=== PATIENT | male | born 1970 | race Caucasian/White ===

== ENCOUNTER 2016-08-10 19:00 | Emergency (ER) | payer MEDICARE, OTHER ==
[2016-08-10 19:58] VITALS: BP 135/76; RESP 18; TEMP 97.8
[2016-08-10 20:39] VITALS: PULSE 74
[2016-08-10] MEDS ORDERED: CLINDAMYCIN 150 MG CAP PO STA (20:46)
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
== END 2016-08-10 21:01 | disposition home or self-care (01) ==
LOC: EC 19:00
DX: K04.7 Periapical abscess without sinus (principal); J44.9 Chronic obstructive pulmonary disease, unspecified; Z87.891 Personal history of nicotine dependence; Z87.01 Personal history of pneumonia (recurrent); Z86.73 Personal history of transient ischemic attack (TIA), and cerebral infarction without residual deficits; Z79.899 Other long term (current) drug therapy; Z79.891 Long term (current) use of opiate analgesic; Z88.2 Allergy status to sulfonamides; Z88.5 Allergy status to narcotic agent; Z88.8 Allergy status to other drugs, medicaments and biological substances
CPT/HCPCS: 99282

== ENCOUNTER → 2016-08-31 | Outpatient (CLI) | payer MEDICARE, OTHER ==
[2016-08-31 11:52] LABS: Basophils % (A) 1 %; CH 31.9; Eosinophils # (A) 0.1 k/uL (0-0.7); Eosinophils % (A) 2 %; HDW 2.98; HGB 14.4 gm/dL (13.0-17.5); Luc # (Auto) 0.22; Luc % (Auto) 5; Lymphocytes # (A) 0.9 k/uL (1.0-4.8); Lymphocytes % (A) 19 %; MCH 31.6 pg (25.0-35.0); MCHC 33.5 g/dL (31.0-37.0); MCV 94.4 fL (80.0-100.0); Mean Platelet Volume 8.6; Monocytes # (A) 0.3 k/uL (0-1.0); Monocytes % (A) 6 %; Neutrophils # (A) 3.3 k/uL (1.3-7.7); Neutrophils % (A) 68 %; RBC 4.56 m/uL (4.30-5.90); RDW 12.9 % (11.5-15.5); WBC 4.9 k/uL (3.8-10.6); WBC (Perox) 5.02
[2016-08-31 12:19] LABS: ALT 64 U/L (21-72); AST 45 U/L (17-59); Alkaline Phosphatase 91 U/L (38-126); Anion Gap 11 mmol/L; Blood Urea Nitrogen 12 mg/dL (9-20); Calcium 9.7 mg/dL (8.4-10.2); Carbon Dioxide 23 mmol/L (22-30); Chloride 110 mmol/L (98-107); Glucose 91 mg/dL (74-99); Non-African American GFR(MDRD) >60 (>60 ml/min/1.73 sqM); Potassium 5.6 mmol/L (3.5-5.1); Sodium 144 mmol/L (137-145); Total Bilirubin 0.5 mg/dL (0.2-1.3); Total Protein 7.7 g/dL (6.3-8.2)
[2016-09-02 13:51] LABS: LOG HIV Copies/mL 5.33 (<1.60)
== END ==
LOC: LABWHC1 11:34
PROVIDERS: ATTEND Internal Medicine Infectious Disease
DX: B20 Human immunodeficiency virus [HIV] disease (principal)
CPT/HCPCS: 36415; 80053; 85025; 86360; 87536

== ENCOUNTER 2016-10-17 07:57 | Emergency (ER) | payer MEDICARE, OTHER ==
[2016-10-17 08:07] VITALS: BP 184/96; PULSE 98; RESP 20; TEMP 97.7
[2016-10-17] MEDS ORDERED: FLUCONAZOLE 100 MG TAB PO STA (08:22)
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
== END 2016-10-17 08:50 | disposition home or self-care (01) ==
LOC: EC 07:57
DX: B37.0 Candidal stomatitis (principal); Z79.899 Other long term (current) drug therapy; Z88.5 Allergy status to narcotic agent; Z88.2 Allergy status to sulfonamides; Z88.8 Allergy status to other drugs, medicaments and biological substances
CPT/HCPCS: 99282

== ENCOUNTER → 2017-01-24 | Outpatient (CLI) | payer MEDICARE, OTHER ==
[2017-01-24 18:12] LABS: Basophils % (A) 1 %; CH 32.9; CHCM 35.3; Eosinophils # (A) 0.2 k/uL (0-0.7); Eosinophils % (A) 4 %; HCT 44.3 % (39.0-53.0); HDW 3.01; HGB 15.1 gm/dL (13.0-17.5); Luc # (Auto) 0.09; Luc % (Auto) 2; Lymphocytes # (A) 0.8 k/uL (1.0-4.8); Lymphocytes % (A) 18 %; MCH 31.8 pg (25.0-35.0); MCV 93.5 fL (80.0-100.0); Mean Platelet Volume 7.8; Monocytes # (A) 0.3 k/uL (0-1.0); Monocytes % (A) 7 %; Neutrophils % (A) 68 %; RBC 4.74 m/uL (4.30-5.90); RDW 14.5 % (11.5-15.5); WBC 4.4 k/uL (3.8-10.6)
[2017-01-24 18:18] LABS: ALT 66 U/L (21-72); AST 40 U/L (17-59); Alkaline Phosphatase 101 U/L (38-126); Anion Gap 11 mmol/L; Blood Urea Nitrogen 13 mg/dL (9-20); Calcium 9.9 mg/dL (8.4-10.2); Carbon Dioxide 27 mmol/L (22-30); Chloride 106 mmol/L (98-107); Glucose 87 mg/dL (74-99); Non-African American GFR(MDRD) >60 (>60 ml/min/1.73 sqM); Potassium 5.2 mmol/L (3.5-5.1); Sodium 144 mmol/L (137-145); Total Bilirubin 0.4 mg/dL (0.2-1.3)
== END | disposition home or self-care (01) ==
LOC: LABWHC1 17:25
PROVIDERS: ATTEND Internal Medicine Infectious Disease
DX: B20 Human immunodeficiency virus [HIV] disease (principal)
CPT/HCPCS: 36415; 80053; 85025; 86360; 87906

== ENCOUNTER → 2017-05-17 | Outpatient (CLI) | payer MEDICARE, OTHER ==
[2017-05-17 13:04] LABS: Basophils # (A) 0.1 k/uL (0-0.2); Basophils % (A) 1 %; CH 30.7; CHCM 33.4; Eosinophils # (A) 0.1 k/uL (0-0.7); Eosinophils % (A) 1 %; HCT 46.7 % (39.0-53.0); HDW 2.72; HGB 15.6 gm/dL (13.0-17.5); Luc # (Auto) 0.05; Luc % (Auto) 1; Lymphocytes # (A) 0.8 k/uL (1.0-4.8); Lymphocytes % (A) 15 %; MCH 30.9 pg (25.0-35.0); MCHC 33.5 g/dL (31.0-37.0); MCV 92.3 fL (80.0-100.0); Mean Platelet Volume 8.1; Monocytes # (A) 0.5 k/uL (0-1.0); Monocytes % (A) 9 %; Neutrophils # (A) 3.9 k/uL (1.3-7.7); Neutrophils % (A) 73 %; RBC 5.06 m/uL (4.30-5.90); RDW 13.8 % (11.5-15.5); WBC 5.3 k/uL (3.8-10.6); WBC (Perox) 5.46
[2017-05-17 14:00] LABS: ALT 75 U/L (21-72); AST 40 U/L (17-59); Alkaline Phosphatase 81 U/L (38-126); Anion Gap 11 mmol/L; Blood Urea Nitrogen 15 mg/dL (9-20); Calcium 10.4 mg/dL (8.4-10.2); Carbon Dioxide 26 mmol/L (22-30); Chloride 106 mmol/L (98-107); Glucose 89 mg/dL (74-99); Non-African American GFR(MDRD) >60 (>60 ml/min/1.73 sqM); Potassium 5.7 mmol/L (3.5-5.1); Sodium 143 mmol/L (137-145); Total Bilirubin 0.4 mg/dL (0.2-1.3); Total Protein 7.5 g/dL (6.3-8.2)
[2017-05-19 15:10] LABS: LOG HIV Copies/mL 5.19 (<1.60)
== END | disposition home or self-care (01) ==
LOC: LABWHC1 12:21
PROVIDERS: ATTEND Internal Medicine Infectious Disease
DX: B20 Human immunodeficiency virus [HIV] disease (principal)
CPT/HCPCS: 36415; 80053; 85025; 86360; 87536

== ENCOUNTER → 2017-07-01 | Outpatient (CLI) | payer MEDICARE, OTHER ==
--- NOTE | 2017-07-03 13:56 | XR ---
EXAMINATION TYPE: XR chest 2V DATE OF EXAM: 07/01/2017 COMPARISON: 01/12/2015 HISTORY: Cough, congestion, and pneumonia TECHNIQUE: Frontal and lateral views of the chest are obtained. FINDINGS: There is improved aeration of the lungs in comparison to the prior exam of 01/12/2015. Pulm onary hyperinflation is evident compatible with underlying COPD. No focal consolidation, pleural effu brock or pneumothorax is seen. Cardiomediastinal silhouette is within normal limits. Osseous structure s are intact. IMPRESSION: No acute cardiopulmonary process.
== END | disposition home or self-care (01) ==
LOC: RADXRMAIN 16:41
PROVIDERS: ATTEND Internal Medicine Infectious Disease
DX: J18.9 Pneumonia, unspecified organism (principal)
CPT/HCPCS: 71046

== ENCOUNTER → 2017-08-31 | Outpatient (CLI) | payer MEDICARE, OTHER ==
[2017-08-31 16:39] LABS: Basophils # (A) 0.1 k/uL (0-0.2); Basophils % (A) 2 %; Eosinophils # (A) 0.1 k/uL (0-0.7); Eosinophils % (A) 3 %; HCT 45.5 % (39.0-53.0); HGB 15.5 gm/dL (13.0-17.5); Lymphocytes # (A) 0.6 k/uL (1.0-4.8); Lymphocytes % (A) 16 %; MCHC 34.1 g/dL (31.0-37.0); Mean Platelet Volume 8.2; Monocytes # (A) 0.4 k/uL (0-1.0); Monocytes % (A) 9 %; Neutrophils # (A) 2.8 k/uL (1.3-7.7); Neutrophils % (A) 69 %; Platelet Count 158 k/uL (150-450); RBC 5.17 m/uL (4.30-5.90)
[2017-08-31 17:32] LABS: ALT 29 U/L (21-72); AST 26 U/L (17-59); Albumin 4.1 g/dL (3.5-5.0); Alkaline Phosphatase 101 U/L (38-126); Anion Gap 10 mmol/L; Blood Urea Nitrogen 15 mg/dL (9-20); Calcium 9.6 mg/dL (8.4-10.2); Carbon Dioxide 31 mmol/L (22-30); Chloride 101 mmol/L (98-107); Glucose 86 mg/dL (74-99); Potassium 4.7 mmol/L (3.5-5.1); Sodium 142 mmol/L (137-145); Total Bilirubin 0.3 mg/dL (0.2-1.3); Total Protein 6.9 g/dL (6.3-8.2)
[2017-09-01 12:32] LABS: T Helper Cell (CD4) 6 cell/ul (443-1471); T Helper Cell (CD4) % <1 % (35-66); T Suppressor Cell (CD8) 295 cell/ul (190-832); T Suppressor Cell (CD8) % 42 % (9-37); T4/T8 Ratio (CD4:CD8) <0.1 (1.0-3.7)
[2017-09-01 14:37] LABS: HIV-1 RNA DETECTED (Not detected)
== END | disposition home or self-care (01) ==
LOC: LABWHC1 16:19
PROVIDERS: ATTEND Internal Medicine Infectious Disease
DX: B20 Human immunodeficiency virus [HIV] disease (principal)
CPT/HCPCS: 36415; 80053; 85025; 86360; 87536; 87901

== ENCOUNTER → 2017-10-26 | Outpatient (CLI) | payer MEDICARE, OTHER ==
[2017-10-26 15:55] LABS: Basophils % (A) 1 %; Eosinophils # (A) 0.2 k/uL (0-0.7); Eosinophils % (A) 3 %; HGB 12.7 gm/dL (13.0-17.5); Lymphocytes # (A) 1.1 k/uL (1.0-4.8); Lymphocytes % (A) 18 %; MCHC 32.6 g/dL (31.0-37.0); MCV 88.9 fL (80.0-100.0); Mean Platelet Volume 7.6; Monocytes # (A) 0.4 k/uL (0-1.0); Monocytes % (A) 6 %; Neutrophils # (A) 4.4 k/uL (1.3-7.7); Neutrophils % (A) 71 %; Platelet Count 242 k/uL (150-450); RBC 4.39 m/uL (4.30-5.90); WBC 6.2 k/uL (3.8-10.6)
[2017-10-26 16:22] LABS: ALT 20 U/L (21-72); AST 21 U/L (17-59); Albumin 3.9 g/dL (3.5-5.0); Alkaline Phosphatase 84 U/L (38-126); Anion Gap 12 mmol/L; Blood Urea Nitrogen 20 mg/dL (9-20); Calcium 9.4 mg/dL (8.4-10.2); Carbon Dioxide 26 mmol/L (22-30); Chloride 106 mmol/L (98-107); Glucose 89 mg/dL (74-99); Potassium 4.3 mmol/L (3.5-5.1); Sodium 144 mmol/L (137-145); Total Bilirubin 0.2 mg/dL (0.2-1.3); Total Protein 6.2 g/dL (6.3-8.2)
[2017-10-27 13:05] LABS: T4/T8 Ratio (CD4:CD8) 0.1 (1.0-3.7)
[2017-10-27 15:33] LABS: HIV-1 RNA DETECTED (Not detected); HIV-1 RNA, Quant 776 Copies/mL (<40)
== END | disposition home or self-care (01) ==
LOC: LABWHC1 15:35
PROVIDERS: ATTEND Internal Medicine Infectious Disease
DX: B20 Human immunodeficiency virus [HIV] disease (principal)
CPT/HCPCS: 36415; 80053; 85025; 86360; 87536

== ENCOUNTER → 2018-01-25 | Outpatient (CLI) | payer MEDICARE, OTHER ==
--- NOTE | 2018-01-25 17:10 | US ---
EXAMINATION TYPE: US carotid duplex BILAT DATE OF EXAM: 01/25/2018 COMPARISON: NONE CLINICAL HISTORY: 47-year-old male I63.9 stroke. LEFT SIDED WEAKNESS TECHNIQUE: Carotid duplex ultrasound examination. Indirect Doppler criteria was utilized. FINDINGS: EXAM MEASUREMENTS: RIGHT: Peak Systolic Velocity (PSV) cm/sec ----- Right CCA: 75.1 ----- Right ICA: 78.0 ----- Right ECA: 69.4 ICA/CCA ratio: 1.0 RIGHT: End Diastole cm/sec ----- Right CCA: 23.0 ----- Right ICA: 35.2 ----- Right ECA: 15.2 LEFT: Peak Systolic Velocity (PSV) cm/sec ----- Left CCA: 68.9 ----- Left ICA: 86.7 ----- Left ECA: 64.9 ICA/CCA ratio: 1.3 LEFT: End Diastole cm/sec ----- Left CCA: 20.5 ----- Left ICA: 43.9 ----- Left ECA: 15.1 VERTEBRALS (direction of flow): Right Vertebral: Antegrade Left Vertebral: Antegrade Rhythm: Normal Embroidery Cutter notes: Mild atherosclerotic changes, no significant velocity elevations. IMPRESSION: No hemodynamically significant stenosis appreciated in either internal carotid artery. Criteria for Assigning % of Stenosis / Diameter reduction (Estimation based on the indirect measurements of the internal carotid artery velocities (ICA PSV). 1. Normal (no stenosis)=ICA PSV < 125 cm/s: ratio < 2.0: ICA EDV<40 cm/s. 2. Less than 50% stenosis=ICA PSV < 125 cm/s: ratio < 2.0: ICA EDV<40 cm/s. 3. 50 to 69% stenosis=ICA PSV of 125 to 230 cm/s: ration 2.0 ? 4.0: ICA EDV 40-100 cm/s. 4. Greater than 70% stenosis to near occlusion= ICA PSV > 230 cm/s: ratio > 4.0: ICA EDV > 100 cm/s. 5. Near occlusion= ICA PSV velocities may be low or undetectable: variable ratio and ICA EDV. 6. Total occlusion=unable to detect flow.
== END | disposition home or self-care (01) ==
LOC: RADUSWWP 14:44
PROVIDERS: ATTEND Psychiatry & Neurology Neurology
DX: I63.9 Cerebral infarction, unspecified (principal)
CPT/HCPCS: 93880

== ENCOUNTER → 2018-03-23 | Outpatient (CLI) | payer MEDICARE, OTHER ==
[2018-03-23 12:23] LABS: Basophils % (A) 1 %; Eosinophils # (A) 0.2 k/uL (0-0.7); Eosinophils % (A) 3 %; HCT 44.9 % (39.0-53.0); HGB 14.8 gm/dL (13.0-17.5); Lymphocytes # (A) 1.4 k/uL (1.0-4.8); Lymphocytes % (A) 24 %; MCH 31.3 pg (25.0-35.0); MCV 94.9 fL (80.0-100.0); Monocytes # (A) 0.4 k/uL (0-1.0); Monocytes % (A) 7 %; Neutrophils # (A) 3.6 k/uL (1.3-7.7); Neutrophils % (A) 63 %; Platelet Count 218 k/uL (150-450); RBC 4.73 m/uL (4.30-5.90); RDW 12.8 % (11.5-15.5); WBC 5.7 k/uL (3.8-10.6)
[2018-03-23 12:57] LABS: Albumin 4.4 g/dL (3.5-5.0); Potassium 4.6 mmol/L (3.5-5.1); Total Bilirubin 0.6 mg/dL (0.2-1.3); Total Protein 7.4 g/dL (6.3-8.2)
[2018-03-24 10:57] LABS: T Helper Cell (CD4) 42 cell/ul (443-1471); T Helper Cell (CD4) % 3 % (35-66); T Suppressor Cell (CD8) 773 cell/ul (190-832); T Suppressor Cell (CD8) % 58 % (9-37); T4/T8 Ratio (CD4:CD8) <0.1 (1.0-3.7)
[2018-03-24 14:23] LABS: HIV-1 RNA DETECTED (Not detected)
== END | disposition home or self-care (01) ==
LOC: LABWHC1 11:27
PROVIDERS: ATTEND Internal Medicine Infectious Disease
DX: B20 Human immunodeficiency virus [HIV] disease (principal)
CPT/HCPCS: 36415; 80053; 85025; 86360; 87536

== ENCOUNTER → 2018-07-04 | Outpatient (CLI) | payer MEDICARE, OTHER ==
[2018-07-04 13:29] LABS: Basophils % (A) 0 %; Eosinophils # (A) 0.1 k/uL (0-0.7); Eosinophils % (A) 2 %; HGB 14.3 gm/dL (13.0-17.5); Lymphocytes # (A) 0.8 k/uL (1.0-4.8); Lymphocytes % (A) 14 %; MCH 30.4 pg (25.0-35.0); MCHC 32.5 g/dL (31.0-37.0); MCV 93.6 fL (80.0-100.0); Mean Platelet Volume 6.6; Monocytes # (A) 0.3 k/uL (0-1.0); Monocytes % (A) 5 %; Neutrophils # (A) 4.8 k/uL (1.3-7.7); Neutrophils % (A) 77 %; Platelet Count 192 k/uL (150-450); RDW 12.7 % (11.5-15.5); WBC 6.2 k/uL (3.8-10.6)
[2018-07-04 19:07] LABS: Albumin 4.4 g/dL (3.80-4.90); Albumin/Globulin Ratio 2.1 (1.20-2.10); Anion Gap 7.4 mmol/L (4.00-12.00); Calcium 9.1 mg/dL (8.7-10.3); Carbon Dioxide 27.6 mmol/L (21.6-31.8); Globulin 2.1 g/dL (1.6-3.3); Potassium 4.6 mmol/L (3.5-5.5); Total Bilirubin 0.4 mg/dL (0.2-1.2); Total Protein 6.5 g/dL (6.2-8.2)
[2018-07-05 12:28] LABS: T Helper Cell (CD4) 13 cell/ul (443-1471); T Helper Cell (CD4) % 2 % (35-66); T Suppressor Cell (CD8) 350 cell/ul (190-832); T Suppressor Cell (CD8) % 44 % (9-37); T4/T8 Ratio (CD4:CD8) <0.1 (1.0-3.7)
[2018-07-05 16:56] LABS: HIV-1 RNA DETECTED (Not detected)
== END ==
LOC: LABWHC1 12:24
PROVIDERS: ATTEND Internal Medicine Infectious Disease
DX: B20 Human immunodeficiency virus [HIV] disease (principal)
CPT/HCPCS: 36415; 80053; 85025; 86360; 87536

== ENCOUNTER 2018-07-11 19:00 | Observation (INO) | payer MEDICARE, OTHER ==
[2018-07-11] MEDS ORDERED: IPRATROPIUM-ALBUTEROL 3 ML NEB INHALATION STA (19:16)
[2018-07-11] MEDS ORDERED: MORPHINE SULFATE 4 MG/ML SYRINGE IV STA (19:16)
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
[2018-07-11 20:11] LABS: Basophils % (A) 1 %; Eosinophils # (A) 0.1 k/uL (0-0.7); Eosinophils % (A) 2 %; HCT 41.4 % (39.0-53.0); HGB 13.9 gm/dL (13.0-17.5); Lymphocytes % (A) 15 %; MCH 30.3 pg (25.0-35.0); MCHC 33.6 g/dL (31.0-37.0); MCV 90.2 fL (80.0-100.0); Mean Platelet Volume 6.8; Monocytes # (A) 0.4 k/uL (0-1.0); Monocytes % (A) 6 %; Neutrophils # (A) 5.3 k/uL (1.3-7.7); Neutrophils % (A) 75 %; Platelet Count 231 k/uL (150-450); RDW 12.2 % (11.5-15.5); WBC 7.1 k/uL (3.8-10.6)
[2018-07-11 20:23] LABS: ALT 44 U/L (21-72); AST 31 U/L (17-59); Alkaline Phosphatase 67 U/L (38-126); Anion Gap 10 mmol/L; Blood Urea Nitrogen 18 mg/dL (9-20); Calcium 9.1 mg/dL (8.4-10.2); Carbon Dioxide 21 mmol/L (22-30); Chloride 107 mmol/L (98-107); Glucose 95 mg/dL (74-99); Potassium 4.8 mmol/L (3.5-5.1); Sodium 138 mmol/L (137-145); Total Bilirubin 0.8 mg/dL (0.2-1.3); Total Protein 7.1 g/dL (6.3-8.2)
[2018-07-11 20:32] LABS: Creatine Kinase 266 U/L (55-170)
[2018-07-11 20:38] LABS: INR 0.8 (<1.2); Prothrombin Time 9.4 sec (9.0-12.0)
[2018-07-11 20:39] LABS: Partial Thromboplastin Time 25.5 sec (22.0-30.0)
[2018-07-11 20:43] LABS: Creatine Kinase MB 2.5 ng/mL (0.0-2.4); Troponin I <0.012 ng/mL (0.000-0.034)
--- NOTE | 2018-07-11 20:46 | XR ---
EXAMINATION: XR chest 3V DATE AND TIME: 07/11/2018 7:51 PM CLINICAL INDICATION: PHH; difficulty breathing TECHNIQUE: 2 frontal and one lateral view COMPARISON: 07/01/2017 FINDINGS: The lungs are clear. The pleural spaces are negative. The cardiac silhouette is not enlarged. The remainder of the mediastinal silhouette is unremarkable. The skeletal structures and soft tissues are negative for acute findings. IMPRESSION: NO ACUTE PROCESS.
[2018-07-11] MEDS ORDERED: methylPREDNISolone SOD SUCCI 125 MG/2 ML VIAL IV STA (20:50)
[2018-07-11] MEDS ORDERED: IPRATROPIUM-ALBUTEROL 3 ML NEB INHALATION PRN (20:50)
[2018-07-11] MEDS ORDERED: LEVOFLOXACIN 750MG-D5W PMX 750 MG in DEXTROSE/WATER 1 150ML.BAG IVPB STA (20:51)
[2018-07-12] MEDS: methylPREDNISolone SOD SUCCI 125 MG/2 ML VIAL IV SCH ×4 (00:07→18:39)
[2018-07-12] MEDS: HYDROcodone/APAP 7.5-325MG 1 EACH TAB PO PRN ×3 (00:07→12:16)
[2018-07-12] MEDS: IPRATROPIUM-ALBUTEROL 3 ML NEB INHALATION SCH ×3 (06:16→15:14)
[2018-07-12] MEDS ORDERED: SYMBICORT 160-4.5 MCG INHALER INHALATION SCH (08:00)
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
[2018-07-12] MEDS ORDERED: NICOTINE 14MG/24HR PATCH TRANSDERM SCH (11:30)
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
[2018-07-12 16:25] VITALS: BP 108/66; PULSE 98; RESP 18; TEMP 97.8
[2018-07-12 17:36] LABS: Glucose,Whole Blood 170 mg/dL (75-99)
[2018-07-12 20:04] LABS: Hemoglobin A1C 5.7 % (4.0-6.0)
[2018-07-12] MEDS ORDERED: LEVOFLOXACIN 750MG-D5W PMX 750 MG in DEXTROSE/WATER 1 150ML.BAG IVPB SCH (21:00)
--- NOTE | 2018-07-12 23:22 | P.CON ---
Consult Note - . Consult date: 07/12/18 Assessment/Plan:: This is a 48-year-old male patient of Dr. Sneed currently under treatment for HIV and on Juluca daily which patient states he has been taking as ordered but missed today's dose. Patient did not bring his medication to the hospital but will work on finding someone to do so. Patient complains of shortness of breath for the past weekwith underlying history of COPD. Patient states he's had a cough with green or yellow sputum production. No fever. Patient presented to [facility] emergency center found to be afebrile, heart rate in the low 100s, pulse ox 91%, white count 7.1, creatinine 1.06. Chest x-ray showed no acute process. The patient was started on nebulizer treatments, IV steroids, IV Levaquin and admitted to the [facility] floor. Patient is followed by Dr. Ferguson from pulmonary medicine. He states his breathing is a little bit better from yesterday but still feels chest congestion. Regarding HIV follow-up, patient had lab work done on July 04 which revealed T suppressor cells 350, percentage of CD4 helper to, absolute CD4 helper 13, CD4/CD8 ratio less than 0.1, percentage CD8 suppressor 44. HIV- 1 RNA quantitative is 304,079, HIV RNA log copies 5.48, HIV RNA PCR detected high. patient has history of pneumocystic carinii pneumonia in 2015. Please see the consult note is dictated by nurse practitioner Mrs. Susu España. Patient presents with acute exacerbations underlying COPD. Recently was seen in the office radiated fever chills and likely had influenza and was treated with Tamiflu. He now presents with the significant worsening of shortness of breath. Unclear if he was able to obtain his nebulizer treatments. We will working with the insurance company to have them authorized. Patient is improving she'll follow-up in the office in nature. At time it is appear that he is leaving the hospital. I agree with evaluation, assessment and plan is to continue nurse practitioner Mrs. Susu España.
[2018-07-13 12:32] LABS: T Helper Cell (CD4) 17 cell/ul (443-1471); T Helper Cell (CD4) % 2 % (35-66); T Suppressor Cell (CD8) 483 cell/ul (190-832); T Suppressor Cell (CD8) % 45 % (9-37); T4/T8 Ratio (CD4:CD8) <0.1 (1.0-3.7)
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
--- NOTE | 2018-07-13 15:00 | P.DS ---
Providers Date of admission: 07/11/18 20:48 Expected date of discharge: 07/12/18 Attending physician: Star Lawrence Consults: 07/11/18 20:50 Consult Physician Routine Consulting Provider: Dong Sneed Consult Reason/Comments: copd, hiv Do you want consulting provider notified?: Yes Consult Physician Routine Consulting Provider: Deniz Ferguson Consult Reason/Comments: dyspnea Do you want consulting provider notified?: Yes Primary care physician: Dong Sneed [facility] Course: Discharge diagnosis Acute hypoxic respiratory failure secondary to COPD exacerbation Acute tracheobronchitis Acute COPD exacerbation History of PCP pneumonia in 2014 Recently treated for possible influenza infection with Tamiflu 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 Patient was recently treated with Tamiflu for possible influenza infection. Patient also has a history of PCP pneumonia in the past.On 2018 his CD4 count was at 2% on the absolute CD4 helper 13, CD4/CD8 ratio less than 0.1, CD8 suppressor 44%. Patient also has significant weakness and fatigue as well. No fever no chills. No nausea vomiting or abdominal pain. Patient does smoke about 4 cigarettes per day, cutting down from 2 packs per day. Chest x-ray showed no acute cardiopulmonary process WBC 7.1 hemoglobin 13.9 creatinine 1.06 Troponin 1 negative Albumin 4.0. Patient does have bilateral diffuse wheezing and diminished breath sounds. Patient follows with Dr. Sneed as an outpatient. Patient was continued on IV Solu-Medrol 60 mg every 6 hourly along with antibiotics in the form of levofloxacin. Continue with home medications. Patient did improve clinically and is requesting to be discharged home today. Patient be continued on steroid tapering course along with antibiotics as as an outpatient. Recommended to follow up with Dr. Sneed in the clinic. Discharge physical examination was done and vitals reviewed Vital Signs (72 hours) 07/11/18 07/11/18 07/11/18 19:04 19:55 20:05 Temperature 98.8 F Pulse Rate 112 H 131 H 108 H Pulse Rate [ Pulse Oximetery ] Respiratory 24 20 22 Rate Blood Pressure 129/89 113/78 Blood Pressure [Left Arm] O2 Sat by Pulse 91 L 96 Oximetry 07/11/18 07/11/18 07/11/18 20:09 22:29 23:35 Temperature 98.7 F 97.4 F L Pulse Rate 126 H 92 Pulse Rate [ 108 H Pulse Oximetery ] Respiratory 20 18 22 Rate Blood Pressure 124/76 Blood Pressure [Left Arm] O2 Sat by Pulse 96 Oximetry 07/12/18 07/12/18 07/12/18 00:30 02:27 06:16 Temperature Pulse Rate 92 Pulse Rate [ Pulse Oximetery ] Respiratory 20 Rate Blood Pressure Blood Pressure 115/66 [Left Arm] O2 Sat by Pulse 92 L Oximetry 07/12/18 07/12/18 07/12/18 06:24 07:00 08:00 Temperature 97.5 F L Pulse Rate 80 Pulse Rate [ 91 Pulse Oximetery ] Respiratory 16 16 Rate Blood Pressure Blood Pressure 114/70 [Left Arm] O2 Sat by Pulse 93 L Oximetry 07/12/18 07/12/18 07/12/18 11:19 11:30 14:10 Temperature 97.8 F Pulse Rate 96 96 Pulse Rate [ 98 Pulse Oximetery ] Respiratory 18 Rate Blood Pressure Blood Pressure 108/66 [Left Arm] O2 Sat by Pulse 93 L Oximetry 07/12/18 07/12/18 07/12/18 15:14 15:25 16:00 Temperature Pulse Rate 96 96 Pulse Rate [ Pulse Oximetery ] Respiratory 18 Rate Blood Pressure Blood Pressure [Left Arm] O2 Sat by Pulse Oximetry Patient Condition at Discharge: Fair Plan - Discharge Summary Discharge Rx Participant: Yes New Discharge Prescriptions: New Levofloxacin 750 mg PO DAILY #4 tablet predniSONE 40 mg PO DAILY 5 Days #10 tab Continue Dolutegravir/Rilpivirine [Juluca 50-25 mg Tablet] 1 tab PO DAILY Acetaminophen [Tylenol Extra Strength] 1,000 mg PO BID PRN PRN Reason: Pain Ipratropium-Albuterol Nebulize [Duoneb 0.5 mg-3 mg/3 ml Soln] 3 ml INHALATION RT-BID PRN PRN Reason: Shortness Of Breath Discharge Medication List Acetaminophen [Tylenol Extra Strength] 1,000 mg PO BID PRN 07/11/18 [History] Dolutegravir/Rilpivirine [Juluca 50-25 mg Tablet] 1 tab PO DAILY 07/11/18 [ History] Ipratropium-Albuterol Nebulize [Duoneb 0.5 mg-3 mg/3 ml Soln] 3 ml INHALATION RT -BID PRN 07/11/18 [History] Levofloxacin 750 mg PO DAILY #4 tablet 07/12/18 [Rx] predniSONE 40 mg PO DAILY 5 Days #10 tab 07/12/18 [Rx] Follow up Appointment(s)/Referral(s): Dong Sneed MD [Primary Care Provider] - 1-2 days Discharge Disposition: Left Against Medical Advice
== END 2018-07-12 18:36 | disposition left against medical advice (07) ==
LOC: EC 19:00 → 4MS4W 20:48
PROVIDERS: ADMIT Internal Medicine; ATTEND Internal Medicine
DX: J44.1 Chronic obstructive pulmonary disease with (acute) exacerbation (principal); J96.01 Acute respiratory failure with hypoxia; J44.0 Chronic obstructive pulmonary disease with (acute) lower respiratory infection; J20.9 Acute bronchitis, unspecified; B20 Human immunodeficiency virus [HIV] disease; I69.354 Hemiplegia and hemiparesis following cerebral infarction affecting left non-dominant side; M21.372 Foot drop, left foot; F17.210 Nicotine dependence, cigarettes, uncomplicated; Z79.899 Other long term (current) drug therapy; Z88.1 Allergy status to other antibiotic agents; Z88.2 Allergy status to sulfonamides; Z88.5 Allergy status to narcotic agent; Z88.8 Allergy status to other drugs, medicaments and biological substances; Z87.01 Personal history of pneumonia (recurrent); Z87.19 Personal history of other diseases of the digestive system; Z86.19 Personal history of other infectious and parasitic diseases; Z87.820 Personal history of traumatic brain injury; Z98.41 Cataract extraction status, right eye; Z82.49 Family history of ischemic heart disease and other diseases of the circulatory system
CPT/HCPCS: 96376; 96365; 96366; 96375; 99285; 36415; 94640 ×3; 93005; 80053; 86360; 82550; 82553; 84484; 85025; 85610; 85730; 87040; 83036; 71046; G0378 ×2; J2270; J2930 ×2; J1956

== ENCOUNTER 2019-06-25 08:39 | Inpatient (IN) | payer MEDICARE, OTHER ==
[2019-06-25] MEDS ORDERED: IPRATROPIUM 0.5 MG/2.5 ML NEBU INHALATION STA (09:08)
[2019-06-25] MEDS ORDERED: ALBUTEROL NEBULIZED 2.5 MG/3 ML INHALATION STA (09:08)
[2019-06-25] MEDS ORDERED: SODIUM CHLORIDE 0.9% 1,000 ML IV STA (09:08)
[2019-06-25] MEDS ORDERED: ACETAMINOPHEN TAB 500 MG TAB PO STA (09:12)
[2019-06-25] MEDS ORDERED: IBUPROFEN 600 MG TAB PO STA (09:13)
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
[2019-06-25] MEDS: methylPREDNISolone SOD SUCCI 125 MG/2 ML VIAL IV STA ×2 (09:41→09:45)
[2019-06-25 09:44] LABS: Basophils # (A) 0.1 k/uL (0-0.2); Basophils % (A) 1 %; Eosinophils % (A) 0 %; HCT 32.5 % (39.0-53.0); Lymphocytes # (A) 0.3 k/uL (1.0-4.8); Lymphocytes % (A) 4 %; MCH 28.8 pg (25.0-35.0); MCV 84.8 fL (80.0-100.0); Mean Platelet Volume 8.3; Monocytes # (A) 0.4 k/uL (0-1.0); Monocytes % (A) 6 %; Neutrophils # (A) 5.9 k/uL (1.3-7.7); Neutrophils % (A) 87 %; Platelet Count 157 k/uL (150-450); RBC 3.83 m/uL (4.30-5.90); RDW 14.1 % (11.5-15.5); WBC 6.8 k/uL (3.8-10.6)
[2019-06-25 09:56] LABS: INR 0.9 (<1.2); Partial Thromboplastin Time 27.6 sec (22.0-30.0); Prothrombin Time 9.4 sec (9.0-12.0)
[2019-06-25 10:04] LABS: ALT 28 U/L (4-49); AST 43 U/L (17-59); African American GFR (CKD) >90 (>60 ml/min/1.73 sqM); Albumin 3.7 g/dL (3.5-5.0); Alkaline Phosphatase 68 U/L (38-126); Anion Gap 11 mmol/L; Blood Urea Nitrogen 20 mg/dL (9-20); Calcium 8.8 mg/dL (8.4-10.2); Carbon Dioxide 20 mmol/L (22-30); Chloride 102 mmol/L (98-107); Glucose 98 mg/dL (74-99); Magnesium 1.7 mg/dL (1.6-2.3); Non-African American GFR(CKD) >90 (>60 ml/min/1.73 sqM); Potassium 4.6 mmol/L (3.5-5.1); Sodium 133 mmol/L (137-145); Total Bilirubin 0.5 mg/dL (0.2-1.3); Total Protein 6.6 g/dL (6.3-8.2)
--- NOTE | 2019-06-25 10:18 | XR ---
EXAMINATION TYPE: XR chest 2V DATE OF EXAM: 06/25/2019 COMPARISON: 07/11/2018 HISTORY: Difficulty breathing TECHNIQUE: Frontal and lateral views of the chest are obtained. FINDINGS: There is no focal air space opacity, pleural effusion, or pneumothorax seen. Pulmonary hyp erinflation of underlying COPD with flattening of diaphragms bilaterally. Bilateral symmetric nipple shadows are incidentally noted. The cardiac silhouette size is within normal limits. The osseous s tructures are intact. IMPRESSION: No acute cardiopulmonary process. Underlying COPD.
[2019-06-25] MEDS ORDERED: SODIUM CHLORIDE 0.9% 1,000 ML IV ONE (11:37)
[2019-06-25] MEDS ORDERED: IPRATROPIUM-ALBUTEROL 3 ML NEB INHALATION PRN ×2 (12:35→15:05)
[2019-06-25] MEDS ORDERED: LACTULOSE 20 GM/30 ML CUP PO PRN (15:10)
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
--- NOTE | 2019-06-25 15:54 | CT ---
EXAMINATION TYPE: CT angio chest DATE OF EXAM: 06/25/2019 COMPARISON: Radiograph same day HISTORY: 49 year-old male shortness of breath, Difficulty breathing. Rule out PE. TECHNIQUE: Contiguous axial scanning of the chest performed with IV Contrast, patient injected with 7 2ml mL of Isovue 370. Coronal/sagittal MIP reconstructions performed. CT DLP: 245.9 mGycm Automated exposure control for dose reduction was used. FINDINGS: Heart normal size with trace anterior pericardial fluid measuring 4 m thick. No flattening of the int erventricular septum or reflux of contrast into the hepatic veins. Aorta normal caliber with conventional access of branching anatomy. Prominent right hilar lymph node measuring 1.2 cm. Otherwise, no thoracic lymphadenopathy. Mild to moderate circumferential wall thickening distal third esophagus, refer to axial image 95 and 86. Satisfactory opacification of the pulmonary artery system without evidence for pulmonary embolus. Numerous centrilobular and some tree-in-bud nodularity throughout the mid and lower lungs, greatest d ependently within the basilar lower lobes. Moderate diffuse bronchial wall thickening. Background of mild to moderate upper lung centrilobular emphysema. Some nonspecific patchy right uppe r lobe densities, axial image 28 and 33 reassessed at follow-up. Visualized upper abdomen is very limited on this phase of imaging and due to the paucity of intra-abd ominal fat. Bones: No osseous destructive process. IMPRESSION: 1. NO EVIDENCE FOR PULMONARY EMBOLUS. 2. CENTRILOBULAR NODULES AND TREE-IN-BUD OPACITIES THROUGHOUT THE MID AND LOWER LUNGS, MOST EXTENSIVE WITHIN THE DEPENDENT BASILAR LOWER LOBES. CORRELATE FOR ATYPICAL INFECTIONS OR ASPIRATION PNEUMONITI S. 3. CIRCUMFERENTIAL WALL THICKENING DISTAL ESOPHAGUS COULD REPRESENT ESOPHAGITIS. IF PATIENT HAS RISK FACTORS FOR ESOPHAGEAL NEOPLASM, DIRECT VISUALIZATION WOULD BE RECOMMENDED. 4. COPD WITH [id number] EMPHYSEMA. A COUPLE MORE FOCAL DENSITIES IN THE RIGHT UPPER LOBE FOR WH ICH A THREE-MONTH FOLLOW-UP CT IS RECOMMENDED.
[2019-06-25] MEDS ORDERED: methylPREDNISolone SOD SUCCI 125 MG/2 ML VIAL IV SCH (18:00)
[2019-06-25] MEDS: CLINDAMYCIN 900 MG in DEXTROSE 5% IN WATER 50 ML IVPB SCH ×2 (22:15)
[2019-06-25] MEDS: SODIUM CHLORIDE 0.9% 1,000 ML IV SCH (22:15)
[2019-06-25] MEDS: SYMBICORT 160-4.5 MCG INHALER INHALATION SCH (22:23)
[2019-06-25] MEDS: FAMOTIDINE 20 MG TAB PO SCH (23:26)
[2019-06-25] MEDS: predniSONE 20 MG TAB PO SCH (23:26)
[2019-06-25] MEDS: HEPARIN SODIUM,PORCINE 5,000 UNIT/ML 1 ML VIAL SQ SCH (23:27)
[2019-06-25 23:56] LABS: Appearance,Urine Clear (Clear); Bilirubin,Urine Negative (Negative); Blood,Urine Negative (Negative); Color,Urine Light Yellow; Glucose,Urine (UA) Negative (Negative); Ketones,Urine Negative (Negative); Leukocyte Esterase,Urine Negative (Negative); Nitrite,Urine Negative (Negative); PH, Urine 5.5 (5.0-8.0); Protein,Urine Negative (Negative); Specific Gravity,Urine 1.028 (1.001-1.035); Urobilinogen,Urine <2.0 mg/dL (<2.0)
--- NOTE | 2019-06-26 05:29 | CONS ---
CONSULTATION DATE OF SERVICE: 06/25/2019 REASON FOR CONSULTATION: HIV. HISTORY OF PRESENT ILLNESS: The patient is a 49-year-old male with a past medical history significant for HIV AIDS. This patient who is under care of Dr. Sneed. Apparently the patient has failed multiple treatment regimens and on a recent blood draw he was noticed to have a CD4 count of 1 and a viral load of 2.4 million. The patient apparently was supposed to be started on newer HIV regimen in the form of Symtuza, however, started taking this medication. The patient presented to [facility] ER this morning with a chief complaint of shortness of breath that apparently has been getting worse over the last one month. The patient also complaining of chills but denies high-grade fever. The patient denies having any chest pain. The patient did have some cough with occasional sputum production. No nausea, no vomiting. No choking on the food. No abdominal pain or any diarrhea. On arrival to the ER, the patient did have a low-grade fever of 100.3. The patient's white count was 6.8, creatinine 0.96. The patient did have a chest x-ray which shows no acute cardiopulmonary process, underlying COPD. Subsequently did have a CT angiogram done which did show no evidence of PE, however, did show centrilobular nodules and tree-in-bud opacity throughout mid and lower lungs, more extensive dependent portion. Correlates for atypical infection or aspiration pneumonitis. I was asked to see the patient regarding his management of HIV and need for antibiotic therapy. The patient overall not a very good historian so most of the history has to be exerted from review of his chart here in the hospital as well as his chart at the . REVIEW OF SYSTEMS: Positive points have been mentioned in HPI. Rest of systems negative. PAST MEDICAL HISTORY: Significant for COPD, CVA, TIA, HIV, AIDS, pneumonia. PAST SURGICAL HISTORY: Right cataract surgery, liver biopsy and bronchoscopy. SOCIAL HISTORY: Remote history of smoking. No drinking or drug use. FAMILY HISTORY: Mother had history of coronary artery disease. ALLERGIES: Allergies to LAMIVUDINE, SULFAMETHOXAZOLE, ZIDOVUDINE, CODEINE. MEDICATIONS: Medication include the patient is currently on DuoNeb, Symbicort, famotidine, fluconazole, heparin, lactulose, and received a dose of Rocephin and Solu-Medrol on arrival to the ER. PHYSICAL EXAMINATION: On examination, blood pressure is 92/58 with a pulse of 98, temperature of 98.9. He is 98% on 2 L nasal cannula. On arrival, the patient hypoxic with O2 sats of 89%. General description is a middle-aged male, cachectic, lying in bed in no distress. HEENT EXAMINATION: Slight pallor. No scleral icterus. is moist with evidence of thrush. NECK: Trachea central. No thyromegaly. LUNGS: Unlabored breathing. Decreased intensive breath sounds. No wheeze. HEART: S1, S2. Regular rate and rhythm. ABDOMEN: Soft, no tenderness. No guarding or rigidity. EXTREMITIES: No edema of feet. SKIN EXAMINATION: No rashes or mass palpable. NEUROLOGICALLY: The patient is awake, alert and oriented x2. Mood and affect normal. LABS: Hemoglobin 11, white count 6.8, BUN of 20, creatinine 0.96. Electrolytes have been normal. Liver enzymes are normal. Lactic acid is 1.2. DIAGNOSTIC IMPRESSION AND PLAN: 1. Patient admitted to the hospital with increasing shortness of breath in this patient who was hypoxic on presentation to the hospital. The patient did have an abnormal CT suspicious for atypical infection. This patient did have underlying HIV AIDS with a CD4 count of 1. PCP will be on the top of the list. 2. Patient who did have a SULFA allergy as well as some of his HIV MEDICATION limiting the choices for treatment. PLAN: 1. We will start the patient on clindamycin 900 IV q.8 in addition to the Primaquine 30 mg daily for his possible PCP pneumonia and will add prednisone 40 mg twice a day. 2. We will try to obtain sputum for PCP stain. 3. Once his pneumonia stabilizes, we will review his HIV genotype to see if we have any treatment option left; however, as for review of his note, the patient has been offered hospice by his primary ID physician because of no option available to treat his underlying HIV AIDS. Thank you for this consultation. Will follow this patient along with you. MMODL / IJN: [id number] /
[2019-06-26] MEDS: CLINDAMYCIN 900 MG in DEXTROSE 5% IN WATER 50 ML IVPB SCH ×6 (07:18→19:27)
[2019-06-26] MEDS: SODIUM CHLORIDE 0.9% 1,000 ML IV SCH ×3 (07:18→21:20)
[2019-06-26] MEDS: FLUCONAZOLE 100 MG TAB PO SCH (07:43)
[2019-06-26] MEDS: FAMOTIDINE 20 MG TAB PO SCH ×2 (07:43→20:00)
[2019-06-26] MEDS: predniSONE 20 MG TAB PO SCH ×2 (07:43→20:00)
[2019-06-26] MEDS: HEPARIN SODIUM,PORCINE 5,000 UNIT/ML 1 ML VIAL SQ SCH ×2 (07:44→07:47)
[2019-06-26 08:23] LABS: HCT 28.7 % (39.0-53.0); HGB 9.6 gm/dL (13.0-17.5); MCH 29.3 pg (25.0-35.0); MCHC 33.5 g/dL (31.0-37.0); MCV 87.6 fL (80.0-100.0); Mean Platelet Volume 8.4; Platelet Count 151 k/uL (150-450); RBC 3.27 m/uL (4.30-5.90); RDW 14.3 % (11.5-15.5); WBC 4.1 k/uL (3.8-10.6)
[2019-06-26 08:28] LABS: African American GFR (CKD) >90 (>60 ml/min/1.73 sqM); Anion Gap 6 mmol/L; Blood Urea Nitrogen 14 mg/dL (9-20); Calcium 8.5 mg/dL (8.4-10.2); Carbon Dioxide 21 mmol/L (22-30); Chloride 111 mmol/L (98-107); Glucose 121 mg/dL (74-99); Magnesium 1.7 mg/dL (1.6-2.3); Non-African American GFR(CKD) >90 (>60 ml/min/1.73 sqM); Potassium 5.3 mmol/L (3.5-5.1); Sodium 138 mmol/L (137-145)
[2019-06-26] MEDS: SYMBICORT 160-4.5 MCG INHALER INHALATION SCH ×2 (08:46→20:38)
[2019-06-26] MEDS ORDERED: INFLUENZA VACCINE (6 MOS+) 60 MCG/0.5 ML SYRINGE IM ONE (10:00)
[2019-06-26] MEDS: PRIMAQUINE PO SCH (12:21)
--- NOTE | 2019-06-26 14:04 | P.PN ---
Subjective Patient given a shot is up breath CAT scan of the chest showed nodular infiltrates patient is being treated for PCP pneumonia, patient may need bronc hial lavage and may need to consider Mycobacterium avium complex because of which I'm consulting pulmonology. Patient is feeling bit better today, patient was started on the Premarin and clindamycin for possible pneumocystis generally daily pneumonia and patient is also started on prednisone for inflammation secondary to pneumocystis 0 achy possibility of COPD exacerbation is low although patient has very minimal wheeze on exam good air entry into bilateral lung valdez, CD4 count is pending patient is not on antiretroviral therapy at this time, patient is not on oxygen today Constitutional: Denied any fatigue denied any fever. Cardio vascular: denied any chest pain, palpitations Gastrointestinal denied any nausea vomiting Pulmonary: As mentioned above Neurologic denied any new focal deficits All inpatient medications were reviewed and appropriate changes in these medications as dictated in the interval history and assessment and plan. Objective - Vital Signs Vital signs: Vital Signs Temp 98.7 F 06/26/19 07:00 Pulse 68 06/26/19 07:00 Resp 17 06/26/19 08:00 BP 104/66 06/26/19 07:00 Pulse Ox 99 06/26/19 07:00 Intake & Output 06/25/19 06/26/19 06/26/19 18:59 06:59 18:59 Output Total 725 Balance -725 Weight 52.163 kg 52.163 kg Output: Urine 725 Other: Voiding Method Urinal Urinal # Voids 2 - Exam PHYSICAL EXAMINATION: GENERAL: The patient is alert and oriented x3, not in any acute distress. Thin built cachectic male HEENT: Pupils are round and equally reacting to light. EOMI. No scleral icterus. No conjunctival pallor. Normocephalic, atraumatic. No pharyngeal erythema. No thyromegaly. CARDIOVASCULAR: S1 and S2 present. No murmurs, rubs, or gallops. PULMONARY: Chest is clear to auscultation, no wheezing or crackles. ABDOMEN: Soft, nontender, nondistended, normoactive bowel sounds. No palpable or ganomegaly. MUSCULOSKELETAL: No joint swelling or deformity. EXTREMITIES: No cyanosis, clubbing, or pedal edema. NEUROLOGICAL: Gross neurological examination did not reveal any focal deficits. SKIN: No rashes. - Labs CBC & Chem 7: 06/26/19 07:44 06/26/19 07:44 Labs: Abnormal Lab Results - Last 24 Hours (Table) 06/26/19 06/26/19 Range/Units 07:44 07:44 RBC 3.27 L (4.30-5.90) m/uL Hgb 9.6 L (13.0-17.5) gm/dL Hct 28.7 L (39.0-53.0) % Potassium 5.3 H (3.5-5.1) mmol/L Chloride 111 H (98-107) mmol/L Carbon Dioxide 21 L (22-30) mmol/L Creatinine 0.65 L (0.66-1.25) mg/dL Glucose 121 H (74-99) mg/dL Assessment and Plan Plan: -Shortness of breath: Probably secondary to pneumocystis jiroveci pneumonia that may be a competent of mild COPD exacerbation patient will be continued on systemic steroids clindamycin and Primaquine and and CD4 count is pending patient is ALLERGIC to Bactrim. CT angios the chest did not show any pulmonary embolism did show some nodular infiltrate consistent with atypical pneumonia pulmonology was consulted -Fever source is probably pneumocystis Carni pneumonia -Hyponatremia hypovolemic hyponatremia patient was also tachycardic and admission, these improved with IV fluids -HIV appears to be highly noncompliant with medications continue on flucanazole patient is apparently ALLERGIC to Bactrim. I awaiting CD4 count. -Nezt-[id number] protein calorie malnutrition from HIV and probably nonc ompliant with medications. -Constipation continue as needed lactulose -DVT prophylaxis obtain his heparin
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
--- NOTE | 2019-06-27 00:27 | PN ---
PROGRESS NOTE DATE OF SERVICE: 06/26/2019 REASON FOR FOLLOW UP: 1. HIV. 2. Pneumonia possible PCP. INTERVAL HISTORY: The patient is currently afebrile. Patient is breathing slightly comfortably. The patient denies having any chest pain. He did have some cough, not bringing up any sputum. No nausea, no vomiting. No abdominal pain. No diarrhea. PHYSICAL EXAMINATION: Blood pressure 110/62 with a pulse of 76. Temperature 97.9. He is 99% on room air. General description is middle-aged male lying in bed in no distress. Respiratory system: Unlabored breathing, decreased intensity breath sounds. No wheeze. Heart S1, S2. Regular rate and rhythm. Abdomen soft. No tenderness. LABS: Hemoglobin 9.6, white count 4.1 BUN of 14, creatinine 0.65. Sputum cultures currently pending. DIAGNOSTIC IMPRESSION AND PLAN: 1. Patient admitted to the hospital with fever in this patient who did have an HIV AIDS concern for possible PCP pneumonia with SULFA ALLERGY. Patient is currently covered on clindamycin and primaquine along with steroid to continue marking and monitor clinical course closely. 2. Patient with HIV with multiple treatment failure, genotype will be requested to see if the patient has any option for treatment. MMODL / IJN: [id number] /
[2019-06-27] MEDS: CLINDAMYCIN 900 MG in DEXTROSE 5% IN WATER 50 ML IVPB SCH ×6 (02:22→19:41)
[2019-06-27] MEDS: SODIUM CHLORIDE 0.9% 1,000 ML IV SCH ×2 (08:20→16:49)
[2019-06-27] MEDS: FLUCONAZOLE 100 MG TAB PO SCH (08:21)
[2019-06-27] MEDS: predniSONE 20 MG TAB PO SCH ×2 (08:21→20:02)
[2019-06-27] MEDS: HEPARIN SODIUM,PORCINE 5,000 UNIT/ML 1 ML VIAL SQ SCH ×3 (08:21→20:04)
[2019-06-27] MEDS: FAMOTIDINE 20 MG TAB PO SCH ×2 (08:21→20:02)
[2019-06-27] MEDS: PRIMAQUINE PO SCH (08:22)
[2019-06-27] MEDS: SYMBICORT 160-4.5 MCG INHALER INHALATION SCH ×2 (08:51→20:29)
[2019-06-27 09:52] LABS: ALT 17 U/L (4-49); AST 24 U/L (17-59); African American GFR (CKD) >90 (>60 ml/min/1.73 sqM); Albumin 3.1 g/dL (3.5-5.0); Alkaline Phosphatase 59 U/L (38-126); Anion Gap 8 mmol/L; Blood Urea Nitrogen 16 mg/dL (9-20); Calcium 8.8 mg/dL (8.4-10.2); Carbon Dioxide 22 mmol/L (22-30); Chloride 108 mmol/L (98-107); Glucose 104 mg/dL (74-99); Non-African American GFR(CKD) >90 (>60 ml/min/1.73 sqM); Potassium 4.9 mmol/L (3.5-5.1); Sodium 138 mmol/L (137-145); Total Bilirubin 0.3 mg/dL (0.2-1.3); Total Protein 5.8 g/dL (6.3-8.2)
--- NOTE | 2019-06-27 12:49 | P.PN ---
Subjective Progress Note Date: 06/27/19 Principal diagnosis: Acute hypoxic respiratory failure secondary to multilobar pneumonia in an immunocompromised host. 49-year-old white male with history of HIV AIDS, who has failed multiple treatment regimes, and his most recent CD4 count of 1, and a viral load of 2.4 million. Patient has a history of previous Pneumocystis carinii pneumonia diagnosed by bronchoscopy by Dr. Verde in 2015. Other medical history includes COPD, CVA/TIA with residual left-sided weakness previous episode of GI bleeding, previous episodes of pneumonia, ADD/ADHD, former smoker, strongly of CMV, and shingles several years ago. Last time she was seen by our group was last here in June 2018 and patient was treated for acute COPD exacerbation with tracheobronchitis. Over the last 2-3 months patient has been increasingly weak, lately has been complaining of cough with gutierrez phlegm production, chest pain, increased shortness of breath, and fever of 103F. He states he has lost over 100 pounds in the last 6 months. He denies any hemoptysis. Patient has been complaining of chills. Denied nausea or vomiting, does have chronic constipation. Chest x-ray was obtained showing no acute cardiopulmonary process and underlying COPD. CTA chest was negative for any evidence of pulmonary embolism, did show centrilobular nodules and tree and blood opacities throughout the mid and lower lungs, most extensive within the dependent basilar lower lobes that could correlate for atypical infection or aspiration pneumonitis. There was circumferential wall thickening distal esophagus that could represent esophagitis. Focal densities in the right upper lobe were noted for which a 3 month follow-up was recommended. Lab work showed white blood cell count of 6.8, hemoglobin of 11.0, placed, 157, coagulation profile was within normal limits, sodium was 133, potassium was 4.6, chloride was 102, CO2 is 20, BUN was 20 and creatinine was 0.96, troponin was less than 0.012 times one, urinalysis was negative. Patient has ALLERGIES to sulfa antibiotics, patient was started on a combination of Diflucan, clindamycin, Primaquin for possibility of PCP pneumonia per ID service. The patient is seen today in 06/27/2019 in follow-up on the regular medical floor. He is an AFB precautions currently. Initial sputum showing no AFB. He is currently awake and alert in no acute distress. He is breathing a bit easier today compared to yesterday. Continues with a productive cough. Maintaining O2 saturation in the high 90s on room air. He's been afebrile. Hemodynamically stable. He remains on DuoNeb inhalations, Symbicort, oral prednisone, clindamycin, Diflucan. He has 0.9 normal saline at 100 ML's per hour. Sputum culture pending with Susie thus far, fungal cultures pending. Blood culture reveals no growth. Sodium 138. Potassium 4.9. Creatinine 0.71. Influenza screen negative. Objective - Vital Signs Vital signs: Vital Signs Temp 97.3 F L 06/27/19 05:00 Pulse 59 L 06/27/19 05:00 Resp 20 06/27/19 05:00 BP 111/71 06/27/19 05:00 Pulse Ox 98 06/27/19 05:00 Intake & Output 06/26/19 06/27/19 06/27/19 18:59 06:59 18:59 Intake Total 700 Output Total 500 Balance 700 -500 Weight 52.163 kg Intake: Oral 700 Output: Urine 500 Other: Voiding Method Urinal Urinal Urinal # Voids 3 - Exam GENERAL EXAM: Alert, pleasant, cachectic-looking 49-year-old male patient on room air, with a pulse ox of 99% comfortable in no apparent distress. HEAD: Normocephalic/atraumatic. EYES: Normal reaction of pupils, equal size. Conjunctiva pink, sclera white. NOSE: Clear with pink turbinates. THROAT: No erythema or exudates. NECK: No masses, no JVD, no thyroid enlargement, no adenopathy. CHEST: No chest wall deformity. Symmetrical expansion. LUNGS: Diminished air entry with bilateral scattered rhonchi, diminished. CVS: Regular rate and rhythm, normal S1 and S2, no gallops, no murmurs, no rubs ABDOMEN: Soft, nontender. No hepatosplenomegaly, normal bowel sounds, no guarding or rigidity. EXTREMITIES: No clubbing, no edema, no cyanosis, 2+ pulses and upper and lower extremities. MUSCULOSKELETAL: Muscle strength and tone normal. SPINE: No scoliosis or deformity SKIN: No rashes CENTRAL NERVOUS SYSTEM: No focal deficits, tone is normal in all 4 extremities. PSYCHIATRIC: Alert and oriented -3. Appropriate affect. Intact judgment and insight. - Labs CBC & Chem 7: 06/26/19 07:44 06/27/19 08:56 Labs: Abnormal Lab Results - Last 24 Hours (Table) 06/27/19 Range/Units 08:56 Chloride 108 H (98-107) mmol/L Glucose 104 H (74-99) mg/dL Total Protein 5.8 L (6.3-8.2) g/dL Albumin 3.1 L (3.5-5.0) g/dL Microbiology - Last 24 Hours (Table) 06/26/19 Unknown Gram Stain - Preliminary Sputum Sputum Culture - Preliminary Susie albicans 06/26/19 Unknown Acid Fast Bacilli Smear - Final Sputum Acid Fast Bacilli Culture - Preliminary 06/26/19 Unknown Fungal Culture - Preliminary Sputum 06/25/19 09:24 Blood Culture - Preliminary Blood No Growth after 24 hours Assessment and Plan Assessment: #1. Bilateral lung pneumonia in immunocompromised host with history of HIV/AIDS, rule out PCP pneumonia given patient's history of PCP pneumonia, rule out fungal, bacterial, mycobacterial infection #2. Dyspnea, fever, chest pain, phlegm production related to the above #3. History of HIV AIDS, with most recent CD4 count of 1 and a viral load of 2.4 million, apparently failed multiple treatment regimes #4. History of PCP pneumonia in 2015 diagnosed with bronchoscopic lavage #5. History of COPD, not normally on oxygen #6. Extensive history of smoking, currently in remission #7. 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 History of ADD/ADHD #9. History of CMV, and shingles infection #10. Chronic constipation Plan: The patient was seen and evaluated by Dr. Camarillo. He is improved today as compared to yesterday. First AFB culture negative. Continue to await further sputum results. Influenza screen was negative. Continued on clindamycin and primaquine. Remains on bronchodilators and prednisone. We'll continue with AFB precautions for now. Infectious disease is on the case. We will continue to follow and make further recommendations based on his clinical status. I, the cosigning physician, performed a history & physical examination of the patient. Lungs sounds bilateral scattered rhonchi.. Maintaining good O2 saturations in the 90s on room air. I discussed the assessment and plan of care with my nurse practitioner, Neelima Contreras. I attest to the above note as dictated by her.
[2019-06-27 13:09] VITALS: BMI 16.0
--- NOTE | 2019-06-27 15:30 | P.PN ---
Subjective Patient given a shot is up breath CAT scan of the chest showed nodular infiltrates patient is being treated for PCP pneumonia, patient may need bronc hial lavage and may need to consider Mycobacterium avium complex because of which I'm consulting pulmonology. Patient is feeling bit better today, patient was started on the Premarin and clindamycin for possible pneumocystis generally daily pneumonia and patient is also started on prednisone for inflammation secondary to pneumocystis 0 achy possibility of COPD exacerbation is low although patient has very minimal wheeze on exam good air entry into bilateral lung valdez, CD4 count is pending patient is not on antiretroviral therapy at this time, patient is not on oxygen today 06/27/2019 Patient is feeling much better now compared to day of admission. Still don't have her CD4 count or viral load at this time. Patient was evaluated by pulmonology patient has significant improvement with treatment for PCP pneumonia patient is in isolation until we get to 2 AFB smears. Patient had history of Pneumocystis carinii pneumonia in the past Constitutional: Denied any fatigue denied any fever. Cardio vascular: denied any chest pain, palpitations Gastrointestinal denied any nausea vomiting Pulmonary: As mentioned above Neurologic denied any new focal deficits All inpatient medications were reviewed and appropriate changes in these medications as dictated in the interval history and assessment and plan. Objective - Vital Signs Vital signs: Vital Signs Temp 98.6 F 06/27/19 15:00 Pulse 78 06/27/19 15:00 Resp 16 06/27/19 15:00 BP 100/51 06/27/19 15:00 Pulse Ox 97 06/27/19 15:00 Intake & Output 06/26/19 06/27/19 06/27/19 18:59 06:59 18:59 Intake Total 700 Output Total 1000 Balance 700 -1000 Weight 52.163 kg 52.163 kg Intake: Oral 700 Output: Urine 1000 Other: Voiding Method Urinal Urinal Urinal # Voids 3 - Exam PHYSICAL EXAMINATION: GENERAL: The patient is alert and oriented x3, not in any acute distress. Thin built cachectic male HEENT: Pupils are round and equally reacting to light. EOMI. No scleral icterus. No conjunctival pallor. Normocephalic, atraumatic. No pharyngeal erythema. No thyromegaly. CARDIOVASCULAR: S1 and S2 present. No murmurs, rubs, or gallops. PULMONARY: Chest is clear to auscultation, no wheezing or crackles. ABDOMEN: Soft, nontender, nondistended, normoactive bowel sounds. No palpable organomegaly. MUSCULOSKELETAL: No joint swelling or deformity. EXTREMITIES: No cyanosis, clubbing, or pedal edema. NEUROLOGICAL: Gross neurological examination did not reveal any focal deficits. SKIN: No rashes. - Labs CBC & Chem 7: 06/26/19 07:44 06/27/19 08:56 Labs: Abnormal Lab Results - Last 24 Hours (Table) 06/27/19 Range/Units 08:56 Chloride 108 H (98-107) mmol/L Glucose 104 H (74-99) mg/dL Total Protein 5.8 L (6.3-8.2) g/dL Albumin 3.1 L (3.5-5.0) g/dL Microbiology - Last 24 Hours (Table) 06/26/19 Unknown Gram Stain - Preliminary Sputum Sputum Culture - Preliminary Susie albicans 06/26/19 Unknown Acid Fast Bacilli Smear - Final Sputum Acid Fast Bacilli Culture - Preliminary 06/26/19 Unknown Fungal Culture - Preliminary Sputum 06/25/19 09:24 Blood Culture - Preliminary Blood No Growth after 24 hours Assessment and Plan Plan: -Shortness of breath: Probably secondary to pneumocystis jiroveci pneumonia that may be a competent of mild COPD exacerbation patient will be continued on systemic steroids clindamycin and Primaquine and and CD4 count is pending patient is ALLERGIC to Bactrim. CT angios the chest did not show any pulmonary embolism did show some nodular infiltrate consistent with atypical pneumonia pulmonology was consulted up was sent in isolation until the Mycobacterium tuberculosis is ruled out with to have the smears -Fever source is probably pneumocystis Carni pneumonia -Hyponatremia hypovolemic hyponatremia patient was also tachycardic and admission, these improved with IV fluids -HIV appears to be highly noncompliant with medications continue on flucanazole patient is apparently ALLERGIC to Bactrim. I awaiting CD4 count. -[id number] protein calorie malnutrition from HIV and probably noncompliant with medications. -Constipation continue as needed lactulose -DVT prophylaxis obtain his heparin
--- NOTE | 2019-06-27 22:43 | PN ---
PROGRESS NOTE DATE OF SERVICE: 06/27/2019 REASON FOR FOLLOWUP: 1. Pneumonia; possible PCP. 2. HIV. INTERVAL HISTORY: The patient is currently afebrile. He is breathing more comfortably. The cough has decreased in intensity. Still has productive sputum. No hemoptysis. No chest pain. No nausea, no vomiting. No abdominal pain or diarrhea. PHYSICAL EXAMINATION: Blood pressure is 100/51 with a pulse of 78, temperature of 98.6. He is 97% on room air. General description is a middle-aged male lying in bed in no distress. RESPIRATORY SYSTEM: Unlabored breathing with decreased intensity of breath sounds. No wheeze. HEART: S1, S2. Regular rate and rhythm. ABDOMEN: Soft. No tenderness. LABS: BUN of 16, creatinine 0.71. Hemoglobin 9.6, white count 4.1. Sputum cultures currently pending. DIAGNOSTIC IMPRESSION AND PLAN: 1. Patient with pneumonia in this patient with HIV and likely PCP pneumonia. AFB stain has been requested. Patient to continue on clindamycin and primaquine, prednisone because of his BACTRIM ALLERGY. 2. HIV. Awaiting genotype this is a patient with pneumonia to determine any available retroviral therapy for him. MMODL / IJN: [id number] /
[2019-06-28] MEDS: CLINDAMYCIN 900 MG in DEXTROSE 5% IN WATER 50 ML IVPB SCH ×4 (02:11→13:31)
[2019-06-28] MEDS: SODIUM CHLORIDE 0.9% 1,000 ML IV SCH ×2 (03:29→13:31)
[2019-06-28 05:57] VITALS: BP 112/66; PULSE 60; RESP 18; TEMP 97.2
[2019-06-28] MEDS: SYMBICORT 160-4.5 MCG INHALER INHALATION SCH (07:29)
[2019-06-28] MEDS: PRIMAQUINE PO SCH (08:55)
[2019-06-28] MEDS: FAMOTIDINE 20 MG TAB PO SCH (08:55)
[2019-06-28] MEDS: FLUCONAZOLE 100 MG TAB PO SCH (08:55)
[2019-06-28] MEDS: predniSONE 20 MG TAB PO SCH (08:55)
[2019-06-28] MEDS: HEPARIN SODIUM,PORCINE 5,000 UNIT/ML 1 ML VIAL SQ SCH (08:56)
[2019-06-28] MEDS ORDERED: BISACODYL 10 MG SUPP RECTAL STA (11:08)
--- NOTE | 2019-06-28 11:59 | P.PN ---
Subjective Progress Note Date: 06/28/19 On 06/28/2019 the patient is feeling better. The patient is less short of breath compared to yesterday. No fever. No chills. No hemoptysis. No pleurisy. Cough and congestion is improved. First set of a became back negative. Still awaiting the PCP stain. Vital cultures came back negative. Influenza screen was negative. He is still on a PCP antibiotic coverage pending further results. He also is on Diflucan. Oropharyngeal candidiasis is improved considerably at this point in time. Objective - Vital Signs Vital signs: Vital Signs Temp 97.2 F L 06/28/19 05:57 Pulse 60 06/28/19 05:57 Resp 18 06/28/19 05:57 BP 112/66 06/28/19 05:57 Pulse Ox 98 06/28/19 07:19 Intake & Output 06/27/19 06/28/19 06/28/19 18:59 06:59 18:59 Output Total 1000 700 Balance -1000 -700 Weight 52.163 kg Output: Urine 1000 700 Other: Voiding Method Urinal Urinal - Exam GENERAL EXAM: Alert, pleasant, cachectic-looking 49-year-old male patient on room air, with a pulse ox of 99% comfortable in no apparent distress. HEAD: Normocephalic/atraumatic. EYES: Normal reaction of pupils, equal size. Conjunctiva pink, sclera white. NOSE: Clear with pink turbinates. THROAT: No erythema or exudates. NECK: No masses, no JVD, no thyroid enlargement, no adenopathy. CHEST: No chest wall deformity. Symmetrical expansion. LUNGS: Diminished air entry with bilateral scattered rhonchi, diminished. CVS: Regular rate and rhythm, normal S1 and S2, no gallops, no murmurs, no rubs ABDOMEN: Soft, nontender. No hepatosplenomegaly, normal bowel sounds, no guarding or rigidity. EXTREMITIES: No clubbing, no edema, no cyanosis, 2+ pulses and upper and lower extremities. MUSCULOSKELETAL: Muscle strength and tone normal. SPINE: No scoliosis or deformity SKIN: No rashes CENTRAL NERVOUS SYSTEM: No focal deficits, tone is normal in all 4 extremities. PSYCHIATRIC: Alert and oriented -3. Appropriate affect. Intact judgment and insight. - Labs CBC & Chem 7: 06/26/19 07:44 06/27/19 08:56 Labs: Microbiology - Last 24 Hours (Table) 06/26/19 Unknown Gram Stain - Final Sputum Sputum Culture - Final Susie albicans 06/25/19 09:24 Blood Culture - Preliminary Blood No Growth after 48 hours Assessment and Plan Plan: #1. Bilateral lung pneumonia in immunocompromised host with history of HIV/AIDS, rule out PCP pneumonia given patient's history of PCP pneumonia, rule out fungal, bacterial, mycobacterial infection #2. Dyspnea, fever, chest pain, phlegm production related to the above #3. History of HIV AIDS, with most recent CD4 count of 1 and a viral load of 2.4 million, apparently failed multiple treatment regimes #4. History of PCP pneumonia in 2015 diagnosed with bronchoscopic lavage #5. History of COPD, not normally on oxygen #6. Extensive history of smoking, currently in remission #7. 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 History of ADD/ADHD #9. History of CMV, and shingles infection #10. Chronic constipation LOLA Clinically the patient is improving. The patient remains on antibiotic coverage including PCP coverage. The AFB stains came back negative. Vital cultures came back negative. Routine sputum Gram stain and cultures still pending. PCP stain is pending. Clinically improved. Continue Diflucan for oropharyngeal candidiasis is also improving. We'll continue to follow. Management of AIDS per infectious disease.
--- NOTE | 2019-06-28 12:59 | PN ---
PROGRESS NOTE DATE OF SERVICE: 06/28/2019 REASON FOR FOLLOWUP: 1. Pneumonia likely PCP. 2. HIV. INTERVAL HISTORY: The patient is currently afebrile. Patient is breathing comfortably. The patient denies having any chest pain or shortness of breath. Very minimal cough, no sputum. No nausea, no vomiting. No abdominal pain, no diarrhea. PHYSICAL EXAMINATION: Blood pressure 112/66, pulse 50, temperature 97.6, he is 98% on room air. General description is a middle-aged male, lying in bed in no distress. RESPIRATORY SYSTEM: Unlabored breathing with decreased breath sounds, no wheeze. HEART: S1, S2. Regular rate and rhythm. ABDOMEN: Soft. No tenderness. LABS: BUN of 15, creatinine 0.71, sputum, PCP stain is currently pending. DIAGNOSTIC IMPRESSION AND PLAN: 1. Patient admitted to the hospital with pneumonia in this patient with HIV, aids with a CD4 count of 1 likely PCP pneumonia. The patient did have BACTRIM allergy. The patient is currently responding on clindamycin and Levaquin. Continue along with PENICILLIN. 2. HIV. Waiting for his genotype to become completed. 3. Dermatitis, anterior therapy. Continue supportive care. MMODL / IJN: [id number] /
--- NOTE | 2019-06-28 14:24 | P.DS ---
Providers Date of admission: 06/25/19 12:35 Attending physician: Star Lawrence Consults: 06/25/19 12:38 Consult Physician Routine Consulting Provider: Diana Chery Consult Reason/Comments: HIV Do you want consulting provider notified?: Already Contacted 06/26/19 13:01 Consult Physician Routine Consulting Provider: Handy Camarillo Consult Reason/Comments: COPD, bronchitis Do you want consulting provider notified?: Yes Primary care physician: [facility] Course: Patient given a shot is up breath CAT scan of the chest showed nodular infiltrates patient is being treated for PCP pneumonia, patient may need bronchial lavage and may need to consider Mycobacterium avium complex because of which I'm consulting pulmonology. Patient is feeling bit better today, patient was started on the Premarin and clindamycin for possible pneumocystis generally daily pneumonia and patient is also started on prednisone for inflammation secondary to pneumocystis 0 achy possibility of COPD exacerbation is low although patient has very minimal wheeze on exam good air entry into bilateral lung valdez, CD4 count is pending patient is not on antiretroviral therapy at this time, patient is not on oxygen today 06/27/2019 Patient is feeling much better now compared to day of admission. Still don't have her CD4 count or viral load at this time. Patient was evaluated by pulmonology patient has significant improvement with treatment for PCP pneumonia patient is in isolation until we get to 2 AFB smears. Patient had history of Pneumocystis carinii pneumonia in the past 06/28/2019 Patient is doing clinically well his wheezing improved. Patient probably has Pneumocystis carinii pneumonia. Patient antibiotics as per infectious disease patient probably will be discharged on Primaquine and clindamycin. We're waiting for the second the AFB smear if that's negative patient will be discharged today. Antiretroviral therapy will decision will be made as an outpatient. All the viral PCR testing is negative HIV viral load and CD4 count is still pending patient clinically looks much better. Patient will be discharged on weaning doses of steroids which is helpful for both PCP pneumonia as well as a COPD. PHYSICAL EXAMINATION: GENERAL: The patient is alert and oriented x3, not in any acute distress. Thin built HEENT: Pupils are round and equally reacting to light. EOMI. No scleral icterus. No conjunctival pallor. Normocephalic, atraumatic. No pharyngeal erythema. No thyromegaly. CARDIOVASCULAR: S1 and S2 present. No murmurs, rubs, or gallops. PULMONARY: Chest is clear to auscultation, no wheezing or crackles. ABDOMEN: Soft, nontender, nondistended, normoactive bowel sounds. No palpable organomegaly. MUSCULOSKELETAL: No joint swelling or deformity. EXTREMITIES: No cyanosis, clubbing, or pedal edema. NEUROLOGICAL: Gross neurological examination did not reveal any focal deficits. SKIN: No rashes. Assessment and Plan Plan: -Shortness of breath: Probably secondary to pneumocystis jiroveci pneumonia that may be a competent of mild COPD exacerbation patient will be continued on systemic steroids clindamycin and Primaquine and and CD4 count is pending patient is ALLERGIC to Bactrim. AFB smear for Mycobacterium is negative we are waiting for for the second smear and if it's negative patient will be discharged today -Fever source is probably pneumocystis Carni pneumonia fever resolved -Hyponatremia hypovolemic improved now -HIV appears to be highly noncompliant with medications continue on flucanazole patient is apparently ALLERGIC to Bactrim. I awaiting CD4 count. -Xkef-fr-szhdzsyl protein calorie malnutrition from HIV and probably noncompliant with medications. Plan - Discharge Summary Discharge Rx Participant: No New Discharge Prescriptions: New Famotidine [Pepcid] 20 mg PO BID #30 tab predniSONE 10 mg PO DAILY #30 tab Budesonide-Formot 160-4.5 Mcg [Symbicort 160-4.5 Mcg Inhaler] 2 puff INHALATION RT-BID #1 inhaler Continue Acetaminophen [Tylenol Extra Strength] 1,000 mg PO BID PRN PRN Reason: Pain Ipratropium-Albuterol Nebulize [Duoneb 0.5 mg-3 mg/3 ml Soln] 3 ml INHALATION RT-BID PRN PRN Reason: Shortness Of Breath Fluconazole [Diflucan] 200 mg PO DAILY Buprenorphine HCl/Naloxone HCl [Suboxone 8 mg-2 mg Sl Film] 0.5 - 1 film SUBLINGUAL TID PRN PRN Reason: CRAVING Discharge Medication List Acetaminophen [Tylenol Extra Strength] 1,000 mg PO BID PRN 07/11/18 [History] Ipratropium-Albuterol Nebulize [Duoneb 0.5 mg-3 mg/3 ml Soln] 3 ml INHALATION RT-BID PRN 07/11/18 [History] Buprenorphine HCl/Naloxone HCl [Suboxone 8 mg-2 mg Sl Film] 0.5 - 1 film SUBLINGUAL TID PRN 06/25/19 [History] Fluconazole [Diflucan] 200 mg PO DAILY 06/25/19 [History] Budesonide-Formot 160-4.5 Mcg [Symbicort 160-4.5 Mcg Inhaler] 2 puff INHALATION RT-BID #1 inhaler 06/28/19 [Rx] Famotidine [Pepcid] 20 mg PO BID #30 tab 06/28/19 [Rx] predniSONE 10 mg PO DAILY #30 tab 06/28/19 [Rx] Follow up Appointment(s)/Referral(s): Omkar Delatorre MD [REFERRING] - 1 Week Diana Chery MD [STAFF PHYSICIAN] - 1 Week Handy Camarillo MD [STAFF PHYSICIAN] - 1 Week Discharge Disposition: HOME SELF-CARE
== END 2019-06-28 16:57 | disposition home or self-care (01) | DRG 974 ==
LOC: EC 08:39 → 6NMEDSUR 12:35
PROVIDERS: ADMIT Internal Medicine; ATTEND Internal Medicine
DX: B20 Human immunodeficiency virus [HIV] disease (principal); J96.01 Acute respiratory failure with hypoxia; B37.0 Candidal stomatitis; B59 Pneumocystosis; R64 Cachexia; I69.354 Hemiplegia and hemiparesis following cerebral infarction affecting left non-dominant side; J44.1 Chronic obstructive pulmonary disease with (acute) exacerbation; E44.1 Mild protein-calorie malnutrition; E87.1 Hypo-osmolality and hyponatremia; Z68.1 Body mass index [BMI] 19.9 or less, adult; Z23 Encounter for immunization; E86.1 Hypovolemia; R40.2363 Coma scale, best motor response, obeys commands, at hospital admission; R40.2143 Coma scale, eyes open, spontaneous, at hospital admission; R40.2253 Coma scale, best verbal response, oriented, at hospital admission; T37.5X6A Underdosing of antiviral drugs, initial encounter; Z91.128 Patient's intentional underdosing of medication regimen for other reason; Y63.6 Underdosing and nonadministration of necessary drug, medicament or biological substance; K59.09 Other constipation; L30.9 Dermatitis, unspecified; F90.9 Attention-deficit hyperactivity disorder, unspecified type; Z79.899 Other long term (current) drug therapy; Z87.01 Personal history of pneumonia (recurrent); Z87.820 Personal history of traumatic brain injury; Z86.19 Personal history of other infectious and parasitic diseases; Z87.891 Personal history of nicotine dependence; Z86.69 Personal history of other diseases of the nervous system and sense organs; Z98.41 Cataract extraction status, right eye; Z88.5 Allergy status to narcotic agent; Z88.2 Allergy status to sulfonamides; Z88.8 Allergy status to other drugs, medicaments and biological substances; Z82.49 Family history of ischemic heart disease and other diseases of the circulatory system
CPT/HCPCS: 36415; 71046; 71275; 80048; 80053; 81003; 83605; 83735; 84484; 85025; 85027; 85610; 85730; 87040; 87070; 87102; 87116; 87205; 87206; 87252; 87299; 87496; 87498; 87502; 87529; 87634; 87798; 87901; 93005; 94640; 94760; 96361; 96365; 96366; 96367; 96372; 99285

== ENCOUNTER 2019-07-11 10:24 | Inpatient (IN) | payer MEDICARE, OTHER ==
--- NOTE | 2019-07-11 11:04 | XR ---
EXAMINATION TYPE: XR chest 2V DATE OF EXAM: 07/11/2019 COMPARISON: 06/25/2019 TECHNIQUE: PA and lateral views submitted. HISTORY: Shortness of breath FINDINGS: The lungs are clear and there is no pneumothorax, pleural effusion, or focal pneumonia. Hyperinflat ion suggests COPD. No overt failure or pneumothorax. Bilateral nipple shadows are incidentally noted. Hypertrophic and degenerative change of the spine. IMPRESSION: 1. No acute process. Correlate for COPD.
[2019-07-11 11:25] LABS: Anisocytosis Slight; Basophils % (A) 1 %; Eosinophils # (A) 0.1 k/uL (0-0.7); Eosinophils % (A) 4 %; HCT 31.9 % (39.0-53.0); HGB 10.9 gm/dL (13.0-17.5); Lymphocytes # (A) 0.2 k/uL (1.0-4.8); Lymphocytes % (A) 12 %; MCH 30.1 pg (25.0-35.0); MCHC 34.1 g/dL (31.0-37.0); MCV 88.5 fL (80.0-100.0); Mean Platelet Volume 7.6; Monocytes # (A) 0.1 k/uL (0-1.0); Monocytes % (A) 7 %; Neutrophils # (A) 1.2 k/uL (1.3-7.7); Neutrophils % (A) 72 %; Platelet Count 149 k/uL (150-450); RBC 3.61 m/uL (4.30-5.90); RDW 16.2 % (11.5-15.5); WBC 1.7 k/uL (3.8-10.6)
[2019-07-11] MEDS ORDERED: DEXAMETHASONE SOD PHOSPHATE 10 MG/ML 1 ML VIAL IV STA (11:25)
[2019-07-11] MEDS ORDERED: IPRATROPIUM-ALBUTEROL 3 ML NEB INHALATION STA (11:25)
[2019-07-11 11:26] LABS: African American GFR (CKD) >90 (>60 ml/min/1.73 sqM); Anion Gap 5 mmol/L; Blood Urea Nitrogen 22 mg/dL (9-20); Calcium 8.6 mg/dL (8.4-10.2); Carbon Dioxide 24 mmol/L (22-30); Chloride 111 mmol/L (98-107); Glucose 84 mg/dL (74-99); Non-African American GFR(CKD) >90 (>60 ml/min/1.73 sqM); Potassium 4.5 mmol/L (3.5-5.1); Sodium 140 mmol/L (137-145)
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
[2019-07-11] MEDS ORDERED: DEXAMETHASONE ORAL 4 MG/ML VIAL PO ONE (11:35)
[2019-07-11] MEDS ORDERED: IPRATROPIUM-ALBUTEROL 3 ML NEB INHALATION PRN (11:53)
[2019-07-11] MEDS: SYMBICORT 160-4.5 MCG INHALER INHALATION SCH (20:05)
[2019-07-11] MEDS: FAMOTIDINE 20 MG TAB PO SCH (20:53)
[2019-07-11] MEDS: ACETAMINOPHEN TAB 500 MG TAB PO PRN (20:54)
[2019-07-11] MEDS: DOXYCYCLINE 100 MG CAP PO SCH (20:54)
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
[2019-07-12] MEDS: HEPARIN SODIUM,PORCINE 5,000 UNIT/ML 1 ML VIAL SQ SCH ×4 (00:44→15:44)
[2019-07-12 04:41] LABS: ABG Base Excess -6.4 mmol/L; ABG HCO3 18 mmol/L (21-25); ABG Oxygen Saturation 97.8 % (94-97); ABG PCO2 29 mmHg (35-45); ABG PH 7.41 (7.35-7.45); ABG PO2 98 mmHg (83-108); ABG TCO2 19 mmol/L (19-24); Allen Test Performed? Yes
[2019-07-12] MEDS: SYMBICORT 160-4.5 MCG INHALER INHALATION SCH (08:19)
--- NOTE | 2019-07-12 08:27 | CT ---
EXAMINATION TYPE: CT chest wo con DATE OF EXAM: 07/12/2019 COMPARISON: 06/25/2019 HISTORY: Pneumonia CT DLP: 151.[address] of the chest was performed with lung and mediastinal window settings submitted. The la ck of contrast limits evaluation of the vascular, mediastinal and parenchymal structures including th e upper abdomen. LUNGS: Previously noted tree-in-bud opacities throughout the mid and lower lung valdez have resolved. There are groundglass centrilobular areas of nodularity right upper lobe measuring 6.6 mm and 5.2 mm respectively. Additional nodular density left upper lobe measures 5.4 mm image 29. Again noted are a moderate centrilobular emphysematous changes. No focal consolidation or volume loss. No pleural effu brock identified. MEDIASTINUM/BRENDAN: Thoracic aorta is of normal caliber with limited evaluation given lack of contrast . The heart is not enlarged. No evidence for mediastinal mass. No lymph nodes greater than 1cm. UPPER ABDOMEN: No significant abnormality is seen. OTHER: No significant other abnormality. IMPRESSION: 1. Previously noted tree-in-bud opacities throughout the mid and lower lung valdez have resolved. 2. Areas of nonspecific nodularity. Six-month follow-up CT is advised.
[2019-07-12] MEDS: FLUCONAZOLE 100 MG TAB PO SCH (08:36)
[2019-07-12] MEDS: FAMOTIDINE 20 MG TAB PO SCH ×2 (08:37→21:34)
[2019-07-12] MEDS: DOXYCYCLINE 100 MG CAP PO SCH ×2 (08:37→21:35)
[2019-07-12] MEDS: ACETAMINOPHEN TAB 500 MG TAB PO PRN (08:44)
[2019-07-12 08:47] LABS: Anisocytosis Slight; Basophils # (A) 0.1 k/uL (0-0.2); Basophils % (A) 2 %; Eosinophils % (A) 0 %; HCT 32.2 % (39.0-53.0); HGB 10.3 gm/dL (13.0-17.5); Lymphocytes # (A) 0.2 k/uL (1.0-4.8); Lymphocytes % (A) 6 %; MCH 28.9 pg (25.0-35.0); MCHC 31.9 g/dL (31.0-37.0); MCV 90.6 fL (80.0-100.0); Mean Platelet Volume 7.8; Monocytes # (A) 0.2 k/uL (0-1.0); Monocytes % (A) 7 %; Neutrophils # (A) 2.7 k/uL (1.3-7.7); Neutrophils % (A) 82 %; Platelet Count 157 k/uL (150-450); RBC 3.55 m/uL (4.30-5.90); RDW 16.4 % (11.5-15.5); WBC 3.3 k/uL (3.8-10.6)
[2019-07-12] MEDS ORDERED: predniSONE 20 MG TAB PO SCH (09:00)
[2019-07-12 09:06] LABS: ALT 32 U/L (4-49); AST 40 U/L (17-59); African American GFR (CKD) >90 (>60 ml/min/1.73 sqM); Albumin 3.7 g/dL (3.5-5.0); Alkaline Phosphatase 82 U/L (38-126); Anion Gap 8 mmol/L; Blood Urea Nitrogen 22 mg/dL (9-20); Calcium 9.3 mg/dL (8.4-10.2); Carbon Dioxide 22 mmol/L (22-30); Chloride 109 mmol/L (98-107); Glucose 76 mg/dL (74-99); Magnesium 1.8 mg/dL (1.6-2.3); Non-African American GFR(CKD) >90 (>60 ml/min/1.73 sqM); Potassium 5.2 mmol/L (3.5-5.1); Sodium 139 mmol/L (137-145); Total Bilirubin 0.3 mg/dL (0.2-1.3); Total Protein 6.4 g/dL (6.3-8.2)
[2019-07-12 11:55] VITALS: BMI 17.2
[2019-07-12] MEDS ORDERED: IPRATROPIUM-ALBUTEROL 3 ML NEB INHALATION PRN (12:24)
--- NOTE | 2019-07-12 13:12 | CONS ---
CONSULTATION PULMONARY/CRITICAL CARE CONSULTATION: DATE OF CONSULTATION: July 12, 2019. REASON FOR CONSULTATION: Shortness of breath This is a 49-year-old male with a history of HIV disease/AIDS. The patient comes into the emergency room, brought in by EMS because of shortness of breath. The patient apparently also complaining of tightness in the chest, coughing, wheezing, and phlegm production. The patient was recently in the hospital. At that time, he had an abnormal CAT scan showing bilateral basilar tree-in-bud appearance in the CT scan consistent with a possible infection. He was discharged apparently on antibiotic and the CAT scan done on this admission shows significant vast improvement. He denies any nausea or vomiting. He denies any genitourinary complaints. There is no fever or chills. The patient apparently does not have a family doctor. He apparently sees Dr. Sneed for his HIV treatment. He continues to smoke cigarettes. His chest x-ray on this admission was consistent with primarily COPD. HOME MEDICATIONS: His home medications include Tylenol, DuoNeb, Suboxone, Diflucan, clindamycin, which is what he was discharged with the last time he was here in the hospital, Pepcid, Primaquine, and prednisone. ALLERGIES: Allergies include LAMIVUDINE, BACTRIM, TRIMETHOPRIM, and ZIDOVUDINE. MEDICAL HISTORY: Medical history includes COPD from chronic tobacco use, CVA, GI bleed, Pneumocystis carinii pneumonia, diagnosed many years back by Dr. Ferguson, HIV, CMV, status post head trauma, chronic constipation, and seizure disorder. SURGICAL HISTORY: Surgical history includes a previous bronchoscopy where the Pneumocystis diagnosis was made, liver biopsy, and right cataract surgery. SOCIAL HISTORY: Positive for ongoing tobacco use. He smokes at least a pack a day and has been smoking for 30+ years. Denies alcohol use or illicit drug use. FAMILY HISTORY: Apparently positive for mother with CAD and stents. REVIEW OF SYSTEMS: CONSTITUTIONAL: Negative. NEUROLOGIC: Negative. HEENT: Negative. CARDIOVASCULAR: Negative. PULMONARY: Shortness of breath, chest tightness, wheezing, cough. GI: Negative. : Negative. RHEUMATOLOGIC: Negative. IMMUNOLOGIC: Negative. ENDOCRINOLOGIC: Negative. DERMATOLOGIC: Negative. PHYSICAL EXAMINATION: VITAL SIGNS: Current vital signs are reviewed. His temperature is 98, heart rate 76, respiratory rate 18, blood pressure 115/76, mean 89 and room air saturation 99%. GENERAL: He appears in no acute distress. HEENT: Examination is grossly unremarkable. No supplemental oxygen noted. NECK: Supple. Full range of motion. No adenopathy. Neck veins are flat. CARDIOVASCULAR: Examination reveals regular rhythm and rate. S1, S2 normal. No S3, S4, or murmur. LUNGS: Reveal coarse expiratory rhonchi. Breath sounds are severely diminished throughout. There are expiratory wheezes. Breath sounds equal bilaterally. There is prolongation on forced maneuver. No crackles. ABDOMEN: Soft. Bowel sounds are heard. EXTREMITIES: Are intact. No cyanosis, clubbing, or edema. SKIN: Without rash. NEUROLOGIC: Examination is brief but nonfocal. Chest x-ray from the shows changes of just COPD. A CT scan done today, shows significant improvement in the tree-in-bud opacities in both lower lung valdez. The CT scan is certainly much improved. No other abnormalities are noted. LAB DATA: Lab data is reviewed. White count 3.3, hemoglobin 10.3, hematocrit 32.2, platelet count 157,000. Blood gas showed a pO2 of 98, pCO2 of 29, and a pH of 7.41. The blood gases are consistent with normoxemia and mixed acid-base disturbance including a respiratory alkalosis and metabolic acidosis. Sodium 139, potassium 5.2, chloride 109, CO2 of 22. Anion gap is 8. BUN and creatinine were 22 and 0.69. The rest of the labs look okay. A D-dimer that was recently ordered by tx was 0.55, which is in the normal range. Microbiologic studies are negative. MEDICATIONS: Medications are reviewed. Currently he is on Tylenol, Symbicort, doxycycline, famotidine, Diflucan, subcu heparin, updrafts, and prednisone. ASSESSMENT: 1. Shortness of breath, related to underlying chronic obstructive pulmonary disease exacerbation. 2. History of HIV/AIDS. 3. Previous history of Pneumocystis carinii pneumonia, 2015. 4. Ongoing tobacco use with nicotine addiction. 5. History of cerebrovascular accident. 6. History of gastrointestinal bleed. 7. History of previous head trauma. 8. History of constipation. 9. History of seizure disorder. PLAN: The patient's medications will be standard medications for COPD exacerbation. Will discontinue the prednisone in favor of Solu-Medrol. Will discontinue the Symbicort in favor of Pulmicort and formoterol. Continue updrafts. Continue oral antibiotic. We will continue to follow. He is counseled about the importance of smoking cessation. If he craves tobacco, nicotine patch should be ordered. MMODL / IJN: [id number] /
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
[2019-07-12] MEDS: IPRATROPIUM-ALBUTEROL 3 ML NEB INHALATION SCH ×2 (15:53→19:58)
--- NOTE | 2019-07-12 17:09 | PN ---
PROGRESS NOTE DATE OF SERVICE: 07/12/2019. REASON FOR FOLLOWUP: 1. HIV. 2. Question of pneumonia. INTERVAL HISTORY: The patient is currently afebrile. He is breathing slightly comfortably. He did have a cough which is dry in nature. No chest pain. No nausea, vomiting, abdominal pain or diarrhea. PHYSICAL EXAMINATION: Blood pressure 97/73 with a pulse of 100, temperature 98.1. He is 99% on room air. General description is a middle-aged male lying in bed in no distress. RESPIRATORY SYSTEM: Unlabored breathing. Clear to auscultation anteriorly. HEART: S1, S2. Regular rate and rhythm. ABDOMEN: Soft. No tenderness. LABS/IMAGING: White count 3.3, creatinine 0.69. CT chest did show resolution of tree-in-bud opacities that were noted on the previous CT. DIAGNOSTIC IMPRESSION AND PLAN: 1. Patient admitted to hospital with difficulty breathing, more likely secondary to chronic obstructive pulmonary disease in the patient with tracheobronchitis. Clinical suspicion low for underlying pneumonia. He did have a CT of the chest which did not show any consolidation and previous abnormality has resolved. Remains on adequate treatment for underlying PCP pneumonia. 2. Patient with HIV, currently not on any retroviral. Recommending on discharge. His questions and concerns were answered. MMODL / IJN: [id number] /
[2019-07-12] MEDS: methylPREDNISolone SOD SUCCI 125 MG/2 ML VIAL IV SCH (17:28)
[2019-07-12 19:58] VITALS: RESP 18
[2019-07-12] MEDS: FORMOTEROL FUMARATE 20 MCG/2 ML NEBU INHALATION SCH (19:58)
[2019-07-12] MEDS: BUDESONIDE 1 MG/2 ML NEBU INHALATION SCH (19:58)
[2019-07-12] MEDS ORDERED: BISACODYL 10 MG SUPP RECTAL SCH (21:00)
[2019-07-13] MEDS: HEPARIN SODIUM,PORCINE 5,000 UNIT/ML 1 ML VIAL SQ SCH ×2 (00:04→08:35)
[2019-07-13] MEDS: methylPREDNISolone SOD SUCCI 125 MG/2 ML VIAL IV SCH ×3 (00:13→12:26)
[2019-07-13 06:22] VITALS: BP 117/77; PULSE 73; TEMP 97.4
[2019-07-13] MEDS: IPRATROPIUM-ALBUTEROL 3 ML NEB INHALATION SCH ×3 (07:58→15:24)
[2019-07-13] MEDS: FORMOTEROL FUMARATE 20 MCG/2 ML NEBU INHALATION SCH (07:58)
[2019-07-13] MEDS: BUDESONIDE 1 MG/2 ML NEBU INHALATION SCH (07:58)
[2019-07-13] MEDS: FLUCONAZOLE 100 MG TAB PO SCH (08:35)
[2019-07-13] MEDS: DOXYCYCLINE 100 MG CAP PO SCH (08:35)
[2019-07-13] MEDS: FAMOTIDINE 20 MG TAB PO SCH (08:35)
--- NOTE | 2019-07-13 13:56 | PN ---
PROGRESS NOTE DATE OF SERVICE: 07/13/2019 REASON FOR FOLLOWUP: HIV. INTERVAL HISTORY: The patient is currently afebrile. The patient has been breathing more comfortably. Denies having any chest pain. Occasional cough. No nausea, no vomiting, no abdominal pain, no diarrhea. PHYSICAL EXAMINATION: Blood pressure 117/77 with a pulse of 73, temperature 97.4, he is 98% on room air. General description is a middle-aged male, up in the bed in no distress. RESPIRATORY SYSTEM: Unlabored breathing, decreased intensity of breath sounds, no wheeze. HEART: S1, S2. Regular rate and rhythm. ABDOMEN: Soft, no tenderness. LABS: No new labs have been obtained today. DIAGNOSTIC IMPRESSION AND PLAN: 1. Patient admitted to the hospital with difficulty breathing, more likely COPD in a patient with bronchitis, no evidence of a pneumonia. Clinically improved. Finish therapy with a short course of steroids and bronchodilator per Pulmonary: 2. Patient with HIV, Aids. Patient's prescription for has been sent to the pharmacy with close outpatient followup. MMODL / IJN: [id number] /
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
== END 2019-07-13 16:35 | disposition home or self-care (01) | DRG 191 ==
LOC: EC 10:24 → OBSVTOIN 11:54 → 6NMEDSUR 11:54
PROVIDERS: ADMIT Hospitalist; ATTEND Hospitalist
DX: J44.1 Chronic obstructive pulmonary disease with (acute) exacerbation (principal); B20 Human immunodeficiency virus [HIV] disease; I69.354 Hemiplegia and hemiparesis following cerebral infarction affecting left non-dominant side; F17.210 Nicotine dependence, cigarettes, uncomplicated; T50.996A Underdosing of other drugs, medicaments and biological substances, initial encounter; F90.9 Attention-deficit hyperactivity disorder, unspecified type; G40.909 Epilepsy, unspecified, not intractable, without status epilepticus; K59.09 Other constipation; Z59.0 Homelessness; Z79.51 Long term (current) use of inhaled steroids; Z79.52 Long term (current) use of systemic steroids; Z79.899 Other long term (current) drug therapy; Z87.01 Personal history of pneumonia (recurrent); Z88.1 Allergy status to other antibiotic agents; Z88.5 Allergy status to narcotic agent; Z88.2 Allergy status to sulfonamides; Z88.8 Allergy status to other drugs, medicaments and biological substances; Z98.41 Cataract extraction status, right eye; Z96.1 Presence of intraocular lens; Z87.828 Personal history of other (healed) physical injury and trauma; Z91.128 Patient's intentional underdosing of medication regimen for other reason; Z82.49 Family history of ischemic heart disease and other diseases of the circulatory system
CPT/HCPCS: 36415; 36600; 71046; 71250; 80048; 80053; 82805; 83735; 85025; 85379; 94640; 96374; 99285

== ENCOUNTER 2019-07-24 19:13 | Inpatient (IN) | payer MEDICARE, OTHER ==
[2019-07-24] MEDS ORDERED: methylPREDNISolone SOD SUCCI 125 MG/2 ML VIAL IV STA (19:23)
[2019-07-24] MEDS ORDERED: IPRATROPIUM-ALBUTEROL 3 ML NEB INHALATION STA ×2 (19:23→21:14)
[2019-07-24] MEDS ORDERED: LORazepam 2 MG/ML INJ IV STA (19:23)
[2019-07-24] MEDS ORDERED: SODIUM CHLORIDE 0.9% 1,000 ML IV STA ×4 (19:23→21:15)
[2019-07-24] MEDS ORDERED: SODIUM CHLORIDE 0.9% 500 ML 500 ML IV STA ×2 (19:23→21:15)
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
[2019-07-24] MEDS ORDERED: MORPHINE SULFATE 4 MG/ML SYRINGE IVP STA ×2 (19:24→21:15)
[2019-07-24] MEDS ORDERED: ONDANSETRON 4 MG/2 ML VIAL IVP PRN (19:24)
[2019-07-24] MEDS ORDERED: ONDANSETRON 4 MG/2 ML VIAL IVP STA (19:24)
[2019-07-24] MEDS ORDERED: KETOROLAC 30 MG/ML 1 ML VIAL IVP STA (19:25)
[2019-07-24] MEDS ORDERED: ACETAMINOPHEN TAB 325 MG TAB PO PRN (19:32)
[2019-07-24] MEDS ORDERED: ACETAMINOPHEN TAB 500 MG TAB PO STA (19:32)
[2019-07-24 19:38] LABS: Anisocytosis Slight; Basophils # (A) 0.2 k/uL (0-0.2); Basophils % (A) 2 %; Eosinophils % (A) 0 %; HCT 36.5 % (39.0-53.0); HGB 11.7 gm/dL (13.0-17.5); Lymphocytes # (A) 0.2 k/uL (1.0-4.8); Lymphocytes % (A) 3 %; MCH 28.8 pg (25.0-35.0); MCV 90.2 fL (80.0-100.0); Mean Platelet Volume 7.1; Monocytes # (A) 0.4 k/uL (0-1.0); Monocytes % (A) 4 %; Neutrophils # (A) 8.4 k/uL (1.3-7.7); Neutrophils % (A) 90 %; Platelet Count 192 k/uL (150-450); RBC 4.05 m/uL (4.30-5.90); RDW 16.1 % (11.5-15.5); WBC 9.3 k/uL (3.8-10.6)
--- NOTE | 2019-07-24 19:38 | XR ---
EXAMINATION TYPE: XR chest 1V portable DATE OF EXAM: 07/24/2019 COMPARISON: 07/11/2019 HISTORY: Cough TECHNIQUE: FINDINGS: There is no heart failure. Heart size is normal. Lungs are clear of consolidation. There is small linear density left lung base. There are chest leads. There are no hilar masses. Mediastinum i s normal. IMPRESSION: Minimal subsegmental atelectasis left lung base. Normal heart. There is probably some [employer] CH[employer]ST[employer] D.
[2019-07-24 19:48] LABS: ALT 28 U/L (4-49); AST 33 U/L (17-59); African American GFR (CKD) >90 (>60 ml/min/1.73 sqM); Albumin 4.1 g/dL (3.5-5.0); Alkaline Phosphatase 71 U/L (38-126); Anion Gap 10 mmol/L; Blood Urea Nitrogen 12 mg/dL (9-20); Calcium 8.7 mg/dL (8.4-10.2); Carbon Dioxide 22 mmol/L (22-30); Chloride 106 mmol/L (98-107); Glucose 103 mg/dL (74-99); Magnesium 1.6 mg/dL (1.6-2.3); Non-African American GFR(CKD) >90 (>60 ml/min/1.73 sqM); Potassium 4.2 mmol/L (3.5-5.1); Sodium 138 mmol/L (137-145); Total Bilirubin 0.4 mg/dL (0.2-1.3); Total Protein 6.8 g/dL (6.3-8.2)
[2019-07-24 19:52] LABS: INR 0.9 (<1.2); Partial Thromboplastin Time 25.3 sec (22.0-30.0); Prothrombin Time 9.4 sec (9.0-12.0)
[2019-07-24] MEDS: SODIUM CHLORIDE 0.9% 1,000 ML IV SCH (22:16)
[2019-07-24] MEDS: IPRATROPIUM-ALBUTEROL 3 ML NEB INHALATION SCH (23:30)
[2019-07-25] MEDS ORDERED: NICOTINE POLACRILEX 2 MG GUM BUCCAL SCH (01:00)
[2019-07-25] MEDS: methylPREDNISolone SOD SUCCI 125 MG/2 ML VIAL IV SCH ×4 (01:02→16:55)
[2019-07-25] MEDS: MORPHINE SULFATE 4 MG/ML SYRINGE IVP PRN ×5 (04:17→21:27)
[2019-07-25] MEDS: LORazepam 2 MG/ML INJ IV PRN ×5 (04:34→21:28)
[2019-07-25] MEDS: SODIUM CHLORIDE 0.9% 1,000 ML IV SCH ×3 (04:38→13:08)
[2019-07-25] MEDS: IPRATROPIUM-ALBUTEROL 3 ML NEB INHALATION PRN (05:30)
[2019-07-25 05:37] LABS: ABG Base Excess -6.3 mmol/L; ABG HCO3 21 mmol/L (21-25); ABG Oxygen Saturation 99.1 % (94-97); ABG PCO2 49 mmHg (35-45); ABG PH 7.24 (7.35-7.45); ABG PO2 157 mmHg (83-108); ABG TCO2 23 mmol/L (19-24); Allen Test Performed? Yes
[2019-07-25 06:11] LABS: Glucose,Whole Blood 170 mg/dL (75-99)
[2019-07-25] MEDS ORDERED: ALBUTEROL NEBULIZED 2.5 MG/3 ML INHALATION SCH (08:00)
[2019-07-25] MEDS: DOXYCYCLINE 100 MG CAP PO SCH (08:31)
[2019-07-25] MEDS ORDERED: NICOTINE 14MG/24HR PATCH TRANSDERM SCH (09:00)
[2019-07-25] MEDS: [UNRECOGNIZED DRUG - OTHER] PO SCH (09:08)
[2019-07-25] MEDS: IPRATROPIUM-ALBUTEROL 3 ML NEB INHALATION SCH ×4 (09:14→21:01)
[2019-07-25 11:48] LABS: Glucose,Whole Blood 183 mg/dL (75-99)
[2019-07-25] MEDS ORDERED: HYDROmorphone 0.5 MG/0.5 ML SYRINGE IVP STA ×2 (12:24→14:23)
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
[2019-07-25] MEDS: NICOTINE 21MG/24HR PATCH TRANSDERM SCH (14:23)
[2019-07-25 16:30] LABS: Glucose,Whole Blood 171 mg/dL (75-99)
[2019-07-25] MEDS: AZITHROMYCIN 500 MG TAB PO SCH (16:55)
[2019-07-25] MEDS: BUDESONIDE 1 MG/2 ML NEBU INHALATION SCH (21:02)
[2019-07-25] MEDS: FORMOTEROL FUMARATE 20 MCG/2 ML NEBU INHALATION SCH (21:02)
[2019-07-25 21:08] LABS: Glucose,Whole Blood 202 mg/dL (75-99)
[2019-07-25] MEDS: FAMOTIDINE 20 MG/2 ML VIAL IV SCH (21:26)
[2019-07-25] MEDS: HEPARIN SODIUM,PORCINE 5,000 UNIT/ML 1 ML VIAL SQ SCH (21:26)
--- NOTE | 2019-07-25 23:11 | CONS ---
CONSULTATION DATE OF SERVICE: 07/25/2019. REASON FOR CONSULTATION: HIV, patient known to me. HISTORY OF PRESENT ILLNESS: The patient is a 49-year-old male with a past medical history significant for HIV AIDS in this patient who seems to have problems with noncompliance and his treatment medical regimen. He was admitted to this facility with the patient was treated for COPD exacerbation and tracheobronchitis. On discharge, the patient was sent home on which according the patient he was taking regularly. However, he did not bring his medication with him. The patient presenting to the ER yesterday with chief complaints of increasing shortness of breath, the was so short with the patient breathing has been getting worse over the last few days. EMS was called because of increasing shortness of breath. The patient was found to be slightly hypoxemic and tachycardia. With these symptoms, the patient was brought into the ER. On arrival to the ER, the patient needed to be on BiPAP because of respiratory distress. He did have a low-grade fever of 100.1. Chest x-ray showed some atelectasis. The patient also complaining of cough with minimal sputum production, that has been wound dry in nature. The patient has been admitted to the hospital and has been started on Rocephin, doxycycline and Zithromax. Infectious Disease was consulted for further recommendations regarding antibiotic therapy. REVIEW OF SYSTEMS: Positive points have been mentioned in HPI. Rest of systems are negative. PAST MEDICAL HISTORY: Past medical history is significant for HIV AIDS, PCP pneumonia, COPD. GI bleed, CVA, TIA. PAST SURGICAL HISTORY: Bronchoscopy, liver biopsy, cataract surgery. SOCIAL HISTORY: Patient current everyday smoker. He has been smoking since 1983. Denies drinking or drug use. FAMILY HISTORY: Mother history of coronary artery disease. ALLERGIES: CODEINE, SULFAMETHOXAZOLE . MEDICATIONS: Medication currently include the patient is on: DuoNeb, Zithromax, Pulmicort, Rocephin, doxycycline, Pepcid, heparin, Ativan, Solu-Medrol, Zofran. PHYSICAL EXAMINATION: Blood pressure is 104/65 with a pulse of 109, temperature 97.7. He is 97% high-flow oxygen. General description is a middle-aged male lying in bed in no distress. No tachypnea or accessory muscles of respiration use. HEENT examination is slight pallor. No scleral icterus. Oral mucosal membranes are dry. Neck: Trachea central. No thyromegaly. LUNGS unlabored breathing with decreased intensity of breath sounds. No wheeze. Heart S1, S2. Regular rate and rhythm. ABDOMEN: Soft, no guarding. No rigidity. No organomegaly. EXTREMITIES are no edema of the feet. SKIN Examination: No rash or mass palpable. NEUROLOGICAL: Patient is awake, alert, oriented x3. Mood and affect normal. LABS: Hemoglobin 11.7, white count 9.3, BUN of 12, creatinine 0.7. Electrolytes have been normal. Liver enzymes are normal. Chest x-ray with some atelectasis. DIAGNOSTIC IMPRESSION AND PLAN: 1. Patient admitted to the hospital with increasing shortness of breath, cough which is likely multifactorial in this patient likely chronic obstructive pulmonary disease exacerbation and tracheobronchitis. Clinically not behaving as pneumonia. 2. Patient HIV, AIDS with noncompliance with medication and failure of treatment. PLAN: 1. The patient will continue with bronchodilator, steroids, Rocephin and Zithromax. 2. Patient will be on discharge which is currently not available at this facility. 3. We will follow up on clinical condition and further adjust medication if needed. Thank you for this consultation. We will follow this patient along with you. MMODL / IJN: [id number] /
[2019-07-26] MEDS: methylPREDNISolone SOD SUCCI 125 MG/2 ML VIAL IV SCH ×5 (01:22→23:11)
[2019-07-26] MEDS: DOXYCYCLINE 100 MG CAP PO SCH (01:23)
[2019-07-26] MEDS: SODIUM CHLORIDE 0.9% 1,000 ML IV SCH ×3 (01:23→11:31)
[2019-07-26] MEDS: IPRATROPIUM-ALBUTEROL 3 ML NEB INHALATION PRN ×2 (01:32→04:29)
[2019-07-26] MEDS: MORPHINE SULFATE 4 MG/ML SYRINGE IVP PRN ×4 (01:56→21:09)
[2019-07-26] MEDS: FORMOTEROL FUMARATE 20 MCG/2 ML NEBU INHALATION SCH ×2 (07:47→19:21)
[2019-07-26] MEDS: IPRATROPIUM-ALBUTEROL 3 ML NEB INHALATION SCH ×4 (07:47→19:21)
[2019-07-26] MEDS: BUDESONIDE 1 MG/2 ML NEBU INHALATION SCH ×2 (07:47→19:21)
[2019-07-26] MEDS: [UNRECOGNIZED DRUG - OTHER] PO SCH (08:12)
[2019-07-26] MEDS: AZITHROMYCIN 500 MG TAB PO SCH (08:40)
[2019-07-26] MEDS: NICOTINE 21MG/24HR PATCH TRANSDERM SCH (08:47)
[2019-07-26] MEDS: FAMOTIDINE 20 MG/2 ML VIAL IV SCH (08:47)
[2019-07-26] MEDS: HEPARIN SODIUM,PORCINE 5,000 UNIT/ML 1 ML VIAL SQ SCH ×2 (08:47→19:56)
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
[2019-07-26 11:03] LABS: T Helper Cell (CD4) <5 cell/ul (443-1471); T Helper Cell (CD4) % <1 % (35-66); T Suppressor Cell (CD8) 135 cell/ul (190-832); T Suppressor Cell (CD8) % 30 % (9-37); T4/T8 Ratio (CD4:CD8) <0.1 (1.0-3.7)
[2019-07-26 11:23] LABS: Anisocytosis Slight; Basophils % (A) 0 %; Eosinophils % (A) 0 %; HCT 30.4 % (39.0-53.0); Lymphocytes # (A) 0.1 k/uL (1.0-4.8); Lymphocytes % (A) 1 %; MCH 29.7 pg (25.0-35.0); MCHC 32.3 g/dL (31.0-37.0); MCV 91.9 fL (80.0-100.0); Mean Platelet Volume 7.4; Monocytes # (A) 0.3 k/uL (0-1.0); Monocytes % (A) 2 %; Neutrophils # (A) 10.3 k/uL (1.3-7.7); Neutrophils % (A) 95 %; Platelet Count 154 k/uL (150-450); RBC 3.31 m/uL (4.30-5.90); RDW 16.7 % (11.5-15.5); WBC 10.8 k/uL (3.8-10.6)
[2019-07-26 11:24] LABS: African American GFR (CKD) >90 (>60 ml/min/1.73 sqM); Anion Gap 5 mmol/L; Blood Urea Nitrogen 18 mg/dL (9-20); Calcium 8.4 mg/dL (8.4-10.2); Carbon Dioxide 24 mmol/L (22-30); Chloride 111 mmol/L (98-107); Glucose 155 mg/dL (74-99); Non-African American GFR(CKD) >90 (>60 ml/min/1.73 sqM); Potassium 4.6 mmol/L (3.5-5.1); Sodium 140 mmol/L (137-145)
[2019-07-26 11:25] LABS: HGB 9.8 gm/dL (13.0-17.5)
--- NOTE | 2019-07-26 11:56 | P.PN ---
Subjective Progress Note Date: 07/26/19 Principal diagnosis: Acute exacerbation of COPD 49-year-old white male with history of HIV AIDS, who has failed multiple treatment regimes, and his most recent CD4 count of 1, and a viral load of 2.4 million. Patient has a history of previous Pneumocystis carinii pneumonia di agnosed by bronchoscopy by Dr. Verde in 2015. Other medical history includes COPD, CVA/TIA with residual left-sided weakness previous episode of GI bleeding, previous episodes of pneumonia, ADD/ADHD, former smoker, strongly of CMV, and shingles several years ago. Patient was recently hospitalized for acute exacerbation of COPD with a tracheobronchitis, clinically improved and was discharged home in stable condition to 07/13/2019. Patient presented to the emergency department on 07/24/2019 with complaints of worsening dyspnea, cough, tachycardia, chest pain, back pain, muscle pain and fever. he is currently on BiPAP support, and has difficulty beginning. This is, and most of the history was obtained from the chart, reported significant decreased appetite and dehydration, anorexia and weight loss. He states he has a laser machine at home, and he has been doing his breathing treatments, chest x-ray was obtained showing minimal subsegmental atelectasis at the left lung base. EKG showed sinus tachycardia rate of 159, she was febrile with a temp of 100.1F on presentation, he was fluid resuscitated, received a total of 3/2 L of IV fluids in the emergency department, his current IV fluids are infusing at a rate of 75 ML per hour. He was placed on BiPAP support for increased work of breathing, and his breathing has significantly improved, although still quite dyspneic and bronchospastic and requiring frequent BiPAP support. Patient has been started on antibiotics, and IV steroids. I work has been reviewed showing blood cell count of 9.3, hemoglobin of 11.7, coagulation profile was within normal limits, electrolytes and renal profile, LFTs were within normal limits, proBNP was 124, troponin was negative at less than 0.012. Gas was obtained showing pO2 of 157, pCO2 of 49, and pH was 7.24 this was done and FiO2 of 50%, and is consistent with acute respiratory acidosis, with acute hypercapnic respiratory failure. On 07/26/2019 patient seen in follow-up on selective care unit, did wear BiPAP part of the night, he is currently on 10 L per high flow oxygen 94%, afebrile, still a little tachycardic with a heart rate in the 110s, but looks and sounds better on today's exam, less dyspneic, still bronchospastic, but less congested, patient was able to produce a sputum specimen which was sent for cultures. We will switch patient's antibiotic coverage to Rocephin and Zithromax, patient is on IV steroids and breathing treatments, his labs have been reviewed, showing white blood cell count of 7.8, hemoglobin of 9.8, sodium is 140, potassium is 4.6, chloride is 111, the rest of the electrolytes and renal profile were unremarkable. Objective - Vital Signs Vital signs: Vital Signs Temp 97.8 F 07/26/19 08:10 Pulse 94 07/26/19 11:30 Resp 19 07/26/19 08:10 BP 120/69 07/26/19 08:10 Pulse Ox 94 L 07/26/19 08:10 Intake & Output 07/25/19 07/26/19 07/26/19 18:59 06:59 18:59 Intake Total 1470 240 Output Total 400 1200 Balance -400 270 240 Weight 61.5 kg 65 kg Intake: Intake, IV Titration 1350 Amount Sodium Chloride 0.9% 1, 1350 000 ml @ 150 mls/hr IV . Q6H40M [facility] Rx#:[id number] Oral 120 240 Output: Urine 400 1200 Other: Voiding Method Urinal # Voids 4 1 - Exam GENERAL EXAM: Alert, very pleasant, thin 49-year-old white male, looks fatigued, but less dyspneic on today's exam, currently on 10 L per high flow oxygen and BiPAP support with pressures of 12/5, and FiO2 of 50% intermittently HEAD: Normocephalic/atraumatic. EYES: Normal reaction of pupils, equal size. Conjunctiva pink, sclera white. NOSE: Clear with pink turbinates. THROAT: No erythema or exudates. NECK: No masses, no JVD, no thyroid enlargement, no adenopathy. CHEST: No chest wall deformity. Symmetrical expansion. LUNGS: Equal air entry with diffuse wheezing , congested, and less bronchospastic on today's exam CVS: Regular rate and rhythm, normal S1 and S2, no gallops, no murmurs, no rubs ABDOMEN: Soft, nontender. No hepatosplenomegaly, normal bowel sounds, no guarding or rigidity. EXTREMITIES: No clubbing, no edema, no cyanosis, 2+ pulses and upper and lower extremities. MUSCULOSKELETAL: Muscle strength and tone normal. SPINE: No scoliosis or deformity SKIN: No rashes CENTRAL NERVOUS SYSTEM: Alert and oriented -3. No focal deficits, tone is normal in all 4 extremities. PSYCHIATRIC: Alert and oriented -3. Appropriate affect. Intact judgment and insight. - Labs CBC & Chem 7: 07/26/19 10:46 07/26/19 10:46 Labs: Abnormal Lab Results - Last 24 Hours (Table) 07/24/19 07/25/19 07/25/19 Range/Units 20:15 16:28 20:46 WBC (3.8-10.6) k/uL RBC (4.30-5.90) m/uL Hgb (13.0-17.5) gm/dL Hct (39.0-53.0) % RDW (11.5-15.5) % Neutrophils # (1.3-7.7) k/uL Lymphocytes # (1.0-4.8) k/uL Chloride (98-107) mmol/L Glucose (74-99) mg/dL POC Glucose (mg/dL) 171 H 202 H (75-99) mg/dL T-Suppressor Cells 135 L (190-832) cell/ul % CD4 [place] <1 L (35-66) % Absolute CD4 [place] <5 L (443-1471) cell/ul CD4/CD8 Ratio <0.1 L (1.0-3.7) 07/26/19 07/26/19 Range/Units 10:46 10:46 WBC 10.8 H (3.8-10.6) k/uL RBC 3.31 L (4.30-5.90) m/uL Hgb 9.8 L D (13.0-17.5) gm/dL Hct 30.4 L (39.0-53.0) % RDW 16.7 H (11.5-15.5) % Neutrophils # 10.3 H (1.3-7.7) k/uL Lymphocytes # 0.1 L (1.0-4.8) k/uL Chloride 111 H (98-107) mmol/L Glucose 155 H (74-99) mg/dL POC Glucose (mg/dL) (75-99) mg/dL T-Suppressor Cells (190-832) cell/ul % CD4 [place] (35-66) % Absolute CD4 [place] (443-1471) cell/ul CD4/CD8 Ratio (1.0-3.7) Microbiology - Last 24 Hours (Table) 07/24/19 20:15 Blood Culture - Preliminary Blood No Growth after 24 hours Assessment and Plan Plan: Assessment: #1. Acute hypoxemic and hypercapnic respiratory failure related to acute exa cerbation of chronic obstructive pulmonary disease and acute tracheal bronchitis #2. Recent hospitalization for the same patient was discharged home on July 13 2019 #3. History of HIV AIDS, with most recent CD4 count of 1 and a viral load of 2.4 million, has failed multiple treatment regimes #4. History of PCP pneumonia in 2015 diagnosed via bronchoscopic lavage #5. History of COPD not normally oxygen dependent #6. Extensive history of smoking #7. History of CVA/TIA with residual left-sided weakness #8. History of ADD/ADHD #9. History of CMV, and shingles infection #10. Chronic constipation Plan: Continue current medical treatment, Rocephin and Zithromax, sputum cultures pending, patient has been afebrile, breathing a lot easier on today's exam, he is tolerating high flow nasal cannula trials, less bronchospastic and less congested, still dyspneic, chest x-ray did not show acute pulmonary process, we'll continue to closely follow, patient is starting to respond to medical treatment, may consider bronchoscopy if there is lack of improvement I performed a history & physical examination of the patient and discussed their management with my nurse practitioner, Charlotte Vincent. I reviewed the nurse practitioner's note and agree with the documented findings and plan of care. Lung sounds are positive for diffuse wheezes throughout the lung valdez. The findings and the impression was discussed with the patient. I attest to the documentation by the nurse practitioner. Time with Patient: Less than 30
[2019-07-26] MEDS ORDERED: guaiFENesin-DM 100-10MG/5ML 10 ML CUP PO PRN (12:01)
[2019-07-26] MEDS: LORazepam 2 MG/ML INJ IV PRN ×3 (12:21→21:40)
[2019-07-26] MEDS: FAMOTIDINE 20 MG TAB PO SCH (19:56)
--- NOTE | 2019-07-26 22:21 | PN ---
PROGRESS NOTE DATE OF SERVICE: 07/26/2019 REASON FOR FOLLOWUP: 1. COPD exacerbation and tracheobronchitis. 2. HIV. INTERVAL HISTORY: The patient is currently afebrile. The patient is still requiring BiPAP off and on for respiratory support. Denies having any chest pain. Did have a cough but was not bringing up any sputum. No nausea, vomiting or diarrhea. PHYSICAL EXAMINATION: Blood pressure is 119/74 with a pulse of 102, temperature 97.6. He is 100% on BiPAP. General description is a middle-aged male lying in bed in no distress. RESPIRATORY SYSTEM: Unlabored breathing with decreased intensity of breath sounds. No wheeze. HEART: S1, S2. Regular rate and rhythm. ABDOMEN: Soft. No tenderness. LABS: Hemoglobin is 9.2, white count 10.8. BUN of 18, creatinine 0.72. Blood culture so far negative. Sputum not collected. DIAGNOSTIC IMPRESSION AND PLAN: 1. Patient admitted to hospital with difficulty breathing in this patient with underlying chronic obstructive pulmonary disease; likely COPD exacerbation with tracheobronchitis. Clinically not behaving as pneumonia. The patient is covered with steroids, bronchodilator and antibiotics; to continue. 2. Patient with HIV. The patient will resume his Biktarvy on discharge. Continue with supportive care. MMODL / IJN: [id number] /
[2019-07-27] MEDS: MORPHINE SULFATE 4 MG/ML SYRINGE IVP PRN ×4 (02:32→16:42)
[2019-07-27] MEDS: SODIUM CHLORIDE 0.9% 1,000 ML IV SCH ×2 (02:33→16:41)
[2019-07-27] MEDS: LORazepam 2 MG/ML INJ IV PRN ×4 (03:53→16:43)
[2019-07-27] MEDS: methylPREDNISolone SOD SUCCI 125 MG/2 ML VIAL IV SCH ×4 (05:59→22:49)
[2019-07-27] MEDS: IPRATROPIUM-ALBUTEROL 3 ML NEB INHALATION SCH ×4 (07:26→19:44)
[2019-07-27] MEDS: FORMOTEROL FUMARATE 20 MCG/2 ML NEBU INHALATION SCH ×2 (07:27→19:44)
[2019-07-27] MEDS: BUDESONIDE 1 MG/2 ML NEBU INHALATION SCH ×2 (07:27→19:44)
[2019-07-27] MEDS: HEPARIN SODIUM,PORCINE 5,000 UNIT/ML 1 ML VIAL SQ SCH ×2 (07:49→19:37)
[2019-07-27] MEDS: AZITHROMYCIN 500 MG TAB PO SCH (07:56)
[2019-07-27] MEDS: FAMOTIDINE 20 MG TAB PO SCH ×2 (07:56→19:37)
[2019-07-27] MEDS: NICOTINE 21MG/24HR PATCH TRANSDERM SCH (07:56)
[2019-07-27] MEDS: [UNRECOGNIZED DRUG - OTHER] PO SCH (07:56)
--- NOTE | 2019-07-27 12:53 | P.PN ---
Subjective Progress Note Date: 07/27/19 Principal diagnosis: Acute exacerbation of COPD 49-year-old white male with history of HIV AIDS, who has failed multiple treatment regimes, and his most recent CD4 count of 1, and a viral load of 2.4 million. Patient has a history of previous Pneumocystis carinii pneumonia di agnosed by bronchoscopy by Dr. Verde in 2015. Other medical history includes COPD, CVA/TIA with residual left-sided weakness previous episode of GI bleeding, previous episodes of pneumonia, ADD/ADHD, former smoker, strongly of CMV, and shingles several years ago. Patient was recently hospitalized for acute exacerbation of COPD with a tracheobronchitis, clinically improved and was discharged home in stable condition to 07/13/2019. Patient presented to the emergency department on 07/24/2019 with complaints of worsening dyspnea, cough, tachycardia, chest pain, back pain, muscle pain and fever. he is currently on BiPAP support, and has difficulty beginning. This is, and most of the history was obtained from the chart, reported significant decreased appetite and dehydration, anorexia and weight loss. He states he has a laser machine at home, and he has been doing his breathing treatments, chest x-ray was obtained showing minimal subsegmental atelectasis at the left lung base. EKG showed sinus tachycardia rate of 159, she was febrile with a temp of 100.1F on presentation, he was fluid resuscitated, received a total of 3/2 L of IV fluids in the emergency department, his current IV fluids are infusing at a rate of 75 ML per hour. He was placed on BiPAP support for increased work of breathing, and his breathing has significantly improved, although still quite dyspneic and bronchospastic and requiring frequent BiPAP support. Patient has been started on antibiotics, and IV steroids. I work has been reviewed showing blood cell count of 9.3, hemoglobin of 11.7, coagulation profile was within normal limits, electrolytes and renal profile, LFTs were within normal limits, proBNP was 124, troponin was negative at less than 0.012. Gas was obtained showing pO2 of 157, pCO2 of 49, and pH was 7.24 this was done and FiO2 of 50%, and is consistent with acute respiratory acidosis, with acute hypercapnic respiratory failure. On 07/26/2019 patient seen in follow-up on selective care unit, did wear BiPAP part of the night, he is currently on 10 L per high flow oxygen 94%, afebrile, still a little tachycardic with a heart rate in the 110s, but looks and sounds better on today's exam, less dyspneic, still bronchospastic, but less congested, patient was able to produce a sputum specimen which was sent for cultures. We will switch patient's antibiotic coverage to Rocephin and Zithromax, patient is on IV steroids and breathing treatments, his labs have been reviewed, showing white blood cell count of 7.8, hemoglobin of 9.8, sodium is 140, potassium is 4.6, chloride is 111, the rest of the electrolytes and renal profile were unremarkable. On 07/27/2019 patient seen in follow-up on selective care unit, still quite dyspneic especially with exertion, still requiring high flow oxygen at 10 L, wearing BiPAP intermittently, this morning patient insisted to go to the ba throom to get cleaned up and he came significantly short of breath requiring a while to recover his breathing. He was advised to be assisted with his baths and avoid overexertion until his breathing has improved, is on IV steroids, antibiotics, and nebulized bronchodilators, minimally improved and patient is scheduled for bronchoscopy with BAL today Objective - Vital Signs Vital signs: Vital Signs Temp 97.9 F 07/27/19 11:28 Pulse 92 07/27/19 11:42 Resp 18 07/27/19 11:43 BP 132/75 07/27/19 11:28 Pulse Ox 98 07/27/19 11:28 Intake & Output 07/26/19 07/27/19 07/27/19 18:59 06:59 18:59 Intake Total 480 Output Total 400 100 Balance 80 -100 Weight 63.5 kg 63.5 kg Intake: Oral 480 Output: Urine 400 100 Other: Voiding Method Urinal # Voids 1 1 - Exam GENERAL EXAM: Alert, very pleasant, thin 49-year-old white male, looks fatigued, very dyspneic with any exertion on today's exam, currently on 10 L per high flow oxygen and BiPAP support with pressures of 12/5, and FiO2 of 50% intermittently HEAD: Normocephalic/atraumatic. EYES: Normal reaction of pupils, equal size. Conjunctiva pink, sclera white. NOSE: Clear with pink turbinates. THROAT: No erythema or exudates. NECK: No masses, no JVD, no thyroid enlargement, no adenopathy. CHEST: No chest wall deformity. Symmetrical expansion. LUNGS: Equal air entry with diffuse wheezing , congested, and less bronchospastic on today's exam CVS: Regular rate and rhythm, normal S1 and S2, no gallops, no murmurs, no rubs ABDOMEN: Soft, nontender. No hepatosplenomegaly, normal bowel sounds, no guarding or rigidity. EXTREMITIES: No clubbing, no edema, no cyanosis, 2+ pulses and upper and lower extremities. MUSCULOSKELETAL: Muscle strength and tone normal. SPINE: No scoliosis or deformity SKIN: No rashes CENTRAL NERVOUS SYSTEM: Alert and oriented -3. No focal deficits, tone is normal in all 4 extremities. PSYCHIATRIC: Alert and oriented -3. Appropriate affect. Intact judgment and insight. - Labs CBC & Chem 7: 07/26/19 10:46 07/26/19 10:46 Labs: Microbiology - Last 24 Hours (Table) 07/24/19 20:15 Blood Culture - Preliminary Blood No Growth after 48 hours Assessment and Plan Plan: Assessment: #1. Acute hypoxemic and hypercapnic respiratory failure related to acute exacerbation of chronic obstructive pulmonary disease and acute tracheal bronchitis #2. Recent hospitalization for the same patient was discharged home on July 13 2019 #3. History of HIV AIDS, with most recent CD4 count of 1 and a viral load of 2.4 million, has failed multiple treatment regimes #4. History of PCP pneumonia in 2015 diagnosed via bronchoscopic lavage #5. History of COPD not normally oxygen dependent #6. Extensive history of smoking #7. History of CVA/TIA with residual left-sided weakness #8. History of ADD/ADHD #9. History of CMV, and shingles infection #10. Chronic constipation Plan: Patient continues with dyspnea, especially exertional, remains on high flow oxygen, wearing BiPAP intermittently, still bronchospastic and congested although showing some improvement, his been nothing by mouth after midnight, we'll proceed with bronchoscopy with BAL this afternoon with Dr. Verde. we will continue all the same medical treatment I performed a history & physical examination of the patient and discussed their management with my nurse practitioner, Charlotte Vincent. I reviewed the nurse practitioner's note and agree with the documented findings and plan of care. Lung sounds are positive for diffuse wheezes throughout the lung valdez. The findings and the impression was discussed with the patient. I attest to the documentation by the nurse practitioner. Time with Patient: Less than 30
[2019-07-27] MEDS ORDERED: LIDOCAINE 1% INJ 10MG/ML (20 ML MDV) ONE (15:01)
[2019-07-27] MEDS ORDERED: PROPOFOL 10 MG/ML 20 ML VIAL IV ONE (15:01)
[2019-07-27] MEDS ORDERED: KETAMINE 10 MG/ML 20 ML VIAL ONE (15:01)
[2019-07-27] MEDS ORDERED: MIDAZOLAM 2 MG/2 ML VIAL ONE (15:01)
[2019-07-27] MEDS ORDERED: IV FLUID CONTINUATION 1,000 ML IV ONE (15:02)
[2019-07-27] MEDS ORDERED: LIDOCAINE 2% INJ 20 MG/ML INTRATRACH ONE (15:13)
[2019-07-27] MEDS: NYSTATIN 100,000 UNIT/ML SUSP 500,000 UNIT/5 ML CUP PO SCH ×2 (16:41→19:37)
[2019-07-27] MEDS: FLUCONAZOLE 100 MG TAB PO SCH (16:41)
--- NOTE | 2019-07-27 18:46 | P.PN ---
Subjective Progress Note Date: 07/27/19 Principal diagnosis: Acute exacerbation of COPD 07/27/2019 patient seen in follow-up on selective care unit, still quite dyspneic especially with exertion, still requiring high flow oxygen at 10 L, wearing BiPAP intermittently, this morning patient insisted to go to the bathroom to get cleaned up and he came significantly short of breath requiring a while to recover his breathing. He was advised to be assisted with his baths and avoid overexertion until his breathing has improved, is on IV steroids, antibiotics, and nebulized bronchodilators, minimally improved and patient is scheduled for bronchoscopy with BAL today Objective - Vital Signs Vital signs: Vital Signs Temp 97.9 F 07/27/19 11:28 Pulse 90 07/27/19 11:32 Resp 18 07/27/19 11:28 BP 132/75 07/27/19 11:28 Pulse Ox 98 07/27/19 11:28 Intake & Output 07/26/19 07/27/19 07/27/19 18:59 06:59 18:59 Intake Total 480 Output Total 400 100 Balance 80 -100 Weight 63.5 kg Intake: Oral 480 Output: Urine 400 100 Other: Voiding Method Urinal # Voids 1 1 - Exam GENERAL EXAM: Alert, very pleasant, thin 49-year-old white male, looks fatigued, very dyspneic with any exertion on today's exam, currently on 10 L per high flow oxygen and BiPAP support with pressures of 12/5, and FiO2 of 50% intermittently HEAD: Normocephalic/atraumatic. EYES: Normal reaction of pupils, equal size. Conjunctiva pink, sclera white. NOSE: Clear with pink turbinates. THROAT: No erythema or exudates. NECK: No masses, no JVD, no thyroid enlargement, no adenopathy. CHEST: No chest wall deformity. Symmetrical expansion. LUNGS: Equal air entry with diffuse wheezing , congested, and less bronchospastic on today's exam CVS: Regular rate and rhythm, normal S1 and S2, no gallops, no murmurs, no rubs ABDOMEN: Soft, nontender. No hepatosplenomegaly, normal bowel sounds, no guarding or rigidity. EXTREMITIES: No clubbing, no edema, no cyanosis, 2+ pulses and upper and lower extremities. MUSCULOSKELETAL: Muscle strength and tone normal. - Labs CBC & Chem 7: 07/26/19 10:46 07/26/19 10:46 Labs: Microbiology - Last 24 Hours (Table) 07/24/19 20:15 Blood Culture - Preliminary Blood No Growth after 48 hours Assessment and Plan Assessment: #1. Acute hypoxemic and hypercapnic respiratory failure related to acute exacerbation of chronic obstructive pulmonary disease and acute tracheal bronchitis #2. Recent hospitalization for the same patient was discharged home on July 13 2019 #3. History of HIV AIDS, with most recent CD4 count of 1 and a viral load of 2.4 million, has failed multiple treatment regimes #4. History of PCP pneumonia in 2015 diagnosed via bronchoscopic lavage #5. History of COPD not normally oxygen dependent #6. Extensive history of smoking #7. History of CVA/TIA with residual left-sided weakness #8. History of ADD/ADHD #9. History of CMV, and shingles infection #10. Chronic constipation Plan: Patient continues with dyspnea, especially exertional, remains on high flow oxygen, wearing BiPAP intermittently, still bronchospastic and congested although showing some improvement, his been nothing by mouth after midnight, we'll proceed with bronchoscopy with BAL this afternoon with Dr. Verde. we will continue all the same medical treatment
--- NOTE | 2019-07-27 20:19 | PN ---
PROGRESS NOTE DATE OF SERVICE: 07/27/2019 REASON FOR FOLLOWUP: 1. HIV. 2. Possible pneumonia. INTERVAL HISTORY: The patient is currently afebrile. He is requiring a BiPAP. The patient is scheduled for bronchoscopy this afternoon. He denies having any chest pain. He did have some cough, minimal sputum. No nausea. No vomiting and no diarrhea. PHYSICAL EXAMINATION: Blood pressure 132/75 with a pulse of 99. Temperature 97.9. He is 98% on BiPAP. General description is a middle-aged male lying in bed in no distress. Respiratory system: Unlabored breathing, decreased intensity in the breath sounds in the base, with no wheeze. Heart S1, S2. Regular rate and rhythm. Abdomen soft. No tenderness. LABS: Hemoglobin 9.8, white count 10.8. BUN of 18, creatinine 0.72. Blood culture has been negative. DIAGNOSTIC IMPRESSION AND PLAN: 1. Patient admitted to the hospital with shortness of breath, which is likely COPD exacerbation, possible tracheobronchitis. Clinically not behaving as pneumonia. Waiting the bronchoscopy to be completed and deep cultures. Continue with empiric Rocephin and Zithromax. Monitor clinical course closely. 2. Patient HIV. He will resume his Biktarvy which was on his last visit. MMODL / IJN: [id number] /
--- NOTE | 2019-07-27 22:55 | OP ---
OPERATIVE REPORT OPERATIVE PROCEDURE: Bronchoscopy and random bronchoalveolar lavage of the right middle lobe, right lower lobe, lingula and left lower lobe. PREOPERATIVE DIAGNOSIS: Acute exacerbation of chronic obstructive pulmonary disease, difficulty clearing secretions, HIV positive. POSTOPERATIVE DIAGNOSIS: Oropharyngeal thrush, purulent tracheobronchitis. ANESTHESIA USED: IV conscious sedation. PROCEDURE DESCRIPTION: The patient was prepared according to the bronchoscopy protocol. He was placed in supine position, IV conscious sedation was administered. We monitored his oxygen saturation continuously. Blood pressure was intermittently monitored. Cardiac rhythm was continuously monitored. After adequate IV conscious sedation, a bite block was used, and through the bite block the bronchoscope was advanced down to the area of the vocal cords. There was clearly evidence of fungal infection involving the upper airways and the oropharynx. Then lidocaine was applied over the vocal cords, and the bronchoscope was advanced further down to the trachea. Thorough examination was done of the trachea, [place], right upper lobe, right middle lobe, right lower lobe, left upper lobe, lingula and left lower lobe. There was evidence of significant thick purulent secretions throughout the whole airway, but mostly in the lingula, left lower lobe, right middle lobe and right lower lobe. These secretions were suctioned and lavaged until clear. The procedure was well tolerated; no evidence of any immediate complications. Fluid obtained was sent for different diagnostic studies, including PCP stain. MMODL / IJN: [id number] /
[2019-07-28] MEDS: SODIUM CHLORIDE 0.9% 1,000 ML IV SCH (04:59)
[2019-07-28] MEDS: methylPREDNISolone SOD SUCCI 125 MG/2 ML VIAL IV SCH ×4 (05:00→23:35)
[2019-07-28] MEDS: MORPHINE SULFATE 4 MG/ML SYRINGE IVP PRN ×6 (05:18→23:53)
[2019-07-28] MEDS: IPRATROPIUM-ALBUTEROL 3 ML NEB INHALATION PRN (06:18)
[2019-07-28 06:31] LABS: Glucose,Whole Blood 148 mg/dL (75-99)
[2019-07-28] MEDS: INSULIN ASPART (NovoLOG) 100 UNIT/ML VIAL SQ SCH ×4 (06:31→20:33)
--- NOTE | 2019-07-28 06:55 | XR ---
EXAMINATION TYPE: XR chest 1V portable DATE OF EXAM: 07/28/2019 HISTORY: sob /tracheobronchitis. REFERENCE: Previous study dated 07/24/2019. FINDINGS: Lung volumes are prominent. There is some scarring or atelectasis at the left lung base. [place] ngs are otherwise clear. The heart is not enlarged. There is some blunting of the left CP angle. I ca nnot exclude a small left effusion. IMPRESSION: 1. PLEASE CORRELATE FOR COPD. 2. SCARRING VERSUS ATELECTASIS, LEFT LUNG BASE. 3. I COULD NOT EXCLUDE SMALL, LEFT EFFUSION.
[2019-07-28] MEDS: BUDESONIDE 1 MG/2 ML NEBU INHALATION SCH ×2 (07:25→19:37)
[2019-07-28] MEDS: IPRATROPIUM-ALBUTEROL 3 ML NEB INHALATION SCH ×4 (07:25→19:37)
[2019-07-28] MEDS: FORMOTEROL FUMARATE 20 MCG/2 ML NEBU INHALATION SCH ×2 (07:25→19:37)
[2019-07-28] MEDS: AZITHROMYCIN 500 MG TAB PO SCH (09:38)
[2019-07-28] MEDS: FAMOTIDINE 20 MG TAB PO SCH ×2 (09:38→20:32)
[2019-07-28] MEDS: FLUCONAZOLE 100 MG TAB PO SCH (09:38)
[2019-07-28] MEDS: NYSTATIN 100,000 UNIT/ML SUSP 500,000 UNIT/5 ML CUP PO SCH ×4 (09:40→23:35)
[2019-07-28] MEDS: HEPARIN SODIUM,PORCINE 5,000 UNIT/ML 1 ML VIAL SQ SCH ×2 (09:43→20:23)
[2019-07-28] MEDS: LORazepam 2 MG/ML INJ IV PRN ×3 (11:01→23:53)
[2019-07-28 11:21] LABS: Glucose,Whole Blood 128 mg/dL (75-99)
[2019-07-28] MEDS: [UNRECOGNIZED DRUG - OTHER] PO SCH (12:22)
[2019-07-28] MEDS: NICOTINE 21MG/24HR PATCH TRANSDERM SCH (13:07)
--- NOTE | 2019-07-28 13:14 | PN ---
PROGRESS NOTE DATE OF SERVICE: 07/28/2019. REASON FOR FOLLOWUP: 1. COPD exacerbation and tracheobronchitis. 2. HIV. INTERVAL HISTORY: The patient is currently afebrile. Patient has been complaining of shortness of breath. He did have some cough but not bringing up any sputum. No nausea, no vomiting. No abdominal pain and no diarrhea. PHYSICAL EXAMINATION: Blood pressure 133/79 with a pulse of 108 temperature 97.9. He is 92% on room air. General description is a middle-aged male lying in bed in no distress. RESPIRATORY SYSTEM: Unlabored breathing, decreased intensity breath sounds. No wheeze. HEART: S1, S2. Regular rate and rhythm. ABDOMEN: Soft, no tenderness. EXTREMITIES: No edema of the feet. LABS: Hemoglobin is 9.8, white count 10.8, creatinine 0.72. This is blood work from 07/26, no blood work has been repeated since then. DIAGNOSTIC IMPRESSION AND PLAN: 1. Patient presented to the hospital with increasing shortness of breath in this patient likely chronic obstructive pulmonary disease exacerbation with tracheobronchitis. Clinically suspicion of underlying bacterial pneumonia. The patient is covered with Rocephin in addition to antibiotic will continue while waiting for the bronch culture to finalize. 2. HIV. The patient will restart his Biktarvy on discharge. Continue supportive care. MMODL / IJN: [id number] /
[2019-07-28 16:36] LABS: Glucose,Whole Blood 124 mg/dL (75-99)
--- NOTE | 2019-07-28 17:18 | P.PN ---
Subjective Progress Note Date: 07/28/19 Principal diagnosis: Acute exacerbation of COPD 07/27/2019 patient seen in follow-up on selective care unit, still quite dyspneic especially with exertion, still requiring high flow oxygen at 10 L, wearing BiPAP intermittently, this morning patient insisted to go to the bathroom to get cleaned up and he came significantly short of breath requiring a while to recover his breathing. He was advised to be assisted with his baths and avoid overexertion until his breathing has improved, is on IV steroids, antibiotics, and nebulized bronchodilators, minimally improved and patient is scheduled for bronchoscopy with BAL today 07/28/2019 Patient is seen and evaluated in room at bedside; continues to complain of some shortness of breath and dry cough Vital signs remained stable with a temperature of 97.9 and blood pressure 13 3/79; SpO2 92% on room air Lab work significant for hemoglobin of 9.8, white blood count 10.8 and cr eatinine of 0.7 Patient continues to remain on IV antibiotics for severe tracheobronchitis along with high flow nasal cannula oxygen; ID has evaluated patient and added Rocephin; continue current management Objective - Vital Signs Vital signs: Vital Signs Temp 97.9 F 07/28/19 12:00 Pulse 108 H 07/28/19 12:00 Resp 18 07/28/19 12:00 BP 133/79 07/28/19 12:00 Pulse Ox 92 L 07/28/19 12:00 Intake & Output 07/27/19 07/28/19 07/28/19 18:59 06:59 18:59 Intake Total 200 120 Output Total 100 100 Balance 100 -100 120 Weight 63.5 kg 60.8 kg Intake: IV 200 Oral 120 Output: Urine 100 100 Other: Voiding Method Urinal # Voids 1 1 - Exam GENERAL EXAM: Alert, very pleasant, thin 49-year-old white male, looks fatigued, very dyspneic with any exertion on today's exam, currently on 10 L per high flow oxygen and BiPAP support with pressures of 12/5, and FiO2 of 50% intermittently HEAD: Normocephalic/atraumatic. EYES: Normal reaction of pupils, equal size. Conjunctiva pink, sclera white. NOSE: Clear with pink turbinates. THROAT: No erythema or exudates. NECK: No masses, no JVD, no thyroid enlargement, no adenopathy. CHEST: No chest wall deformity. Symmetrical expansion. LUNGS: Equal air entry with diffuse wheezing , congested, and less bronchospastic on today's exam CVS: Regular rate and rhythm, normal S1 and S2, no gallops, no murmurs, no rubs ABDOMEN: Soft, nontender. No hepatosplenomegaly, normal bowel sounds, no guarding or rigidity. EXTREMITIES: No clubbing, no edema, no cyanosis, 2+ pulses and upper and lower extremities. MUSCULOSKELETAL: Muscle strength and tone normal. - Labs CBC & Chem 7: 07/26/19 10:46 07/26/19 10:46 Labs: Abnormal Lab Results - Last 24 Hours (Table) 07/28/19 07/28/19 Range/Units 06:29 11:20 POC Glucose (mg/dL) 148 H 128 H (75-99) mg/dL Microbiology - Last 24 Hours (Table) 07/24/19 20:15 Blood Culture - Preliminary Blood No Growth after 72 hours 07/27/19 03:30 Gram Stain - Preliminary Sputum Assessment and Plan Assessment: #1. Acute hypoxemic and hypercapnic respiratory failure related to acute exac erbation of chronic obstructive pulmonary disease and acute tracheal bronchitis #2. Recent hospitalization for the same patient was discharged home on July 13 2019 #3. History of HIV AIDS, with most recent CD4 count of 1 and a viral load of 2.4 million, has failed multiple treatment regimes #4. History of PCP pneumonia in 2015 diagnosed via bronchoscopic lavage #5. History of COPD not normally oxygen dependent #6. Extensive history of smoking #7. History of CVA/TIA with residual left-sided weakness #8. History of ADD/ADHD #9. History of CMV, and shingles infection #10. Chronic constipation Plan: Patient continues with dyspnea, especially exertional, remains on high flow oxygen, wearing BiPAP intermittently, still bronchospastic and congested although showing some improvement, his been nothing by mouth after midnight, we'll proceed with bronchoscopy with BAL this afternoon with Dr. Verde. we will continue all the same medical treatment
[2019-07-28 20:21] LABS: Glucose,Whole Blood 158 mg/dL (75-99)
[2019-07-29] MEDS: SODIUM CHLORIDE 0.9% 1,000 ML IV SCH ×3 (00:32→20:04)
[2019-07-29] MEDS: LORazepam 2 MG/ML INJ IV PRN (03:49)
[2019-07-29] MEDS: MORPHINE SULFATE 4 MG/ML SYRINGE IVP PRN ×2 (03:49→09:18)
[2019-07-29] MEDS: methylPREDNISolone SOD SUCCI 125 MG/2 ML VIAL IV SCH ×4 (05:14→23:45)
[2019-07-29 07:14] LABS: Glucose,Whole Blood 126 mg/dL (75-99)
[2019-07-29] MEDS: FORMOTEROL FUMARATE 20 MCG/2 ML NEBU INHALATION SCH ×2 (07:25→18:57)
[2019-07-29] MEDS: IPRATROPIUM-ALBUTEROL 3 ML NEB INHALATION SCH ×4 (07:25→18:57)
[2019-07-29] MEDS: BUDESONIDE 1 MG/2 ML NEBU INHALATION SCH ×2 (07:25→18:58)
[2019-07-29 07:41] LABS: Basophils % (A) 1 %; Eosinophils % (A) 0 %; HCT 32.3 % (39.0-53.0); HGB 10.7 gm/dL (13.0-17.5); Lymphocytes # (A) 0.2 k/uL (1.0-4.8); Lymphocytes % (A) 5 %; MCH 30.1 pg (25.0-35.0); MCHC 33.1 g/dL (31.0-37.0); MCV 90.8 fL (80.0-100.0); Mean Platelet Volume 7.7; Monocytes # (A) 0.2 k/uL (0-1.0); Monocytes % (A) 6 %; Neutrophils # (A) 3.2 k/uL (1.3-7.7); Neutrophils % (A) 87 %; Platelet Count 169 k/uL (150-450); RBC 3.56 m/uL (4.30-5.90); RDW 15.9 % (11.5-15.5); WBC 3.6 k/uL (3.8-10.6)
[2019-07-29 08:00] LABS: African American GFR (CKD) >90 (>60 ml/min/1.73 sqM); Anion Gap 9 mmol/L; Blood Urea Nitrogen 22 mg/dL (9-20); Calcium 8.8 mg/dL (8.4-10.2); Carbon Dioxide 24 mmol/L (22-30); Chloride 104 mmol/L (98-107); Glucose 122 mg/dL (74-99); Non-African American GFR(CKD) >90 (>60 ml/min/1.73 sqM); Potassium 4.2 mmol/L (3.5-5.1); Sodium 137 mmol/L (137-145)
[2019-07-29] MEDS: INSULIN ASPART (NovoLOG) 100 UNIT/ML VIAL SQ SCH ×4 (09:16→20:00)
[2019-07-29] MEDS: AZITHROMYCIN 500 MG TAB PO SCH (09:16)
[2019-07-29] MEDS: FAMOTIDINE 20 MG TAB PO SCH ×2 (09:17→19:56)
[2019-07-29] MEDS: NYSTATIN 100,000 UNIT/ML SUSP 500,000 UNIT/5 ML CUP PO SCH ×4 (09:17→19:56)
[2019-07-29] MEDS: NICOTINE 21MG/24HR PATCH TRANSDERM SCH (09:17)
[2019-07-29] MEDS: FLUCONAZOLE 100 MG TAB PO SCH (09:17)
[2019-07-29] MEDS: HEPARIN SODIUM,PORCINE 5,000 UNIT/ML 1 ML VIAL SQ SCH ×3 (09:17→19:56)
[2019-07-29] MEDS: [UNRECOGNIZED DRUG - OTHER] PO SCH (09:20)
[2019-07-29 11:33] LABS: Glucose,Whole Blood 134 mg/dL (75-99)
[2019-07-29] MEDS: HYDROcodone/APAP 5-325MG 1 EACH TAB PO PRN (14:00)
--- NOTE | 2019-07-29 17:12 | P.PN ---
Subjective Progress Note Date: 07/29/19 Principal diagnosis: Acute exacerbation of COPD 07/27/2019 patient seen in follow-up on selective care unit, still quite dyspneic especially with exertion, still requiring high flow oxygen at 10 L, wearing BiPAP intermittently, this morning patient insisted to go to the bathroom to get cleaned up and he came significantly short of breath requiring a while to recover his breathing. He was advised to be assisted with his baths and avoid overexertion until his breathing has improved, is on IV steroids, antibiotics, and nebulized bronchodilators, minimally improved and patient is scheduled for bronchoscopy with BAL today 07/28/2019 Patient is seen and evaluated in room at bedside; continues to complain of some shortness of breath and dry cough Vital signs remained stable with a temperature of 97.9 and blood pressure 13 3/79; SpO2 92% on room air Lab work significant for hemoglobin of 9.8, white blood count 10.8 and cr eatinine of 0.7 Patient continues to remain on IV antibiotics for severe tracheobronchitis along with high flow nasal cannula oxygen; ID has evaluated patient and added Rocephin; continue current management 07/29/2019 Patient is seen and evaluated in room with duane at bedside; wants to be discharged home; patient discussed with nursing staff and has been requesting IV morphine and Ativan [id number]; we will discontinue morphine and Ativan and start patient on [place] 5 mg every 6 hours when necessary for pain control; patient remains afebrile and saturating above 92% on 4 L; IDs following and await cultures on bronchoalveolar lavage for final antibiotic recommendations Objective - Vital Signs Vital signs: Vital Signs Temp 97.8 F 07/29/19 05:02 Pulse 80 07/29/19 11:41 Resp 16 07/29/19 05:02 BP 140/71 07/29/19 05:02 Pulse Ox 92 L 07/29/19 05:02 Intake & Output 07/28/19 07/29/19 07/29/19 18:59 06:59 18:59 Intake Total 120 1200 Output Total 600 Balance 120 600 Intake: Oral 120 1200 Output: Urine 600 Other: Voiding Method Urinal # Voids 1 1 - Exam GENERAL EXAM: Alert, very pleasant, thin 49-year-old white male, looks fatigued, very dyspneic with any exertion on today's exam, currently on 10 L per high flow oxygen and BiPAP support with pressures of 12/5, and FiO2 of 50% intermittently HEAD: Normocephalic/atraumatic. EYES: Normal reaction of pupils, equal size. Conjunctiva pink, sclera white. NOSE: Clear with pink turbinates. THROAT: No erythema or exudates. NECK: No masses, no JVD, no thyroid enlargement, no adenopathy. CHEST: No chest wall deformity. Symmetrical expansion. LUNGS: Equal air entry with diffuse wheezing , congested, and less bronchospastic on today's exam CVS: Regular rate and rhythm, normal S1 and S2, no gallops, no murmurs, no rubs ABDOMEN: Soft, nontender. No hepatosplenomegaly, normal bowel sounds, no guarding or rigidity. EXTREMITIES: No clubbing, no edema, no cyanosis, 2+ pulses and upper and lower extremities. MUSCULOSKELETAL: Muscle strength and tone normal. - Labs CBC & Chem 7: 07/29/19 06:30 07/29/19 06:30 Labs: Abnormal Lab Results - Last 24 Hours (Table) 07/28/19 07/28/19 07/29/19 Range/Units 16:34 20:20 06:30 WBC 3.6 L (3.8-10.6) k/uL RBC 3.56 L (4.30-5.90) m/uL Hgb 10.7 L (13.0-17.5) gm/dL Hct 32.3 L (39.0-53.0) % RDW 15.9 H (11.5-15.5) % Lymphocytes # 0.2 L (1.0-4.8) k/uL BUN (9-20) mg/dL Glucose (74-99) mg/dL POC Glucose (mg/dL) 124 H 158 H (75-99) mg/dL 07/29/19 07/29/19 07/29/19 Range/Units 06:30 07:13 11:31 WBC (3.8-10.6) k/uL RBC (4.30-5.90) m/uL Hgb (13.0-17.5) gm/dL Hct (39.0-53.0) % RDW (11.5-15.5) % Lymphocytes # (1.0-4.8) k/uL BUN 22 H (9-20) mg/dL Glucose 122 H (74-99) mg/dL POC Glucose (mg/dL) 126 H 134 H (75-99) mg/dL Microbiology - Last 24 Hours (Table) 07/27/19 03:30 Gram Stain - Final Sputum Sputum Culture - Final 07/24/19 20:15 Blood Culture - Preliminary Blood No Growth after 96 hours Assessment and Plan Assessment: #1. Acute hypoxemic and hypercapnic respiratory failure related to acute exacerbation of chronic obstructive pulmonary disease and acute tracheal bronchitis #2. Recent hospitalization for the same patient was discharged home on July 13 2019 #3. History of HIV AIDS, with most recent CD4 count of 1 and a viral load of 2.4 million, has failed multiple treatment regimes #4. History of PCP pneumonia in 2015 diagnosed via bronchoscopic lavage #5. History of COPD not normally oxygen dependent #6. Extensive history of smoking #7. History of CVA/TIA with residual left-sided weakness #8. History of ADD/ADHD #9. History of CMV, and shingles infection #10. Chronic constipation Plan: Patient continues with dyspnea, especially exertional, remains on high flow oxygen, wearing BiPAP intermittently, still bronchospastic and congested although showing some improvement, his been nothing by mouth after midnight, we'll proceed with bronchoscopy with BAL this afternoon with Dr. Verde. we will continue all the same medical treatment
[2019-07-29 17:31] LABS: Glucose,Whole Blood 171 mg/dL (75-99)
[2019-07-29 19:58] LABS: Glucose,Whole Blood 207 mg/dL (75-99)
--- NOTE | 2019-07-30 00:52 | PN ---
PROGRESS NOTE DATE OF SERVICE: 07/29/2019 REASON FOR FOLLOWUP: 1. Chronic obstructive pulmonary disease. 2. Acute purulent tracheobronchitis. 3. HIV. INTERVAL HISTORY: The patient is currently afebrile, has been breathing more comfortably today and denies having any chest pain. Occasional cough. No vomiting. No diarrhea. EXAMINATION: Blood pressure 133/95 with a pulse of 71, temperature 98. He is 93% on room air. General description is a middle-aged male up in the bed in no distress. Respiratory system: Unlabored breathing with decreased breath sounds. No wheeze. Heart S1, S2. Regular rate and rhythm. ABDOMEN: Soft. No tenderness. LABS: Hemoglobin is 10.7, white count 3.6, BUN of 22, creatinine 0.89. His sputum cultures have been negative. Blood culture so far negative. DIAGNOSTIC IMPRESSION AND PLAN: 1. Patient admitted to the hospital with difficulty in breathing, low-grade fever, likely chronic obstructive pulmonary disease. The patient has tracheobronchitis. No significant pneumonia on the x-ray. Clinical responded with Rocephin and steroids and bronchodilator to continue. 2. Patient HIV. on discharge. 3. Continue supportive care. MMODL / IJN: [id number] /
[2019-07-30 04:07] VITALS: RESP 18
[2019-07-30] MEDS: methylPREDNISolone SOD SUCCI 125 MG/2 ML VIAL IV SCH ×2 (05:47→11:28)
[2019-07-30] MEDS: IPRATROPIUM-ALBUTEROL 3 ML NEB INHALATION SCH ×2 (06:57→10:49)
[2019-07-30] MEDS: FORMOTEROL FUMARATE 20 MCG/2 ML NEBU INHALATION SCH (06:57)
[2019-07-30] MEDS: BUDESONIDE 1 MG/2 ML NEBU INHALATION SCH (06:57)
[2019-07-30 07:05] LABS: Glucose,Whole Blood 187 mg/dL (75-99)
[2019-07-30 08:04] LABS: Anisocytosis Slight; Basophils # (A) 0.1 k/uL (0-0.2); Basophils % (A) 2 %; Eosinophils % (A) 0 %; HCT 34.3 % (39.0-53.0); HGB 11.4 gm/dL (13.0-17.5); Lymphocytes # (A) 0.1 k/uL (1.0-4.8); Lymphocytes % (A) 2 %; MCH 30.1 pg (25.0-35.0); MCHC 33.3 g/dL (31.0-37.0); MCV 90.5 fL (80.0-100.0); Mean Platelet Volume 7.7; Monocytes # (A) 0.2 k/uL (0-1.0); Monocytes % (A) 6 %; Neutrophils # (A) 3.6 k/uL (1.3-7.7); Neutrophils % (A) 89 %; Platelet Count 185 k/uL (150-450); RBC 3.79 m/uL (4.30-5.90); RDW 16.1 % (11.5-15.5); WBC 4.1 k/uL (3.8-10.6)
[2019-07-30] MEDS: INSULIN ASPART (NovoLOG) 100 UNIT/ML VIAL SQ SCH (08:09)
[2019-07-30] MEDS: HEPARIN SODIUM,PORCINE 5,000 UNIT/ML 1 ML VIAL SQ SCH (08:09)
[2019-07-30] MEDS: NICOTINE 21MG/24HR PATCH TRANSDERM SCH (08:09)
[2019-07-30] MEDS: NYSTATIN 100,000 UNIT/ML SUSP 500,000 UNIT/5 ML CUP PO SCH (08:10)
[2019-07-30] MEDS: FAMOTIDINE 20 MG TAB PO SCH (08:10)
[2019-07-30] MEDS: AZITHROMYCIN 500 MG TAB PO SCH (08:10)
[2019-07-30] MEDS: HYDROcodone/APAP 5-325MG 1 EACH TAB PO PRN (08:10)
[2019-07-30 08:12] LABS: African American GFR (CKD) >90 (>60 ml/min/1.73 sqM); Anion Gap 4 mmol/L; Blood Urea Nitrogen 22 mg/dL (9-20); Carbon Dioxide 28 mmol/L (22-30); Chloride 103 mmol/L (98-107); Glucose 127 mg/dL (74-99); Non-African American GFR(CKD) >90 (>60 ml/min/1.73 sqM); Potassium 4.3 mmol/L (3.5-5.1); Sodium 135 mmol/L (137-145)
[2019-07-30] MEDS: [UNRECOGNIZED DRUG - OTHER] PO SCH (08:16)
[2019-07-30] MEDS: SODIUM CHLORIDE 0.9% 1,000 ML IV SCH (09:18)
[2019-07-30 10:24] VITALS: BMI 18.1
[2019-07-30] MEDS ORDERED: BISACODYL 10 MG SUPP RECTAL STA (10:24)
[2019-07-30 11:19] LABS: Glucose,Whole Blood 183 mg/dL (75-99)
[2019-07-30] MEDS: FLUCONAZOLE 100 MG TAB PO SCH (11:23)
[2019-07-30 11:56] VITALS: TEMP 98.1
[2019-07-30 11:57] VITALS: BP 126/69; PULSE 72
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
--- NOTE | 2019-07-31 07:31 | PN ---
PROGRESS NOTE DATE OF SERVICE: 07/30/2019 REASON FOR FOLLOWUP: 1. Tracheobronchitis and questionable pneumonia. 2. HIV. INTERVAL HISTORY: The patient is currently afebrile. The patient has been breathing more comfortably. The patient denies having any chest pain. Minimal cough. No nausea, no vomiting, no abdominal pain, no diarrhea. PHYSICAL EXAMINATION: Blood pressure 126/69 with a pulse of 72, temperature 98.1. He is 95% on room air. General description is a middle-aged male up in the bed in no distress. RESPIRATORY SYSTEM: Unlabored breathing with decreased intensity breath sounds. No wheeze. HEART: Heart S1, S2. Regular rate and rhythm. ABDOMEN: Soft. No tenderness. LABS: Hemoglobin is 9.4, white count 4.1. BUN of 22, creatinine 0.77. His sputum cultures have been negative. Blood culture has been negative. DIAGNOSTIC IMPRESSION AND PLAN: 1. Patient admitted to the hospital with difficulty in breathing, which is likely multifactorial, did have a component of pneumonia. Overall improvement on Rocephin after a short course of oral therapy. 2. The patient has human immunodeficiency virus. He has been advised to resume his Biktarvy. The patient only has the medication at home and advised to bring medication to each hospital visit. Also advised on smoking cessation. Continue with supportive care. MMODL / IJN: [id number] /
== END 2019-07-30 13:35 | disposition home or self-care (01) | DRG 190 ==
LOC: EC 19:13 → 3SCARD 21:16 → 5NMEDONC 07-28 20:10
PROVIDERS: ADMIT Hospitalist; ATTEND Hospitalist
PROC: 5A09357 Assistance with Respiratory Ventilation, Less than 24 Consecutive Hours, Continuous Positive Airway Pressure (ICD-10-PCS; 2019-07-25)
PROC: 0B9J8ZX Drainage of Left Lower Lung Lobe, Via Natural or Artificial Opening Endoscopic, Diagnostic (ICD-10-PCS; principal; 2019-07-27 08:00)
PROC: 0B9F8ZX Drainage of Right Lower Lung Lobe, Via Natural or Artificial Opening Endoscopic, Diagnostic (ICD-10-PCS; principal; 2019-07-27 08:00)
PROC: 0B9H8ZX Drainage of Lung Lingula, Via Natural or Artificial Opening Endoscopic, Diagnostic (ICD-10-PCS; principal; 2019-07-27 08:00)
PROC: 0B9D8ZX Drainage of Right Middle Lung Lobe, Via Natural or Artificial Opening Endoscopic, Diagnostic (ICD-10-PCS; principal; 2019-07-27 08:00)
DX: J44.1 Chronic obstructive pulmonary disease with (acute) exacerbation (principal); J96.02 Acute respiratory failure with hypercapnia; J96.01 Acute respiratory failure with hypoxia; J98.11 Atelectasis; B20 Human immunodeficiency virus [HIV] disease; B37.0 Candidal stomatitis; E87.2 Acidosis; I69.354 Hemiplegia and hemiparesis following cerebral infarction affecting left non-dominant side; J44.0 Chronic obstructive pulmonary disease with (acute) lower respiratory infection; J20.9 Acute bronchitis, unspecified; F17.210 Nicotine dependence, cigarettes, uncomplicated; K59.09 Other constipation; E86.0 Dehydration; F41.9 Anxiety disorder, unspecified; F90.9 Attention-deficit hyperactivity disorder, unspecified type; Z82.49 Family history of ischemic heart disease and other diseases of the circulatory system; Z87.01 Personal history of pneumonia (recurrent); Z91.14 Patient's other noncompliance with medication regimen; Z91.19 Patient's noncompliance with other medical treatment and regimen; Z88.5 Allergy status to narcotic agent; Z88.2 Allergy status to sulfonamides; Z88.8 Allergy status to other drugs, medicaments and biological substances; G89.29 Other chronic pain; M54.9 Dorsalgia, unspecified; R00.0 Tachycardia, unspecified; Z86.19 Personal history of other infectious and parasitic diseases
CPT/HCPCS: 31624; 31645; 36415; 36600; 71045; 80048; 80053; 82805; 83735; 83880; 84484; 85025; 85610; 85730; 86360; 87040; 87070; 87116; 87205; 87206; 87252; 87496; 87498; 87502; 87529; 87634; 87798; 93005; 94640; 94660; 96361; 96374; 96375; 99285

== ENCOUNTER 2019-09-13 23:03 | Inpatient (IN) | payer MEDICARE, OTHER ==
[2019-09-13] MEDS ORDERED: ACETAMINOPHEN TAB 325 MG TAB PO STA (23:26)
[2019-09-13] MEDS ORDERED: SODIUM CHLORIDE 0.9% 1,000 ML IV ONE (23:27)
[2019-09-13] MEDS ORDERED: SODIUM CHLORIDE 0.9% 1,000 ML IV STA (23:27)
[2019-09-13 23:33] LABS: Basophils % (A) 0 %; Eosinophils % (A) 0 %; HCT 39.8 % (39.0-53.0); HGB 13.5 gm/dL (13.0-17.5); Lymphocytes # (A) 0.3 k/uL (1.0-4.8); Lymphocytes % (A) 4 %; MCH 29.6 pg (25.0-35.0); MCHC 33.8 g/dL (31.0-37.0); MCV 87.4 fL (80.0-100.0); Mean Platelet Volume 7.8; Monocytes # (A) 0.3 k/uL (0-1.0); Monocytes % (A) 4 %; Neutrophils # (A) 7.4 k/uL (1.3-7.7); Neutrophils % (A) 91 %; Platelet Count 228 k/uL (150-450); RBC 4.55 m/uL (4.30-5.90); RDW 14.9 % (11.5-15.5); WBC 8.1 k/uL (3.8-10.6)
[2019-09-13] MEDS ORDERED: MORPHINE SULFATE 4 MG/ML SYRINGE IV STA (23:35)
[2019-09-13 23:41] LABS: INR 0.9 (<1.2); Partial Thromboplastin Time 27.8 sec (22.0-30.0); Prothrombin Time 9.4 sec (9.0-12.0)
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
[2019-09-13 23:46] LABS: Albumin 3.9 g/dL (3.5-5.0); Calcium 8.8 mg/dL (8.4-10.2); Potassium 4.5 mmol/L (3.5-5.1); Total Bilirubin 0.4 mg/dL (0.2-1.3); Total Protein 6.4 g/dL (6.3-8.2)
--- NOTE | 2019-09-14 00:07 | XR ---
EXAMINATION TYPE: XR chest 1V DATE OF EXAM: 09/14/2019 COMPARISON: 07/28/2019 HISTORY: Short of breath TECHNIQUE: FINDINGS: There is a mild airspace infiltrate left lower lobe. The other lung valdez are fairly clear . There is no heart failure. Heart size is normal. There are chest leads. There are no hilar masses. Costophrenic angles are clear. IMPRESSION: There is some left lower lobe pneumonia that appears new compared to old exam. Normal hea rt.
[2019-09-14] MEDS ORDERED: LEVOFLOXACIN 750MG-D5W PMX 750 MG in DEXTROSE/WATER 1 150ML.BAG IVPB STA ×2 (00:15→01:06)
[2019-09-14] MEDS ORDERED: PIPERACILLIN-TAZOBACTAM 3.375 GM in SODIUM CHLORIDE 0.9% 100 ML IVPB STA ×2 (00:15→01:00)
[2019-09-14] MEDS ORDERED: PNEUMONIA PROTOCOL UTILIZED 1 EACH MISC PO PRN (01:06)
[2019-09-14] MEDS ORDERED: NICOTINE POLACRILEX 2 MG GUM BUCCAL PRN (01:20)
[2019-09-14] MEDS: HYDROcodone/APAP 5-325MG 1 EACH TAB PO PRN (02:20)
[2019-09-14] MEDS ORDERED: BUDESONIDE 1 MG/2 ML NEBU INHALATION SCH (08:00)
[2019-09-14] MEDS ORDERED: IPRATROPIUM-ALBUTEROL 3 ML NEB INHALATION SCH (08:00)
[2019-09-14] MEDS: PIPERACILLIN-TAZOBACTAM 3.375 GM in SODIUM CHLORIDE 0.9% 100 ML IVPB SCH ×3 (08:54→23:32)
[2019-09-14] MEDS: FAMOTIDINE 20 MG TAB PO SCH ×3 (08:54→21:07)
[2019-09-14] MEDS ORDERED: EMTRICITABINE/TENOFOVIR 200MG/300MG PO SCH (09:00)
[2019-09-14] MEDS ORDERED: RALTEGRAVIR POTASSIUM 400 MG TABLET PO SCH (09:00)
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
[2019-09-14 11:45] LABS: Ferritin 1504.6 ng/mL (22.0-322.0)
[2019-09-14] MEDS: ALBUTEROL INHALER 60 PUFF/8 GM INHALER (BULK) INHALATION SCH ×3 (11:50→19:05)
[2019-09-14] MEDS: TIOTROPIUM 18 MCG/PUFF INHALER INHALATION SCH (11:51)
[2019-09-14] MEDS: FLUTICASONE 220 MCG INHALER INHALATION SCH ×2 (11:51→19:05)
[2019-09-14] MEDS: HEPARIN SODIUM,PORCINE 5,000 UNIT/ML 1 ML VIAL SQ SCH ×2 (15:43→15:48)
[2019-09-15] MEDS: HEPARIN SODIUM,PORCINE 5,000 UNIT/ML 1 ML VIAL SQ SCH ×3 (00:13→15:05)
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
[2019-09-15 07:08] LABS: African American GFR (CKD) >90 (>60 ml/min/1.73 sqM); Anion Gap 5 mmol/L; Blood Urea Nitrogen 12 mg/dL (9-20); Calcium 8.1 mg/dL (8.4-10.2); Carbon Dioxide 22 mmol/L (22-30); Chloride 105 mmol/L (98-107); Glucose 80 mg/dL (74-99); Non-African American GFR(CKD) >90 (>60 ml/min/1.73 sqM); Potassium 4.5 mmol/L (3.5-5.1); Sodium 132 mmol/L (137-145)
[2019-09-15 07:27] LABS: HCT 30.7 % (39.0-53.0); MCH 29.6 pg (25.0-35.0); MCHC 33.1 g/dL (31.0-37.0); MCV 89.3 fL (80.0-100.0); Mean Platelet Volume 7.9; Platelet Count 183 k/uL (150-450); RBC 3.43 m/uL (4.30-5.90); RDW 14.9 % (11.5-15.5); WBC 4.3 k/uL (3.8-10.6)
[2019-09-15 07:29] LABS: HGB 10.2 gm/dL (13.0-17.5)
[2019-09-15] MEDS: FAMOTIDINE 20 MG TAB PO SCH ×3 (07:45→21:49)
[2019-09-15] MEDS: PIPERACILLIN-TAZOBACTAM 3.375 GM in SODIUM CHLORIDE 0.9% 100 ML IVPB SCH ×3 (08:04→23:48)
[2019-09-15] MEDS: ALBUTEROL INHALER 60 PUFF/8 GM INHALER (BULK) INHALATION SCH ×4 (08:06→19:55)
[2019-09-15] MEDS: FLUTICASONE 220 MCG INHALER INHALATION SCH ×2 (08:06→19:55)
[2019-09-15] MEDS: TIOTROPIUM 18 MCG/PUFF INHALER INHALATION SCH (08:07)
[2019-09-15] MEDS: HYDROcodone/APAP 5-325MG 1 EACH TAB PO PRN ×2 (08:09→15:11)
[2019-09-15] MEDS ORDERED: [UNRECOGNIZED DRUG - OTHER] PO SCH (09:00)
--- NOTE | 2019-09-15 13:33 | P.PN ---
Subjective 49-year-old with history of HIV and a CD4 count of 1 and very high viral load, ALLERGIC to Bactrim came in with compensative from shortness of breath cough patient was requiring high amount of oxygen presently not requiring an outpatient and patient is unable to bring up anything patient of does smoke but has not been smoking for last few days patient was having high-grade fevers chills, And that is severely weak and lethargic and patient is presently septic and found to have pneumonia in the left lower lobe and patient is also being tested for COVID-19 09/15/2019 Patient is feeling bit better today. Constitutional: Denied any fatigue denied any fever. Cardio vascular: denied any chest pain, palpitations Gastrointestinal denied any nausea vomiting Pulmonary: Denied any shortness of breath cough Neurologic denied any new focal deficits All inpatient medications were reviewed and appropriate changes in these medications as dictated in the interval history and assessment and plan. Objective - Vital Signs Vital signs: Vital Signs Temp 98.4 F 09/15/19 08:15 Pulse 87 09/15/19 08:15 Resp 18 09/15/19 08:15 BP 107/64 09/15/19 08:15 Pulse Ox 93 L 09/15/19 08:17 Intake & Output 09/14/19 09/15/19 09/15/19 18:59 06:59 18:59 Intake Total 1512 Output Total 775 575 400 Balance 737 -575 -400 Weight 54 kg 55.5 kg Intake: IV 1040 Sodium Chloride 0.9% 1, 1040 000 ml @ 130 mls/hr IV . Q7H42M [facility] Rx#:[id number] Oral 472 Output: Urine 775 575 400 Other: Voiding Method Urinal Urinal # Voids 1 1 1 - Exam PHYSICAL EXAMINATION: GENERAL: The patient is alert and oriented x3, looks septic and but lethargic along with mild respiratory distress. Well developed, well nourished. HEENT: Pupils are round and equally reacting to light. EOMI. No scleral icterus. No conjunctival pallor. Normocephalic, atraumatic. No pharyngeal erythema. No thyromegaly. CARDIOVASCULAR: S1 and S2 present. No murmurs, rubs, or gallops. PULMONARY: Chest is clear to auscultation, no wheezing or crackles. ABDOMEN: Soft, nontender, nondistended, normoactive bowel sounds. No palpable organomegaly. MUSCULOSKELETAL: No joint swelling or deformity. EXTREMITIES: No cyanosis, clubbing, or pedal edema. NEUROLOGICAL: Gross neurological examination did not reveal any focal deficits. SKIN: No rashes. - Labs CBC & Chem 7: 09/15/19 05:43 09/15/19 05:43 Labs: Abnormal Lab Results - Last 24 Hours (Table) 09/15/19 09/15/19 Range/Units 05:43 05:43 RBC 3.43 L (4.30-5.90) m/uL Hgb 10.2 L D (13.0-17.5) gm/dL Hct 30.7 L (39.0-53.0) % Sodium 132 L (137-145) mmol/L Calcium 8.1 L (8.4-10.2) mg/dL Microbiology - Last 24 Hours (Table) 09/14/19 23:24 Sputum Culture - Preliminary Sputum 09/13/19 23:11 Blood Culture - Preliminary Blood No Growth after 24 hours Assessment and Plan Plan: -Lobar pneumonia and severe sepsis from pneumonia patient will continue on IV fluids. Her present antibiotics that is Zosyn and the infectious disease was consulted patient is in a suppressed because of HIV with a very low CD4 count and high viral load as mentioned above patient is ALLERGIC to Bactrim and patient is noncompliant with his medications doesn't take his antiretroviral medications at home. -Acute hypoxic respiratory failure secondary to pneumonia - COPD without any significant exacerbation -Nicotine abuse: Counseling was provided -HIV/AIDS: Highly noncompliant with medication extensive counseling regarding this was provided
[2019-09-15] MEDS: NYSTATIN 100,000 UNIT/ML SUSP 500,000 UNIT/5 ML CUP PO SCH ×2 (17:21→23:50)
--- NOTE | 2019-09-16 01:56 | PN ---
PROGRESS NOTE DATE OF SERVICE: 09/15/2019. REASON FOR FOLLOWUP: 1. Pneumonia, possibly gram-negative. 2. HIV/AIDS. INTERVAL HISTORY: The patient is currently afebrile. The patient is breathing slightly comfortably. He continues to have cough and bringing up some sputum. No hemoptysis. No chest pain. No abdominal pain. No diarrhea. PHYSICAL EXAMINATION: Blood pressure 108/64 with a pulse of 84, temperature 99.4. He is 96% on room air. General description is a middle-aged male lying in bed in no distress. RESPIRATORY SYSTEM: Unlabored breathing. Decreased intensity of breath sounds. No wheeze. HEART: S1, S2. Regular rate and rhythm. ABDOMEN: Soft. No tenderness. LABS: Hemoglobin is 10.8, white count 4.3. BUN of 12, creatinine 0.97. DIAGNOSTIC IMPRESSION AND PLAN: 1. Patient admitted to the hospital with fever and respiratory symptoms, likely pneumonia, possible community acquired/gram-negative as the patient clinically responded to the Zosyn and Levaquin, which will be continued while waiting for the sputum culture to finalize. 2. Human immunodeficiency virus/acquired immunodeficiency syndrome in this patient who is not compliant with his medication. Apparently he did not take Biktarvy that was ordered last time. May need more close outpatient followup for his human immunodeficiency virus. Poor compliance remains to be an issue. MMODL / IJN: [id number] /
[2019-09-16] MEDS: FAMOTIDINE 20 MG TAB PO SCH ×4 (07:38→21:52)
[2019-09-16] MEDS: TIOTROPIUM 18 MCG/PUFF INHALER INHALATION SCH (07:44)
[2019-09-16] MEDS: ALBUTEROL INHALER 60 PUFF/8 GM INHALER (BULK) INHALATION SCH ×4 (07:44→20:31)
[2019-09-16] MEDS: FLUTICASONE 220 MCG INHALER INHALATION SCH ×2 (07:44→20:32)
[2019-09-16] MEDS: HEPARIN SODIUM,PORCINE 5,000 UNIT/ML 1 ML VIAL SQ SCH ×3 (07:53→15:01)
[2019-09-16] MEDS: NYSTATIN 100,000 UNIT/ML SUSP 500,000 UNIT/5 ML CUP PO SCH ×2 (09:15→15:01)
[2019-09-16] MEDS: PIPERACILLIN-TAZOBACTAM 3.375 GM in SODIUM CHLORIDE 0.9% 100 ML IVPB SCH ×2 (09:15→15:39)
[2019-09-16] MEDS: HYDROcodone/APAP 5-325MG 1 EACH TAB PO PRN ×3 (09:16→21:59)
--- NOTE | 2019-09-16 10:16 | P.PN ---
Subjective 49-year-old with history of HIV and a CD4 count of 1 and very high viral load, ALLERGIC to Bactrim came in with compensative from shortness of breath cough patient was requiring high amount of oxygen presently not requiring an outpatient and patient is unable to bring up anything patient of does smoke but has not been smoking for last few days patient was having high-grade fevers chills, And that is severely weak and lethargic and patient is presently septic and found to have pneumonia in the left lower lobe and patient is also being tested for COVID-19 09/15/2019 Patient is feeling bit better today. 09/16/2019 Patient looks better, but he still complaining has some shortness of breath patient is still requiring oxygen. Constitutional: Denied any fatigue denied any fever. Cardio vascular: denied any chest pain, palpitations Gastrointestinal denied any nausea vomiting Pulmonary: As mentioned in the interval history Neurologic denied any new focal deficits All inpatient medications were reviewed and appropriate changes in these medications as dictated in the interval history and assessment and plan. Objective - Vital Signs Vital signs: Vital Signs Temp 98.4 F 09/16/19 09:22 Pulse 86 09/16/19 08:00 Resp 18 09/16/19 09:22 BP 106/64 09/16/19 09:22 Pulse Ox 94 L 09/16/19 09:22 Intake & Output 09/15/19 09/16/19 09/16/19 18:59 06:59 18:59 Intake Total 1718 562 472 Output Total 400 625 350 Balance 1318 -63 122 Intake: IV 910 Sodium Chloride 0.9% 1, 910 000 ml @ 130 mls/hr IV . Q7H42M [facility] Rx#:[id number] Intake, IV Titration 100 100 Amount Piperacillin-Tazobactam 3 100 100 .375 gm In Sodium Chloride 0.9% 100 ml @ 25 mls/hr IVPB Q8HR [facility] Rx# :[id number] Oral 708 462 472 Output: Urine 400 625 350 Other: Voiding Method Urinal # Voids 1 1 - Exam PHYSICAL EXAMINATION: GENERAL: The patient is alert and oriented x3, looks septic and but lethargic along with mild respiratory distress. Well developed, well nourished. HEENT: Pupils are round and equally reacting to light. EOMI. No scleral icterus. No conjunctival pallor. Normocephalic, atraumatic. No pharyngeal erythema. No thyromegaly. CARDIOVASCULAR: S1 and S2 present. No murmurs, rubs, or gallops. PULMONARY: Chest is clear to auscultation, no wheezing or crackles. ABDOMEN: Soft, nontender, nondistended, normoactive bowel sounds. No palpable organomegaly. MUSCULOSKELETAL: No joint swelling or deformity. EXTREMITIES: No cyanosis, clubbing, or pedal edema. NEUROLOGICAL: Gross neurological examination did not reveal any focal deficits. SKIN: No rashes. - Labs CBC & Chem 7: 09/15/19 05:43 09/15/19 05:43 Labs: Abnormal Lab Results - Last 24 Hours (Table) 09/16/19 Range/Units 06:00 D-Dimer 0.74 H (<0.60) mg/L FEU Microbiology - Last 24 Hours (Table) 09/14/19 23:24 Gram Stain - Preliminary Sputum Sputum Culture - Preliminary Susie albicans 09/13/19 23:11 Blood Culture - Preliminary Blood No Growth after 48 hours Assessment and Plan Plan: -Lobar pneumonia and severe sepsis from pneumonia patient will continue on IV fluids. Her present antibiotics that is Zosyn and the infectious disease was consulted patient is in a suppressed because of HIV with a very low CD4 count and high viral load as mentioned above patient is ALLERGIC to Bactrim and patient is noncompliant with his medications doesn't take his antiretroviral medications at home. -Oral thrush secondary to immunosuppression and the antibiotics: Patient will be started on flucanazole patient the proper sulconazole and he may have fungal esophagitis as well nystatin will be discontinued -Acute hypoxic respiratory failure secondary to pneumonia , improving still requiring 2 L of oxygen - COPD without any significant exacerbation -Nicotine abuse: Counseling was provided -HIV/AIDS: Highly noncompliant with medication extensive counseling regarding this was provided
[2019-09-16] MEDS: FLUCONAZOLE 100 MG TAB PO SCH (10:47)
[2019-09-16 11:33] VITALS: BMI 16.6
[2019-09-16] MEDS ORDERED: MORPHINE SULFATE 2 MG/ML SYRINGE IVP STA (17:13)
[2019-09-16] MEDS: ZOLPIDEM 5 MG TAB PO PRN (21:48)
[2019-09-17] MEDS: PIPERACILLIN-TAZOBACTAM 3.375 GM in SODIUM CHLORIDE 0.9% 100 ML IVPB SCH ×3 (00:44→16:46)
[2019-09-17] MEDS: HEPARIN SODIUM,PORCINE 5,000 UNIT/ML 1 ML VIAL SQ SCH ×4 (00:48→23:55)
--- NOTE | 2019-09-17 05:26 | PN ---
PROGRESS NOTE DATE OF SERVICE: 09/16/2019 REASON FOR FOLLOWUP: 1. Pneumonia, likely community-acquired. 2. HIV. INTERVAL HISTORY: The patient is currently afebrile, has been breathing comfortably. Patient denies having any chest pain. Still having some cough with sputum. No hemoptysis. No nausea, no vomiting. No abdominal pain. No diarrhea. PHYSICAL EXAMINATION: Blood pressure 115/69 with a pulse of 78, temperature 99.3. He is 98% on 1 L nasal cannula. General description is a middle-aged male lying in bed in no distress. RESPIRATORY SYSTEM: Unlabored breathing, decreased intensity in breath sounds. No wheeze. HEART: S1, S2. Regular rate and rhythm. ABDOMEN: Soft, no tenderness. LABS: White count is 10.2, white count 4.3, BUN of 12, creatinine 0.97. LDH is normal. Sputum with Susie albicans. Blood culture negative. DIAGNOSTIC IMPRESSION AND PLAN: 1. Patient admitted to the hospital with fever, source likely pneumonia likely community-acquired as the patient clinically responding to Zosyn and Levaquin which will continue to finish therapy with oral antibiotics. 2. HIV. Unfortunately, patient noncompliant with his medication and will need to be addressed in outpatient setting. Continue supportive care. MMODL / IJN: [id number] /
[2019-09-17] MEDS: ALBUTEROL INHALER 60 PUFF/8 GM INHALER (BULK) INHALATION SCH ×2 (07:49→11:36)
[2019-09-17] MEDS: FLUTICASONE 220 MCG INHALER INHALATION SCH (07:49)
[2019-09-17] MEDS: TIOTROPIUM 18 MCG/PUFF INHALER INHALATION SCH (07:49)
[2019-09-17] MEDS: FAMOTIDINE 20 MG TAB PO SCH ×2 (08:34→21:36)
[2019-09-17] MEDS: FLUCONAZOLE 100 MG TAB PO SCH (09:04)
[2019-09-17] MEDS: HYDROcodone/APAP 5-325MG 1 EACH TAB PO PRN ×2 (09:05→21:42)
[2019-09-17 10:43] LABS: Ferritin 1171.1 ng/mL (22.0-322.0)
[2019-09-17] MEDS ORDERED: ALBUTEROL NEBULIZED 2.5 MG/3 ML INHALATION SCH ×2 (12:00→16:00)
[2019-09-17] MEDS: BUDESONIDE 1 MG/2 ML NEBU INHALATION SCH (20:23)
[2019-09-17] MEDS: IPRATROPIUM-ALBUTEROL 3 ML NEB INHALATION SCH (20:23)
[2019-09-17] MEDS: ZOLPIDEM 5 MG TAB PO PRN (21:42)
--- NOTE | 2019-09-17 23:20 | PN ---
PROGRESS NOTE DATE OF SERVICE: 09/17/2019 REASON FOR FOLLOWUP: 1. Pneumonia. 2. HIV. INTERVAL HISTORY: The patient is currently afebrile, has been breathing comfortably. Denies having any chest pain. Still having a cough. No sputum. No abdominal pain or diarrhea. PHYSICAL EXAMINATION: Blood pressure 120/79 with a pulse of 83. Temperature is 97.7. He is 97% on room air. General description is a middle-aged male lying in bed in no distress. Respiratory system: Unlabored breathing, decreased breath sounds in the bases. No wheeze. Heart S1, S2. Regular rate and rhythm. Abdomen soft, no tenderness. LABS: No new labs have been obtained today. Sputum with Susie albicans. DIAGNOSTIC IMPRESSION AND PLAN: 1. Patient presented to the hospital with fever and pneumonia likely community- acquired. Sputum has been negative for any resistant pathogen. Plan to finish therapy with oral Ceftin. 2. HIV. Medication will be considered for restarting in the outpatient setting. Have the patient followup in the office. MMODL / IJN: [id number] /
[2019-09-18] MEDS: PIPERACILLIN-TAZOBACTAM 3.375 GM in SODIUM CHLORIDE 0.9% 100 ML IVPB SCH ×2 (00:37→09:24)
[2019-09-18 05:06] VITALS: BP 99/64; RESP 16; TEMP 97.9
[2019-09-18] MEDS: IPRATROPIUM-ALBUTEROL 3 ML NEB INHALATION SCH ×2 (08:06→12:03)
[2019-09-18] MEDS: BUDESONIDE 1 MG/2 ML NEBU INHALATION SCH (08:06)
[2019-09-18] MEDS: HEPARIN SODIUM,PORCINE 5,000 UNIT/ML 1 ML VIAL SQ SCH ×3 (09:24→10:59)
[2019-09-18] MEDS: FLUCONAZOLE 100 MG TAB PO SCH (09:24)
[2019-09-18] MEDS: FAMOTIDINE 20 MG TAB PO SCH ×2 (09:24→10:59)
--- NOTE | 2019-09-18 11:19 | P.PN ---
Subjective Progress Note Date: 09/17/19 49-year-old with history of HIV and a CD4 count of 1 and very high viral load, ALLERGIC to Bactrim came in with compensative from shortness of breath cough patient was requiring high amount of oxygen presently not requiring an outpatient and patient is unable to bring up anything patient of does smoke but has not been smoking for last few days patient was having high-grade fevers chills, And that is severely weak and lethargic and patient is presently septic and found to have pneumonia in the left lower lobe and patient is also being tested for COVID-19 09/15/2019 Patient is feeling bit better today. 09/16/2019 Patient looks better, but he still complaining has some shortness of breath patient is still requiring oxygen. 09/17/2019 Patient is Covid 19 negative doing better but still bit short of breath will monitor him 1 more day possibly of discharge tomorrow Constitutional: Denied any fatigue denied any fever. Cardio vascular: denied any chest pain, palpitations Gastrointestinal denied any nausea vomiting Pulmonary: As mentioned in the interval history Neurologic denied any new focal deficits All inpatient medications were reviewed and appropriate changes in these medications as dictated in the interval history and assessment and plan. Objective - Vital Signs Vital signs: Vital Signs Temp 97.9 F 09/18/19 05:00 Pulse 140 H 09/18/19 11:09 Resp 16 09/18/19 05:00 BP 99/64 09/18/19 05:00 Pulse Ox 97 09/18/19 11:09 Intake & Output 09/17/19 09/18/19 09/18/19 18:59 06:59 18:59 Intake Total 680 700 Output Total 1400 400 Balance 680 -700 -400 Intake: Intake, IV Titration 100 100 Amount Piperacillin-Tazobactam 3 100 100 .375 gm In Sodium Chloride 0.9% 100 ml @ 25 mls/hr IVPB Q8HR [facility] Rx# :[id number] Oral 580 600 Output: Urine 1400 400 Other: Voiding Method Urinal # Voids 2 1 - Exam PHYSICAL EXAMINATION: GENERAL: The patient is alert and oriented x3, looks septic and but lethargic along with mild respiratory distress. Well developed, well nourished. HEENT: Pupils are round and equally reacting to light. EOMI. No scleral icterus. No conjunctival pallor. Normocephalic, atraumatic. No pharyngeal erythema. No thyromegaly. CARDIOVASCULAR: S1 and S2 present. No murmurs, rubs, or gallops. PULMONARY: Chest is clear to auscultation, no wheezing or crackles. ABDOMEN: Soft, nontender, nondistended, normoactive bowel sounds. No palpable organomegaly. MUSCULOSKELETAL: No joint swelling or deformity. EXTREMITIES: No cyanosis, clubbing, or pedal edema. NEUROLOGICAL: Gross neurological examination did not reveal any focal deficits. SKIN: No rashes. - Labs CBC & Chem 7: 09/15/19 05:43 09/15/19 05:43 Labs: Microbiology - Last 24 Hours (Table) 09/13/19 23:11 Blood Culture - Preliminary Blood No Growth after 96 hours 09/14/19 23:24 Gram Stain - Final Sputum Sputum Culture - Final Susie albicans Assessment and Plan Plan: -Lobar pneumonia and severe sepsis from pneumonia patient will continue on IV fluids. Her present antibiotics that is Zosyn and the infectious disease was consulted patient is in a suppressed because of HIV with a very low CD4 count and high viral load as mentioned above patient is ALLERGIC to Bactrim and patient is noncompliant with his medications doesn't take his antiretroviral m edications at home. -Oral thrush secondary to immunosuppression and the antibiotics: Patient will be started on flucanazole patient the proper sulconazole and he may have fungal esophagitis as well nystatin will be discontinued -Acute hypoxic respiratory failure secondary to pneumonia , improving still requiring 2 L of oxygen - COPD without any significant exacerbation -Nicotine abuse: Counseling was provided -HIV/AIDS: Highly noncompliant with medication extensive counseling regarding this was provided
--- NOTE | 2019-09-18 11:22 | P.DS ---
Providers Date of admission: 09/14/19 01:06 Attending physician: Chuck Jones Consults: 09/14/19 08:08 Consult Physician Urgent Consulting Provider: Diana Chery Consult Reason/Comments: R/O COVID Do you want consulting provider notified?: Yes Primary care physician: Stated None Hospital Course: 49-year-old with history of HIV and a CD4 count of 1 and very high viral load, ALLERGIC to Bactrim came in with compensative from shortness of breath cough patient was requiring high amount of oxygen presently not requiring an outpatient and patient is unable to bring up anything patient of does smoke but has not been smoking for last few days patient was having high-grade fevers chills, And that is severely weak and lethargic and patient is presently septic and found to have pneumonia in the left lower lobe and patient is also being tested for COVID-19 09/15/2019 Patient is feeling bit better today. 09/16/2019 Patient looks better, but he still complaining has some shortness of breath patient is still requiring oxygen. 09/18/2019 Patient is still coming of shortness of breath but saturated at 99% drop on ambulation without any oxygen. Patient doesn't follow any recommendations patient doesn't take his medications here patient has a HIV with CD4 count of 1 doesn't the follow the recommendations doesn't follow with infectious disease extensive counseling regarding this was provided patient with became be tachycardic upon ambulation I'll give him a dose of metoprolol as he is not letting me do any further workup for that. PHYSICAL EXAMINATION: GENERAL: The patient is alert and oriented x3, looks septic and but lethargic along with mild respiratory distress. Well developed, well nourished. HEENT: Pupils are round and equally reacting to light. EOMI. No scleral icterus. No conjunctival pallor. Normocephalic, atraumatic. No pharyngeal erythema. No thyromegaly. CARDIOVASCULAR: S1 and S2 present. No murmurs, rubs, or gallops. PULMONARY: Chest is clear to auscultation, no wheezing or crackles. ABDOMEN: Soft, nontender, nondistended, normoactive bowel sounds. No palpable organomegaly. MUSCULOSKELETAL: No joint swelling or deformity. EXTREMITIES: No cyanosis, clubbing, or pedal edema. NEUROLOGICAL: Gross neurological examination did not reveal any focal deficits. SKIN: No rashes. Assessment and Plan Plan: -Lobar pneumonia and severe sepsis from pneumonia patient patient will be discharged on Ceftin patient is in a suppressed because of HIV with a very low CD4 count and high viral load as mentioned above patient is ALLERGIC to Bactrim and patient is noncompliant with his medications doesn't take his antiretroviral medications at home. -Oral thrush secondary to immunosuppression and the antibiotics: Will be dischar ged on flucanazole for 7 days -Acute hypoxic respiratory failure secondary to pneumonia , improved and patient is not requiring any oxygen saturating well upon ablation - COPD without any significant exacerbation -Nicotine abuse: Counseling was provided -HIV/AIDS: Highly noncompliant with medication extensive counseling regarding this was provided Patient Condition at Discharge: Serious Plan - Discharge Summary Discharge Rx Participant: No New Discharge Prescriptions: New Cefuroxime Axetil [Ceftin] 500 mg PO BID 7 Days #14 tab Albuterol Inhaler [Ventolin Hfa Inhaler] 1 - 2 puff INHALATION Q6HR PRN #1 inhaler PRN Reason: Shortness Of Breath Or Wheezing Fluticasone/Salmeterol [Advair 250-50 Diskus] 1 inhalation PO BID #1 inhaler Metoprolol Tartrate [Lopressor] 25 mg PO BID #60 tablet Discharge Medication List Albuterol Inhaler [Ventolin Hfa Inhaler] 1 - 2 puff INHALATION Q6HR PRN #1 inhaler 09/18/19 [Rx] Cefuroxime Axetil [Ceftin] 500 mg PO BID 7 Days #14 tab 09/18/19 [Rx] Fluticasone/Salmeterol [Advair 250-50 Diskus] 1 inhalation PO BID #1 inhaler 0 09/18/19 [Rx] Metoprolol Tartrate [Lopressor] 25 mg PO BID #60 tablet 09/18/19 [Rx] Follow up Appointment(s)/Referral(s): Omkar Delatorre MD [REFERRING] - 1 Week Diana Chery MD [STAFF PHYSICIAN] - 1 Week Discharge Disposition: HOME SELF-CARE
[2019-09-18] MEDS ORDERED: METOPROLOL TARTRATE 25 MG TAB PO SCH (11:30)
[2019-09-18 12:07] VITALS: PULSE 85
--- NOTE | 2019-09-18 14:52 | PN ---
PROGRESS NOTE DATE OF SERVICE: 09/18/2019 REASON FOR FOLLOWUP: Pneumonia and HIV. INTERVAL HISTORY: The patient is currently afebrile. The patient has been breathing comfortably on room air. Denies having any chest pain. Occasional cough. No nausea, vomiting, abdominal pain or diarrhea. PHYSICAL EXAMINATION: Blood pressure 99/54, pulse of 73, temperature 97.9. He is 96% on room air. General description is a middle-aged male, lying in bed in no distress. RESPIRATORY SYSTEM: Unlabored breathing, clear to auscultation anteriorly. HEART: S1, S2. Regular rate and rhythm. ABDOMEN: Soft, no tenderness. LABS: No new labs have been obtained today. DIAGNOSTIC IMPRESSION AND PLAN: Patient with an admit to the hospital with pneumonia likely community-acquired. Sputum has been negative for resistant pathogen. Finish therapy with oral Ceftin and continue with supportive care. MMODL / IJN: [id number] /
--- NOTE | 2019-09-20 09:37 | CDI ---
Documentation Clarification Form Date: 09/20/19 From: Kay Sadler Phone: If you have a question about this query, please contact Lidia Berman, Filtration Plant Operator at [phone] between 8am and 5pm. Admit Date: 09/14/19 Discharge Date: 09/18/19 Patient Name: YUE DUBOIS Visit Number: [id number] ATTENTION: The Clinical Documentation Specialists (CDI) and [facility] Coding Staff appreciate your assistance in clarifying documentation. Please respond to the clarification below the line at the bottom and electronically sign. The CDI & [facility] Coding staff will review the response and follow-up if needed. Please note: Queries are made part of the Legal Health Record. If you have any questions, please contact the author of this message via ITS. Dear Dr. Star Lawrence, HIV/AIDS was documented in the ED note, H&P, consult, PNs and DS. 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 CD4 Count: 1 and very high viral load Other lab values: WBC-8.1, Neutrophil-91, lactic acid-1.2, CRP-67.0, Procalcitonin-0.21, T-103.9, P-136, R-28, BP-126/83, O2 sat-93 Treatment:IV Rocephin, IV fluids, IV Levaquin, IV Zoysn, neubilizer In your professional opinion, can you please clarify if the above clinical indicators and treatment signify one of the following conditions? HIV, asymptomatic without a related condition AIDS, with related infection, causing sepsis and pneumonia Unable to determine Other, please specify Unable to determine MTDD
--- NOTE | 2019-09-20 09:46 | CDI ---
Documentation Clarification Form Date: 09/20/19 From: Kay Sadler Phone: If you have a question about this query, please contact Lidia Berman, Lead Sustainability Specialist at [phone] between 8am and 5pm. Admit Date: 09/14/19 Discharge Date: 09/18/19 Patient Name: YUE DUBOIS Visit Number: [id number] ATTENTION: The Clinical Documentation Specialists (CDI) and [facility] Coding Staff appreciate your assistance in clarifying documentation. Please respond to the clarification below the line at the bottom and electronically sign. The CDI & [facility] Coding staff will review the response and follow-up if needed. Please note: Queries are made part of the Legal Health Record. If you have any questions, please contact the author of this message via ITS. Dear Dr. Star Lawrence, Lobar pneumonia was documented in the H&P, PNs 09/14, 09/15 & 09/17 and DS. 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, seizures, head injuries Clinical Indicators: 49-year-old with history of HIV and a CD4 count of 1 and very high viral load, came in with compensative from shortness of breath cough patient was requiring high amount of oxygen presently not requiring an outpatient and patient is unable to bring up anything patient of does smoke but has not been smoking for last few days patient was having high-grade fevers chills, Vital signs: T-103.9, P-136, R-28, BP-126/83, O2 sat-93 WBC/Left shift: 8.1 - 91 COVID-19: NEGATIVE X-ray: There is some left lower lobe pneumonia that appears new compared to old exam.Normal heart. Treatment: IV Rocephin, IV fluids, IV Levaquin, IV Zoysn, neubilizer O2 In order to capture the severity of condition, please clarify if the condition signifies and you are treating for: Bacterial Pneumonia, specify causal organism (if known) Gram Negative Pneumonia Due to Strep Due to Staph Due to E. Coli Other bacteria (please specify) Viral Pneumonia, specify casual organism (if known) Other, please specify Unable to determine Unable to determine MTDD
== END 2019-09-18 15:37 | disposition home or self-care (01) | DRG 974 ==
LOC: EC 23:03 → 3SCARD 09-14 01:06 → 5NMEDONC 09-17 10:55
PROVIDERS: ADMIT Hospitalist; ATTEND Hospitalist
DX: A41.9 Sepsis, unspecified organism (principal); J96.01 Acute respiratory failure with hypoxia; B20 Human immunodeficiency virus [HIV] disease; J18.1 Lobar pneumonia, unspecified organism; I69.354 Hemiplegia and hemiparesis following cerebral infarction affecting left non-dominant side; B37.0 Candidal stomatitis; R65.20 Severe sepsis without septic shock; Z20.828 Contact with and (suspected) exposure to other viral communicable diseases; T37.5X6A Underdosing of antiviral drugs, initial encounter; F90.9 Attention-deficit hyperactivity disorder, unspecified type; J44.9 Chronic obstructive pulmonary disease, unspecified; F17.210 Nicotine dependence, cigarettes, uncomplicated; Z71.6 Tobacco abuse counseling; Z91.128 Patient's intentional underdosing of medication regimen for other reason; Z79.51 Long term (current) use of inhaled steroids; Z79.899 Other long term (current) drug therapy; Y63.6 Underdosing and nonadministration of necessary drug, medicament or biological substance; Z87.01 Personal history of pneumonia (recurrent); Z87.820 Personal history of traumatic brain injury; Z98.41 Cataract extraction status, right eye; Z98.890 Other specified postprocedural states; Z86.19 Personal history of other infectious and parasitic diseases; Z86.69 Personal history of other diseases of the nervous system and sense organs; Z87.19 Personal history of other diseases of the digestive system; Z88.5 Allergy status to narcotic agent; Z88.2 Allergy status to sulfonamides; Z88.8 Allergy status to other drugs, medicaments and biological substances; Z82.49 Family history of ischemic heart disease and other diseases of the circulatory system
CPT/HCPCS: 36415; 71045; 80048; 80053; 82728; 83605; 83615; 83880; 84145; 84484; 85025; 85027; 85379; 85610; 85730; 86140; 87040; 87070; 87205; 87502; 93005; 94640; 96361; 96365; 96375; 99285

== ENCOUNTER 2019-10-27 15:24 | Inpatient (IN) | payer MEDICARE, OTHER ==
[2019-10-27] MEDS ORDERED: methylPREDNISolone SOD SUCCI 125 MG/2 ML VIAL IV STA (15:46)
[2019-10-27] MEDS ORDERED: ALBUTEROL HFA INHALER INHALATION STA (15:46)
[2019-10-27] MEDS ORDERED: VANCOMYCIN IV PER PHARMACY 1 EACH MISC MISCELLANE PRN (16:00)
[2019-10-27] MEDS ORDERED: CEFEPIME 2 GM in SODIUM CHLORIDE 0.9% 100 ML IVPB STA (16:00)
[2019-10-27] MEDS ORDERED: PENTAMIDINE 300 MG IV STA (16:05)
[2019-10-27] MEDS ORDERED: VANCOMYCIN 1,000 MG in SODIUM CHLORIDE 0.9% 250 ML IVPB STA (16:06)
[2019-10-27] MEDS ORDERED: HYDROmorphone 1 MG/ML 1 ML SYRINGE IVP STA (16:07)
[2019-10-27] MEDS ORDERED: SODIUM CHLORIDE 0.9% 1,000 ML IV ONE (16:07)
[2019-10-27 16:09] LABS: Basophils % (A) 1 %; Eosinophils % (A) 1 %; HCT 35.3 % (39.0-53.0); HGB 11.7 gm/dL (13.0-17.5); Lymphocytes # (A) 0.2 k/uL (1.0-4.8); Lymphocytes % (A) 4 %; MCH 29.6 pg (25.0-35.0); MCHC 33.2 g/dL (31.0-37.0); MCV 89.2 fL (80.0-100.0); Mean Platelet Volume 7.8; Monocytes # (A) 0.2 k/uL (0-1.0); Monocytes % (A) 4 %; Neutrophils # (A) 4.8 k/uL (1.3-7.7); Neutrophils % (A) 88 %; Platelet Count 205 k/uL (150-450); RBC 3.96 m/uL (4.30-5.90); RDW 14.7 % (11.5-15.5); WBC 5.4 k/uL (3.8-10.6)
[2019-10-27] MEDS ORDERED: WATER IV STA ×2 (16:10)
[2019-10-27] MEDS ORDERED: PENTAMIDINE IV STA ×2 (16:10)
[2019-10-27] MEDS ORDERED: DEXTROSE 5% IV STA ×2 (16:10)
[2019-10-27 16:18] LABS: ALT 23 U/L (4-49); AST 34 U/L (17-59); African American GFR (CKD) >90 (>60 ml/min/1.73 sqM); Albumin 3.9 g/dL (3.5-5.0); Alkaline Phosphatase 66 U/L (38-126); Anion Gap 10 mmol/L; Blood Urea Nitrogen 15 mg/dL (9-20); Carbon Dioxide 23 mmol/L (22-30); Chloride 102 mmol/L (98-107); Glucose 97 mg/dL (74-99); INR 0.9 (<1.2); Non-African American GFR(CKD) >90 (>60 ml/min/1.73 sqM); Partial Thromboplastin Time 25.3 sec (22.0-30.0); Potassium 4.7 mmol/L (3.5-5.1); Prothrombin Time 9.3 sec (9.0-12.0); Sodium 135 mmol/L (137-145); Total Bilirubin 0.4 mg/dL (0.2-1.3); Total Protein 6.5 g/dL (6.3-8.2)
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
--- NOTE | 2019-10-27 16:53 | XR ---
EXAMINATION TYPE: XR chest 1V portable DATE OF EXAM: 10/27/2019 COMPARISON: 09/13/2019 HISTORY: fever cough TECHNIQUE: Single frontal view of the chest is obtained. FINDINGS: Increased density right middle lobe may reflect developing infiltrate. Correlate clinically. Hyperinf lation compatible with COPD. The cardiac silhouette size is within normal limits. The osseous structures are intact. IMPRESSION: 1. Increased density right middle lobe may reflect developing infiltrate. Correlate clinically.
[2019-10-27] MEDS ORDERED: PNEUMONIA PROTOCOL UTILIZED 1 EACH MISC PO PRN (17:17)
[2019-10-27] MEDS ORDERED: NALOXONE 0.4 MG/ML 1 ML VIAL IV PRN (17:20)
[2019-10-27] MEDS ORDERED: ACETAMINOPHEN TAB 325 MG TAB PO PRN (17:20)
[2019-10-27] MEDS ORDERED: IPRATROPIUM-ALBUTEROL 3 ML NEB INHALATION STA (17:29)
[2019-10-27] MEDS ORDERED: HYDROmorphone 1 MG/ML 1 ML SYRINGE IM STA (17:35)
[2019-10-27] MEDS: PANTOPRAZOLE 40 MG TABLET PO SCH (17:59)
[2019-10-27] MEDS ORDERED: HYDROmorphone 1 MG/ML 1 ML SYRINGE IM PRN (18:14)
[2019-10-27] MEDS ORDERED: FLUCONAZOLE 100 MG TAB PO SCH (18:15)
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
[2019-10-27] MEDS: SODIUM CHLORIDE 0.9% 1,000 ML IV SCH (18:59)
[2019-10-27] MEDS: HEPARIN SODIUM,PORCINE 5,000 UNIT/ML 1 ML VIAL SQ SCH (20:13)
[2019-10-27] MEDS ORDERED: METOPROLOL TARTRATE 25 MG TAB PO SCH (21:00)
[2019-10-27] MEDS: FLUCONAZOLE 100 MG TAB PO SCH (22:14)
[2019-10-28] MEDS: HEPARIN SODIUM,PORCINE 5,000 UNIT/ML 1 ML VIAL SQ SCH ×4 (00:07→23:37)
[2019-10-28] MEDS: HYDROmorphone 1 MG/ML 1 ML SYRINGE IVP PRN ×5 (00:26→23:56)
[2019-10-28] MEDS: methylPREDNISolone SOD SUCCI 125 MG/2 ML VIAL IV SCH ×5 (00:32→23:55)
[2019-10-28] MEDS: CEFEPIME 1 GM in SODIUM CHLORIDE 0.9% 50 ML IVPB SCH ×5 (00:37→23:56)
[2019-10-28] MEDS ORDERED: VANCOMYCIN 750 MG in SODIUM CHLORIDE 0.9% 250 ML IVPB SCH (06:00)
--- NOTE | 2019-10-28 06:40 | XR ---
EXAMINATION TYPE: XR chest 1V portable DATE OF EXAM: 10/28/2019 HISTORY: pneumonia. REFERENCE: Previous study dated 10/27/2019. FINDINGS: The lungs are overinflated. There continues to be increased density in the right middle lob e. This is improved from previous. The heart is not enlarged. Pleural spaces are clear. IMPRESSION: RESOLVING RIGHT MIDDLE LOBE PNEUMONIA.
[2019-10-28] MEDS: PANTOPRAZOLE 40 MG TABLET PO SCH (07:43)
[2019-10-28] MEDS: FLUCONAZOLE 100 MG TAB PO SCH ×2 (07:44→21:53)
[2019-10-28 08:08] LABS: Basophils % (A) 0 %; Eosinophils % (A) 0 %; HCT 29.6 % (39.0-53.0); Lymphocytes # (A) 0.1 k/uL (1.0-4.8); Lymphocytes % (A) 3 %; MCH 29.4 pg (25.0-35.0); MCHC 32.5 g/dL (31.0-37.0); MCV 90.6 fL (80.0-100.0); Mean Platelet Volume 7.8; Monocytes # (A) 0.1 k/uL (0-1.0); Monocytes % (A) 3 %; Neutrophils # (A) 3.3 k/uL (1.3-7.7); Neutrophils % (A) 92 %; Platelet Count 191 k/uL (150-450); RBC 3.27 m/uL (4.30-5.90); RDW 14.5 % (11.5-15.5); WBC 3.6 k/uL (3.8-10.6)
[2019-10-28 08:13] LABS: ALT 18 U/L (4-49); African American GFR (CKD) >90 (>60 ml/min/1.73 sqM); Albumin 3.1 g/dL (3.5-5.0); Anion Gap 7 mmol/L; Blood Urea Nitrogen 15 mg/dL (9-20); Calcium 8.5 mg/dL (8.4-10.2); Carbon Dioxide 21 mmol/L (22-30); Chloride 106 mmol/L (98-107); Glucose 151 mg/dL (74-99); Non-African American GFR(CKD) >90 (>60 ml/min/1.73 sqM); Sodium 134 mmol/L (137-145); Total Bilirubin 0.5 mg/dL (0.2-1.3); Total Protein 5.6 g/dL (6.3-8.2)
[2019-10-28 08:15] LABS: AST 30 U/L (17-59); Alkaline Phosphatase 32 U/L (38-126); Potassium 5.4 mmol/L (3.5-5.1)
[2019-10-28 08:17] LABS: HGB 9.6 gm/dL (13.0-17.5)
[2019-10-28 10:51] VITALS: BMI 15.5
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
[2019-10-28] MEDS: SODIUM CHLORIDE 0.9% 1,000 ML IV SCH (15:03)
[2019-10-28] MEDS: VANCOMYCIN 1,000 MG in SODIUM CHLORIDE 0.9% 250 ML IVPB SCH ×2 (15:03→21:55)
[2019-10-28 20:05] VITALS: RESP 18
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
[2019-10-29] MEDS: VANCOMYCIN 1,000 MG in SODIUM CHLORIDE 0.9% 250 ML IVPB SCH (05:48)
[2019-10-29] MEDS: methylPREDNISolone SOD SUCCI 125 MG/2 ML VIAL IV SCH ×2 (05:51→12:19)
[2019-10-29] MEDS: HYDROmorphone 1 MG/ML 1 ML SYRINGE IVP PRN ×2 (05:56→12:19)
[2019-10-29 07:37] LABS: African American GFR (CKD) >90 (>60 ml/min/1.73 sqM); Non-African American GFR(CKD) >90 (>60 ml/min/1.73 sqM)
[2019-10-29 07:42] VITALS: BP 126/78; PULSE 59; TEMP 97.7
[2019-10-29] MEDS: PANTOPRAZOLE 40 MG TABLET PO SCH (07:47)
[2019-10-29] MEDS: FLUCONAZOLE 100 MG TAB PO SCH (07:47)
[2019-10-29] MEDS: HEPARIN SODIUM,PORCINE 5,000 UNIT/ML 1 ML VIAL SQ SCH (07:47)
[2019-10-29] MEDS: SODIUM CHLORIDE 0.9% 1,000 ML IV SCH (07:48)
[2019-10-29] MEDS ORDERED: CEFEPIME 2 GM in SODIUM CHLORIDE 0.9% 50 ML IVPB SCH (09:00)
[2019-10-29] MEDS ORDERED: CEFEPIME 2 GM in SODIUM CHLORIDE 0.9% 100 ML IVPB SCH (09:00)
[2019-10-29 09:10] LABS: Basophils % (A) 0 %; Eosinophils % (A) 0 %; HCT 31.1 % (39.0-53.0); Hypochromasia Slight; Lymphocytes # (A) 0.2 k/uL (1.0-4.8); Lymphocytes % (A) 3 %; MCH 29.4 pg (25.0-35.0); MCHC 32.3 g/dL (31.0-37.0); MCV 91.2 fL (80.0-100.0); Mean Platelet Volume 8.1; Monocytes # (A) 0.1 k/uL (0-1.0); Monocytes % (A) 2 %; Neutrophils # (A) 5.3 k/uL (1.3-7.7); Neutrophils % (A) 93 %; Platelet Count 191 k/uL (150-450); RBC 3.41 m/uL (4.30-5.90); RDW 14.6 % (11.5-15.5); WBC 5.7 k/uL (3.8-10.6)
[2019-10-29 09:16] LABS: Anion Gap 5 mmol/L; Blood Urea Nitrogen 19 mg/dL (9-20); Calcium 8.6 mg/dL (8.4-10.2); Carbon Dioxide 23 mmol/L (22-30); Chloride 109 mmol/L (98-107); Glucose 123 mg/dL (74-99); Potassium 5.3 mmol/L (3.5-5.1); Sodium 137 mmol/L (137-145)
[2019-10-29 09:58] LABS: Prolactin 5.5 ng/mL (2.1-17.7)
[2019-10-29 11:32] LABS: % Iron Saturation 37.65 (15.00-50.00); Iron 93 ug/dL (65-175); Total Iron Binding Capacity 247 ug/dL (228-460)
[2019-10-29 11:46] LABS: Folate, Serum 10.9 ng/mL
[2019-10-29 11:56] LABS: T Helper Cell (CD4) <5 cell/ul (443-1471); T Helper Cell (CD4) % 2 % (35-66); T Suppressor Cell (CD8) 35 cell/ul (190-832); T Suppressor Cell (CD8) % 22 % (9-37); T4/T8 Ratio (CD4:CD8) <0.1 (1.0-3.7)
[2019-10-29] MEDS ORDERED: VANCOMYCIN TROUGH DUE 1 EACH MISC MISCELLANE ONE (13:00)
--- NOTE | 2019-10-29 15:25 | PN ---
PROGRESS NOTE DATE OF SERVICE: 10/29/2019 REASON FOR FOLLOWUP: Pneumonia, HIV. INTERVAL HISTORY: The patient is currently afebrile. The patient is breathing more comfortably. The patient's cough has decreased in intensity, less productive. No chest pain. No nausea. No vomiting. No abdominal pain or diarrhea. Apparently the patient is insisting on going home. PHYSICAL EXAMINATION: Blood pressure 126/78 with a pulse of 59, temperature 97.7. He is 94% on room air. General description is a middle-aged male lying in bed in no distress. RESPIRATORY SYSTEM: Unlabored breathing. Clear to auscultation anteriorly. HEART: S1, S2. Regular rate and rhythm. ABDOMEN: Soft. No tenderness. LABS: Hemoglobin is 10, white count 5.7, BUN of 19, creatinine 0.77. Sputum cultures have been normal respiratory yary. DIAGNOSTIC IMPRESSION AND PLAN: 1. Patient admitted to hospital with pneumonia, community-acquired. Sputum has been negative for any resistant pathogen. Prescription for Levaquin has been sent by the admitting physician. 2. Patient with HIV. Biktarvy prescription has been sent again to the local pharmacy. Advised to take it regularly, not to miss a single dose, and follow up in the office in a few weeks. MMODL / IJN: [id number] /
--- NOTE | 2019-10-29 18:03 | P.DS ---
Providers Date of admission: 10/27/19 17:21 Expected date of discharge: 10/29/19 Attending physician: Demetria Ceballos DO Consults: 10/27/19 17:21 Consult Physician Routine Consulting Provider: Diana Chery Consult Reason/Comments: HIV. PNA Do you want consulting provider notified?: Yes Primary care physician: Stated None Hospital Course: This is a summary of care as patient left AMA Discharge Diagnosis: Pneumonia, possible gram-negative MRSA, fungal, PCP Acute exacerbation of COPD AIDS Underweight with cachexia and BMI 15.6. AIDS related Protein calorie malnutrition, moderate Normocytic anemia Hyponatremia Hyperkalemia Tobacco abuse Hospital Course: Patient is a 49-year-old male with known AIDS, COPD, prior GI bleed, CVA, history of CMV, and prior head injury who presented to the hospital with complaints of shortness of breath and fevers for several weeks duration. On arrival to the ER here he was febrile with a T-max of 103.1. Laboratory analysis showed a white blood cell count of 4.3, hemoglobin 10.2, sodium 132. Chest x-ray showed right middle lobe pneumonia. Conjunctivae are infection was negative. Pro-calcitonin mildly elevated at 0.33, ferritin significantly elevated at 1171, LDH normal at 407. He was diagnosed with acute exacerbation of COPD and pneumonia possible gram-negative MRSA with immunosuppression. Infectious disease was consulted. They recommended continuing the patient on vancomycin and cefepime. They recommended Bictarvy on discharge secondary to failure of multiple other medications. Patient has been noncompliant with multiple treatment medication regimen. He was also here in August 2019 secondary to pneumonia and at that time his CD4 count 1. On 10/27 his chest x-ray showed improvement improving right middle lobe infiltrate. Repeat CD4 was less then 5. On the morning of 10/28 he was requesting to be discharged. I discussed with them as potassium was slightly elevated at 5.3, he continued to have a right middle lobe pneumonia on his last chest x-ray, he severely immune compromised. I recommended that he stay in the hospital. However he states that he takes [place] in a wheelchair needs to be at home. He states that he has been unable to follow up with Dr. Chery as he does not have a ride, he also suggested telehealth visits which she declined stating that he doesn't have phone. He reports that he is "poor". I told him if he leaves AMA I will prescribe him Levaquin and Diflucan to see if that will treat his pneumonia (sputum culture did show Susie). However I told him my concerns are that these will not adequately treat his infection and that this infection will continue to worsen and it could result in . Patient still elected to leave AGAINST MEDICAL ADVICE. Patient seen and examined at bedside. He states his breathing is better, no chest pain, no nausea or vomiting. Complaining of thrush. Vital signs reviewed and stable. General: non toxic, no distress, appears at stated age, temporal wasting, cachectic Derm: warm, dry Head: atraumatic, normocephalic, symmetric Eyes: EOMI, no lid lag, anicteric sclera Mouth: no lip lesion, mucus membranes dry Cardiovascular: S1S2 reg, no murmur, positive posterior tibial pulse bilateral, Lungs: Decreased breath sounds bilaterally with faint wheezing, no rhonchi, no rales , no accessory muscle use A total of 25 minutes of time were spent preparing this complex discharge summary . Patient Condition at Discharge: Stable Plan - Discharge Summary New Discharge Prescriptions: New Fluconazole [Diflucan] 100 mg PO DAILY #14 tab Levofloxacin [Levaquin] 750 mg PO DAILY 7 Days #7 tab Bictegrav/Emtricit/Tenofov Ala [Biktarvy 50-200-25 mg Tablet] 1 each PO DAILY #30 tablet No Action Metoprolol Tartrate [Lopressor] 25 mg PO BID #60 tablet Albuterol Sulfate [Ventolin HFA] 1 - 2 puff INHALATION RT-Q6H PRN PRN Reason: Shortness Of Breath Fluticasone/Salmeterol [Advair 250-50 Diskus] 1 puff INHALATION RT-BID Discharge Medication List Metoprolol Tartrate [Lopressor] 25 mg PO BID #60 tablet 09/18/19 [Rx] Albuterol Sulfate [Ventolin HFA] 1 - 2 puff INHALATION RT-Q6H PRN 10/27/19 [History] Fluticasone/Salmeterol [Advair 250-50 Diskus] 1 puff INHALATION RT-BID 10/27/19 [History] Bictegrav/Emtricit/Tenofov Ala [Biktarvy 50-200-25 mg Tablet] 1 each PO DAILY #30 tablet 10/29/19 [Rx] Fluconazole [Diflucan] 100 mg PO DAILY #14 tab 10/29/19 [Rx] Levofloxacin [Levaquin] 750 mg PO DAILY 7 Days #7 tab 10/29/19 [Rx] Follow up Appointment(s)/Referral(s): None,Stated [Primary Care Provider] - 1-2 days Diana Chery MD [STAFF PHYSICIAN] - 4 Weeks Discharge Disposition: Left Against Medical Advice
[2019-10-29 21:15] LABS: HIV-1 RNA DETECTED (Not detected)
== END 2019-10-29 14:00 | disposition left against medical advice (07) | DRG 975 ==
LOC: EC 15:24 → 4SSUR 17:21
PROVIDERS: ADMIT Internal Medicine; ATTEND Internal Medicine
DX: B20 Human immunodeficiency virus [HIV] disease (principal); B59 Pneumocystosis; E44.0 Moderate protein-calorie malnutrition; B37.1 Pulmonary candidiasis; J15.29 Pneumonia due to other staphylococcus; E87.1 Hypo-osmolality and hyponatremia; I69.354 Hemiplegia and hemiparesis following cerebral infarction affecting left non-dominant side; J44.0 Chronic obstructive pulmonary disease with (acute) lower respiratory infection; J44.1 Chronic obstructive pulmonary disease with (acute) exacerbation; Z68.1 Body mass index [BMI] 19.9 or less, adult; D64.9 Anemia, unspecified; E87.5 Hyperkalemia; F17.210 Nicotine dependence, cigarettes, uncomplicated; F90.9 Attention-deficit hyperactivity disorder, unspecified type; T50.996A Underdosing of other drugs, medicaments and biological substances, initial encounter; Z79.899 Other long term (current) drug therapy; Z82.49 Family history of ischemic heart disease and other diseases of the circulatory system; Z87.01 Personal history of pneumonia (recurrent); Z87.828 Personal history of other (healed) physical injury and trauma; Z88.5 Allergy status to narcotic agent; Z20.828 Contact with and (suspected) exposure to other viral communicable diseases; Z88.2 Allergy status to sulfonamides; Z88.8 Allergy status to other drugs, medicaments and biological substances; Z91.19 Patient's noncompliance with other medical treatment and regimen; R56.9 Unspecified convulsions; K59.00 Constipation, unspecified; Z86.19 Personal history of other infectious and parasitic diseases; Z87.19 Personal history of other diseases of the digestive system; Z71.6 Tobacco abuse counseling; Z98.41 Cataract extraction status, right eye
CPT/HCPCS: 36415; 71045; 80048; 80053; 82607; 82652; 82746; 83540; 83550; 83605; 83735; 84132; 84146; 85025; 85610; 85730; 86360; 87040; 87070; 87205; 87535; 87635; 93005; 96365; 96367; 96375; 96376; 99291